=== PATIENT | female | born 1940 | race Caucasian/White ===

== ENCOUNTER 2021-03-07 15:27 | Outpatient (REF) | payer MEDICARE, SELFPAY ==
--- NOTE | ~2021-03-07 | XR_ITS ---
EXAMINATION: XR CHEST CLINICAL INFORMATION: Emphysema COMPARISON: Previous chest x-rays most recent July 2017 TECHNIQUE: 2 views of the chest were obtained. FINDINGS: The cardiac silhouette does not appear enlarged. The pulmonary chun are prominent questionable for pulmonary artery hypertension. The thoracic aorta is slightly tortuous and calcified. The lungs are well inflated. There is tenting of the right hemidiaphragm. The lungs are otherwise clear. There is no pleural effusion or pneumothorax. There is mild scoliosis and degenerative change of the spine. XR/XR chest 2V IMPRESSION: Well-inflated length lungs. Prominent pulmonary arteries questionable for pulmonary artery hypertension.
== END 2021-03-07 15:28 | disposition home or self-care (01) ==
LOC: HO.XRAY 15:27
PROVIDERS: PCP Internal Medicine; Visit Provider Internal Medicine
DX: J43.1 Panlobular emphysema (principal)
CPT/HCPCS: 71046

== ENCOUNTER → 2021-06-27 15:14 | Outpatient (BNVA) | payer MEDICARE, SELFPAY | PROVIDERS: PCP Internal Medicine; Visit Provider Hospitalist | DX: J43.2 Centrilobular emphysema (principal); J96.11 Chronic respiratory failure with hypoxia; J98.11 Atelectasis; Z88.0 Allergy status to penicillin; Z88.8 Allergy status to other drugs, medicaments and biological substances; Z87.891 Personal history of nicotine dependence | CPT/HCPCS: 99202 ==

== ENCOUNTER 2021-07-11 10:52 | Outpatient (REF) | payer MEDICARE, SELFPAY ==
[2021-07-11 10:56] LABS: MANUAL DIFF FLAG NO
[2021-07-11 11:20] LABS: Basophils Absolute Auto 0.1 X10*3/uL (0.0-0.2); Basophils Percent Auto 0.7 % (0-2); Eosinophils Absolute Auto 0.3 X10*3/uL (0.0-0.4); Eosinophils Percent Auto 4.4 % (0-4); Hematocrit 39.9 % (37-47); Hemoglobin 12.9 g/dl (12.0-16.0); Imm Gran Abs Auto 0.02 X10*3/uL (0.00-0.03); Imm Gran Pct Auto 0.3 % (0.0-0.4); Lymphocytes Absolute Auto 1.8 X10*3/uL (1.2-4.9); Lymphocytes Percent Auto 23.8 % (20-40); Mean Corpuscular HGB Conc 32.3 g/dl (31.0-35.0); Mean Corpuscular Hemoglobin 28.5 pg (27.0-33.0); Mean Corpuscular Volume 88.3 fL (80-98); Mean Platelet Volume 10.1 fL (9.4-12.3); Monocytes Absolute Auto 0.7 X10*3/uL (0.1-1.2); Monocytes Percent Auto 9.8 % (2-11); Neutrophils Absolute Auto 4.6 X10*3/uL (2.0-8.3); Platelet Count 286 X10*3/uL (160-400); Red Blood Count 4.52 X10*6/uL (4.20-5.50); Red Cell Distribution Width 12.8 % (11.0-16.0); White Blood Count 7.6 X10*3/uL (4.8-10.8)
[2021-07-11 11:33] LABS: Glucose Urine UA NEG (NEG); Leukocyte Esterase Urine 1+ (NEG); Nitrite Urine NEG (NEG); Urine Blood NEG (NEG); Urine Ketones NEG (NEG); Urine Protein NEG (NEG-TRACE)
[2021-07-11 11:52] LABS: Appearance Urine CLEAR; Color Urine YELLOW
[2021-07-11 12:07] LABS: Vitamin D 25-OH Total 24.3 ng/mL (>30)
[2021-07-11 12:08] LABS: Alanine Aminotransferase 12 U/L (0-31); Albumin Level 4.2 g/dL (3.5-5.0); Alkaline Phosphatase 53 U/L (39-117); Anion Gap 13 (12-20); Aspartate Amino Transferase 16 U/L (5-31); Bilirubin Total 0.6 mg/dL (0.0-1.0); Blood Urea Nitrogen 17 mg/dL (9-16); Calcium 9.8 mg/dL (8.4-10.2); Carbon Dioxide 30 mmol/L (22-29); Chloride 97 mmol/L (96-108); Cholesterol 193 mg/dL; Estimated Glomerular Filt Rate 44; Glucose Fasting 98 mg/dL (60-99); HDL Cholesterol 60 mg/dL; LDL Cholesterol Calculated 115 mg/dl; Potassium 4.7 mmol/L (3.3-5.1); Sodium 135 mmol/L (135-145); Total Protein 6.9 g/dL (6.5-8.0); Triglycerides 93 mg/dL
[2021-07-11 12:20] LABS: RBC Urine 0 /HPF (0); Squamous Epithelial Cell Urine 1+ /LPF; WBC Urine 30-49 /HPF (0-4)
[2021-07-11 12:21] LABS: Bacteria Urine 2+ /LPF; Mucus Urine 1+ /LPF; Renal Epithelial Cells Urine 1+ /LPF
== END 2021-07-11 10:53 | disposition home or self-care (01) ==
LOC: HO.LNP 10:52
PROVIDERS: Visit Provider Internal Medicine
DX: I10 Essential (primary) hypertension (principal); E78.00 Pure hypercholesterolemia, unspecified; J43.1 Panlobular emphysema; R79.89 Other specified abnormal findings of blood chemistry; E55.9 Vitamin D deficiency, unspecified
CPT/HCPCS: 80053; 80061; 81001; 81003; 82306; 85025

== ENCOUNTER 2021-07-11 15:47 | Outpatient (REF) | payer MEDICARE, SELFPAY ==
--- NOTE | 2021-07-11 | PFT_ITS ---
Forced vital capacity, FEV1, XIK19-69, and MVV are all markedly decreased. Post bronchodilator therapy, there is only minimal improvement in TMY05-59. No other significant change. Total lung capacity normal. Residual volume moderately increased. Diffusion capacity is markedly decreased. CONCLUSION: Very severe obstructive airway disorder. No significant response to bronchodilator therapy. Compared to the results of 04/28/2015, there is continued worsening of the obstructive component as well as diffusion capacity. Cristiano Jimenez MD MSB/MODL / [id number]
== END 2021-07-11 15:48 | disposition home or self-care (01) ==
LOC: HO.RESP 15:47
PROVIDERS: PCP Internal Medicine; Visit Provider Hospitalist
DX: J44.9 Chronic obstructive pulmonary disease, unspecified (principal); M81.0 Age-related osteoporosis without current pathological fracture
CPT/HCPCS: 80053; 80061; 81001; 82306; 85025; 94060; 94727; 94729

== ENCOUNTER 2021-08-03 15:47 | Outpatient (REF) | payer MEDICARE, SELFPAY ==
--- NOTE | ~2021-08-03 | XR_ITS ---
EXAMINATION: XR CHEST CLINICAL INFORMATION: Dyspnea COMPARISON: Previous chest x-ray most recent March 2021 TECHNIQUE: 2 views of the chest were obtained. FINDINGS: The cardiac and mediastinal contours are stable. The thoracic aorta is tortuous but unchanged. The lungs are well inflated. There is some scarring or subsegmental atelectasis at the right lung base. The lungs are otherwise clear. There is no pleural effusion or pneumothorax. There are degenerative changes of the spine and curvature to the right. XR/XR chest 2V IMPRESSION: Well-inflated lungs. Chronic scarring or subsegmental atelectasis at the right lung base..
== END 2021-08-03 15:48 | disposition home or self-care (01) ==
LOC: HO.XRAY 15:47
PROVIDERS: PCP Internal Medicine; Visit Provider Hospitalist
DX: J43.2 Centrilobular emphysema (principal); J96.11 Chronic respiratory failure with hypoxia
CPT/HCPCS: 71046; 99212

== ENCOUNTER → 2022-03-02 14:32 | Outpatient (BNVA) | payer MEDICARE, SELFPAY | PROVIDERS: PCP Internal Medicine; Visit Provider Hospitalist | DX: J43.2 Centrilobular emphysema (principal); J96.11 Chronic respiratory failure with hypoxia; J98.11 Atelectasis | CPT/HCPCS: 99212 ==

== ENCOUNTER → 2022-04-03 15:27 | Outpatient (BNVA) | payer MEDICARE, SELFPAY | PROVIDERS: PCP Internal Medicine; Referring Provider Internal Medicine; Visit Provider Internal Medicine Cardiovascular Disease | DX: J96.11 Chronic respiratory failure with hypoxia (principal); I25.10 Atherosclerotic heart disease of native coronary artery without angina pectoris | CPT/HCPCS: 93005; 99212 ==

== ENCOUNTER → 2022-06-29 15:44 | Outpatient (BNVA) | payer MEDICARE, SELFPAY | PROVIDERS: PCP Internal Medicine; Visit Provider Hospitalist | DX: J43.2 Centrilobular emphysema (principal); J96.11 Chronic respiratory failure with hypoxia; J98.11 Atelectasis; R06.00 Dyspnea, unspecified; Z79.899 Other long term (current) drug therapy; Z99.81 Dependence on supplemental oxygen | CPT/HCPCS: 99212 ==

== ENCOUNTER 2023-02-22 15:42 | Outpatient (REF) | payer MEDICARE, SELFPAY ==
--- NOTE | ~2023-02-22 | XR_ITS ---
EXAMINATION: XR CHEST CLINICAL INFORMATION: R05.9 - Cough, unspecified COMPARISON: Chest radiographs 08/03/2021, 03/07/2021 TECHNIQUE: 2 views of the chest were obtained. FINDINGS: Lungs are clear and there is no airspace consolidation or groundglass opacity or effusion. Heart size normal. Vascularity normal. The hilar and mediastinal contours and bony structures are similar to prior studies. XR/XR chest 2V IMPRESSION: Lungs clear. No acute intrathoracic disease.
== END 2023-02-22 15:43 | disposition home or self-care (01) ==
LOC: HO.XRAY 15:42
PROVIDERS: PCP Internal Medicine; Visit Provider Hospitalist
DX: R05.9 Cough, unspecified (principal); J43.2 Centrilobular emphysema; J96.11 Chronic respiratory failure with hypoxia; J98.11 Atelectasis
CPT/HCPCS: 71046; 99212

== ENCOUNTER → 2023-05-13 15:29 | Outpatient (BNVA) | payer MEDICARE, SELFPAY | PROVIDERS: PCP Internal Medicine; Referring Provider Internal Medicine; Visit Provider Internal Medicine Cardiovascular Disease | DX: I25.10 Atherosclerotic heart disease of native coronary artery without angina pectoris (principal); R09.89 Other specified symptoms and signs involving the circulatory and respiratory systems | CPT/HCPCS: 93005; 99212 ==

== ENCOUNTER 2023-06-28 11:17 | Outpatient (REF) | payer MEDICARE, SELFPAY ==
[2023-06-28 11:25] LABS: MANUAL DIFF FLAG NO
[2023-06-28 11:30] LABS: Basophils Absolute Auto 0.1 X10*3/uL (0.0-0.2); Basophils Percent Auto 1.1 % (0-2); Eosinophils Absolute Auto 0.3 X10*3/uL (0.0-0.4); Eosinophils Percent Auto 5.1 % (0-4); Hematocrit 40.6 % (37.0-47.0); Hemoglobin 13.4 g/dl (12.0-16.0); Imm Gran Abs Auto 0.03 X10*3/uL (0.00-0.03); Imm Gran Pct Auto 0.5 % (0.0-0.4); Lymphocytes Absolute Auto 1.6 X10*3/uL (1.2-4.9); Lymphocytes Percent Auto 24.1 % (20-40); Mean Corpuscular Hemoglobin 29.5 pg (27.0-33.0); Mean Corpuscular Volume 89.4 fL (80.0-98.0); Mean Platelet Volume 9.8 fL (9.4-12.3); Monocytes Absolute Auto 0.6 X10*3/uL (0.1-1.2); Monocytes Percent Auto 9.9 % (2-11); Neutrophils Absolute Auto 3.9 x10*3/uL (2.0-8.3); Neutrophils Percent Auto 59.3 % (45-73); Platelet Count 271 X10*3/uL (160-400); Red Blood Count 4.54 X10*6/uL (4.20-5.50); White Blood Count 6.5 X10*3/uL (4.8-10.8)
[2023-06-28 11:50] LABS: Alanine Aminotransferase 12 U/L (0-31); Albumin Level 3.8 g/dL (3.5-5.0); Alkaline Phosphatase 60 U/L (39-117); Anion Gap 14 (12-20); Aspartate Amino Transferase 20 U/L (5-31); Bilirubin Total 0.7 mg/dL (0.0-1.0); Blood Urea Nitrogen 14 mg/dL (9-16); Calcium 9.3 mg/dL (8.4-10.2); Carbon Dioxide 27 mmol/L (22-29); Chloride 96 mmol/L (96-108); Cholesterol 174 mg/dL; Estimated Glomerular Filt Rate 51; Glucose Fasting 96 mg/dL (60-99); HDL Cholesterol 68 mg/dL; LDL Cholesterol Calculated 94 mg/dl; Phosphorus 3.7 mg/dL (2.7-4.5); Potassium 4.5 mmol/L (3.3-5.1); Sodium 132 mmol/L (135-145); Total Protein 6.7 g/dL (6.5-8.0); Triglycerides 63 mg/dL
[2023-06-28 12:03] LABS: Vitamin D 25-OH Total 19.7 ng/mL (>30)
== END 2023-06-28 11:18 | disposition home or self-care (01) ==
LOC: HO.LNP 11:17
PROVIDERS: Referring Provider Internal Medicine Nephrology; Visit Provider Internal Medicine
DX: I12.9 Hypertensive chronic kidney disease with stage 1 through stage 4 chronic kidney disease, or unspecified chronic kidney disease (principal); N18.31 Chronic kidney disease, stage 3a; E78.00 Pure hypercholesterolemia, unspecified; E55.9 Vitamin D deficiency, unspecified; I70.1 Atherosclerosis of renal artery
CPT/HCPCS: 80053; 80061; 82306; 84100; 85025

== ENCOUNTER 2023-09-23 10:56 | Outpatient (REF) | payer MEDICARE, SELFPAY ==
[2023-09-23 10:59] LABS: MANUAL DIFF FLAG NO
[2023-09-23 11:15] LABS: Basophils Absolute Auto 0.1 X10*3/uL (0.0-0.2); Basophils Percent Auto 1.2 % (0-2); Eosinophils Absolute Auto 0.4 X10*3/uL (0.0-0.4); Eosinophils Percent Auto 5.1 % (0-4); Hematocrit 41.7 % (37.0-47.0); Hemoglobin 13.9 g/dl (12.0-16.0); Imm Gran Abs Auto 0.01 X10*3/uL (0.00-0.03); Imm Gran Pct Auto 0.1 % (0.0-0.4); Lymphocytes Absolute Auto 1.9 X10*3/uL (1.2-4.9); Lymphocytes Percent Auto 25.6 % (20-40); Mean Corpuscular HGB Conc 33.3 g/dl (31.0-35.0); Mean Corpuscular Hemoglobin 30.3 pg (27.0-33.0); Mean Corpuscular Volume 90.8 fL (80.0-98.0); Monocytes Absolute Auto 0.8 X10*3/uL (0.1-1.2); Monocytes Percent Auto 10.3 % (2-11); Neutrophils Absolute Auto 4.2 x10*3/uL (2.0-8.3); Neutrophils Percent Auto 57.7 % (45-73); Platelet Count 273 X10*3/uL (160-400); Red Blood Count 4.59 X10*6/uL (4.20-5.50); Red Cell Distribution Width 13.2 % (11.0-16.0); White Blood Count 7.3 X10*3/uL (4.8-10.8)
[2023-09-23 11:31] LABS: Cholesterol 185 mg/dL (<200); HDL Cholesterol 77 mg/dL (>40); LDL Cholesterol Calculated 95 mg/dL (<100); Triglycerides 67 mg/dL (<150)
[2023-09-23 11:42] LABS: Alanine Aminotransferase 13 U/L (0-31); Albumin Level 4.1 g/dL (3.5-5.0); Alkaline Phosphatase 64 U/L (39-117); Anion Gap 12 (12-20); Aspartate Amino Transferase 20 U/L (5-31); Bilirubin Total 0.8 mg/dL (0.0-1.0); Blood Urea Nitrogen 14 mg/dL (9-16); Calcium 9.5 mg/dL (8.4-10.2); Carbon Dioxide 28 mmol/L (22-29); Chloride 98 mmol/L (96-108); Estimated Glomerular Filt Rate 54; Glucose Fasting 98 mg/dL (60-99); Potassium 4.3 mmol/L (3.3-5.1); Sodium 134 mmol/L (135-145); Total Protein 7.2 g/dL (6.5-8.0)
[2023-09-23 11:49] LABS: Vitamin D 25-OH Total 12.3 ng/mL (>30)
[2023-09-23 12:13] LABS: Reflex LDLD? No
== END 2023-09-23 10:57 | disposition home or self-care (01) ==
LOC: HO.LNP 10:56
PROVIDERS: Visit Provider Internal Medicine
DX: I10 Essential (primary) hypertension (principal); E78.00 Pure hypercholesterolemia, unspecified; J43.1 Panlobular emphysema; E55.9 Vitamin D deficiency, unspecified
CPT/HCPCS: 80053; 80061; 82306; 85025

== ENCOUNTER 2023-10-02 15:36 | Outpatient (AMB) | payer MEDICARE, SELFPAY ==
--- NOTE | 2023-10-02 15:38 | A.OFFVIS_ITS ---
Intake Vital Signs 10/02/23 15:45 Height 5 ft 6 in Weight 170 lb BMI 27.4 BP 144/90 H Blood Pressure Location Lt brachial Position Sitting Pulse 60 Pulse Source Pulse Oximeter Intake Visit Reasons: Hypertension Environmental Advisor Required: No Accompanied by: Child Allergies atorvastatin [Lipitor] Allergy (Severe, Verified 10/02/23 15:38) only oral hydralazine [HYDRALAZINE] Allergy (Severe, Unverified 02/22/23 15:50) VOMITING, SYNCOPE labetalol [LABETALOL] Allergy (Unknown, Unverified 02/22/23 15:50) SYNCOPE lisinopril [LISINOPRIL] Allergy (Unknown, Unverified 02/22/23 15:50) HAIR FALLS OUT metoprolol [METOPROLOL] Allergy (Unknown, Unverified 02/22/23 15:50) HAIR FALLS OUT penicillin V Allergy (Unknown, Verified 02/22/23 15:50) yeast infections HPI HPI Comments History of Present Illness Details I had the delight of seeing Bhavna in follow up of her chronic kidney disease and hypertension. She had been accompanied by her daughter. She has been having significant progressive weight loss, but claimed to be fairly stable now. 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 Her BP is currently at goal at home. She is compliant with her medications. She has H/O CVA as well as carotid stenosis. She has no H/O chest pain, dizziness, PND, edema or orthopnea. She also follows up with Dr Isaac Freitas Speech/Language Therapist. Her renal function remains at baseline. She feels her COPD has been progressively getting worse. [facility] Medical History (Updated 10/02/23 @ 16:09 by Andrey Nuñez MD) Cough History of sepsis (~01/2017) Hyperlipidemia Hypertension Former smoker, stopped smoking in distant past CAD (coronary artery disease) Osteoporosis (~2018) Stenosis of middle cerebral artery History of TIAs History of CVA (cerebrovascular accident) (~07/2017) Dyspnea Atelectasis Chronic hypoxemic respiratory failure COPD (chronic obstructive pulmonary disease) Surgical History History of heart artery stent (~2011) History of hand surgery (~2004) History of left knee replacement (~2014) History of arthroscopy of right knee (~2003) History of carpal tunnel surgery of left wrist (~1998) Family History Brother CAD (coronary artery disease) Father CAD (coronary artery disease) Myocardial infarction Mother Leukemia Social History Patient Tobacco Use Status: Former Tobacco user Quit Date: 2001 Tobacco use type: Cigarette Years Smoked: (1ppd x 40yrs, quit 2001) Review of Systems Const All systems reviewed & are unremarkable except as noted in HPI and below Physical Exam Vital Signs: Last Vital Signs Pulse 60 10/02/23 15:45 BP 144/90 H 10/02/23 15:45 BMI result Body Mass Index 27.4 Const General: no acute distress Orientation/consciousness: patient oriented x3 HEENT Head: Yes normocephalic Mouth: Normal oral and palatal mucosa present Eyes EOM: EOMs intact bilaterally Neck Neck: Yes supple Resp Auscultation: diminished lung sounds Cardio Jugular venous distension: no JVD Rate: regular rate GI Palpation (GI): Soft to palpation Auscultation: normal bowel sounds Skin General skin exam: no rashes or lesions noted Neuro General: patient oriented x3 and moves all extremities Extrem Other: No edema Assessment & Plan Assessment & Plan (1) CKD (chronic kidney disease) stage 3, GFR 30-59 ml/min: Code(s): N18.30 - Chronic kidney disease, stage 3 unspecified (2) Hypertension: Code(s): I10 - Essential (primary) hypertension Plan CKD 3 due to jeannette vascular disease and ischemic nephropathy Hemodynamics stable. BP at goal; Volume status optimal Tolerating ARB. Renal function remains at baseline Low sodium diet; Good hydration; No NSAID's Reordered losartan. Follow up blood work ordered More than 50 % time spent discussing her CKD/HTN All her and her daughters questions answered; F/U given Orders: Orders Electrolytes Today I10 - Essential (primary) hypertension, N18.30 - Chronic kidney disease, stage 3 unspecified Blood Urea Nitrogen Today I10 - Essential (primary) hypertension, N18.30 - Chronic kidney disease, stage 3 unspecified Creatinine Today I10 - Essential (primary) hypertension, N18.30 - Chronic kidney disease, stage 3 unspecified Calcium Today I10 - Essential (primary) hypertension, N18.30 - Chronic kidney disease, stage 3 unspecified Medications: New losartan (1.5 x 50 mg) 75 mg orally; Take 25mg at noon 50mg at night 145 tabs 8RF Coding Level of Care Code Est Pt Level 5 (09891) Diagnoses CKD (chronic kidney disease) stage 3, GFR 30-59 ml/min N18.30 Hypertension I10
[2023-10-02 15:45] VITALS: BP 144/90; PULSE 60; BMI 27.4
== END 2023-10-02 17:38 | disposition home or self-care (01) ==
PROVIDERS: PCP Internal Medicine; Visit Provider Internal Medicine Nephrology
DX: N28.0 Ischemia and infarction of kidney (principal); I12.9 Hypertensive chronic kidney disease with stage 1 through stage 4 chronic kidney disease, or unspecified chronic kidney disease; N18.30 Chronic kidney disease, stage 3 unspecified
CPT/HCPCS: 99214

== ENCOUNTER → 2023-10-02 15:36 | Outpatient (BNVA) | payer MEDICARE, SELFPAY | PROVIDERS: PCP Internal Medicine; Visit Provider Internal Medicine Nephrology | DX: I12.9 Hypertensive chronic kidney disease with stage 1 through stage 4 chronic kidney disease, or unspecified chronic kidney disease (principal); N18.30 Chronic kidney disease, stage 3 unspecified | CPT/HCPCS: 99212 ==

== ENCOUNTER 2024-05-18 15:01 | Outpatient (AMB) | payer MEDICARE, SELFPAY ==
[2024-05-18 15:17] VITALS: BP 122/80; PULSE 57; BMI 26.3
--- NOTE | 2024-05-18 15:17 | A.OFFVIS_ITS ---
Vital Signs 05/18/24 15:17 Height 5 ft 6 in Weight 163 lb 2.273 oz BMI 26.3 BP 122/80 Blood Pressure Location Lt brachial Position Sitting Pulse 57 Intake Visit Reasons: 1 year follow up Intake Note: 1 year follow-up with ekg feeling good Vibrating Screen Operator Required: No Allergies atorvastatin [Lipitor] Allergy (Severe, Verified 10/02/23 15:38) only oral hydralazine [HYDRALAZINE] Allergy (Severe, Unverified 02/22/23 15:50) VOMITING, SYNCOPE labetalol [LABETALOL] Allergy (Unknown, Unverified 02/22/23 15:50) SYNCOPE lisinopril [LISINOPRIL] Allergy (Unknown, Unverified 02/22/23 15:50) HAIR FALLS OUT metoprolol [METOPROLOL] Allergy (Unknown, Unverified 02/22/23 15:50) HAIR FALLS OUT penicillin V Allergy (Unknown, Verified 02/22/23 15:50) yeast infections Medication List - Last Reconciled 05/18/24 by Isaac Alonzo MD albuterol sulfate 90 mcg/actuation 1 puff PO Q4H PRN alirocumab (Praluent Pen) 150 mg subcut Q2W aspirin 81 mg PO DAILY budesonide 0.25 mg (2 mL) inhalation BID 30 days carvedilol 25 mg PO BID celecoxib 200 mg PO DAILY PRN doxazosin 4 mg PO DAILY fluoxetine 20 mg PO DAILY ipratropium-albuterol 0.5 mg-3 mg(2.5 mg base)/3 mL 3 mL inhalation QID 30 days losartan 75 mg orally; Take 25mg at noon 50mg at night nebulizers As directed omeprazole 20 mg PO DAILY Oxygen Home Use As directed spironolactone 25 mg PO DAILY HPI Comments Details: Bhavna comes for follow-up. She is accompanied by her daughter. She has been doing well from her perspective. She continues to have significant exertional shortness of breath and fatigue related to COPD. Has been advised to use oxygen all the time. No anginal sounding chest discomfort which was interscapular and right shoulder discomfort for her. She is taking all her medications. Her LDL is well optimized for her at 94 mg/dL. A blood pressure is also not well optimized. She has no lightheadedness, syncope. No clear orthopnea, PND, palpitations. She does have swelling in the left lower extremity since the warm weather. [facility] Medical History (Updated 10/02/23 @ 16:09 by Andrey Nuñez MD) Cough History of sepsis (~01/2017) Hyperlipidemia Hypertension Former smoker, stopped smoking in distant past CAD (coronary artery disease) Osteoporosis (~2018) Stenosis of middle cerebral artery History of TIAs History of CVA (cerebrovascular accident) (~07/2017) Dyspnea Atelectasis Chronic hypoxemic respiratory failure COPD (chronic obstructive pulmonary disease) Surgical History History of heart artery stent (~2011) History of hand surgery (~2004) History of left knee replacement (~2014) History of arthroscopy of right knee (~2003) History of carpal tunnel surgery of left wrist (~1998) Family History Brother CAD (coronary artery disease) Father CAD (coronary artery disease) Myocardial infarction Mother Leukemia Social History Patient Tobacco Use Status: Former Tobacco user Tobacco use type: Cigarette Years Smoked: (1ppd x 40yrs, quit 2001) Review of Systems Const Denies chills, Denies fatigue, Denies fever(s), Denies frequent falls, Denies weakness, Denies weight gain and Denies weight loss ENT Denies dizziness Card Denies chest pain, Denies leg edema, Denies lightheadedness, Denies palpitations, Denies dyspnea, Denies dyspnea on exertion, Denies orthopnea and Denies other (loss of consciousness) Resp Denies cough, Denies dyspnea and Denies dyspnea on exertion GI Denies hematochezia and Denies change in stool character Musc Denies abnormal gait, Denies muscle weakness, Denies numbness, Denies radiating pain into limb and Denies tingling Neuro Denies abnormal gait, Denies dizziness, Denies frequent falls, Denies numbness, Denies tingling and Denies weakness Endo Denies fatigue and Denies palpitations Physical Exam Vital Signs: Last Vital Signs Pulse 57 05/18/24 15:17 BP 122/80 05/18/24 15:17 BMI result Body Mass Index 26.3 Const General: cooperative, comfortable, no acute distress, alert and awake Nutritional Appearance: obese Orientation/consciousness: patient oriented x3 Limitations: ambulation with walker Neck Neck: Yes trachea midline, Yes supple and Yes no JVD Resp Effort & Inspection: normal respiratory effort Auscultation: diminished lung sounds Cardio Jugular venous distension: no JVD Palpation: normal PMI Rate: regular rate Rhythm: regular rhythm Heart sounds: S1 normal heart sound present, S2 normal heart sound present, no click, no gallops, no murmurs and no rubs GI Inspection: Yes obesity Auscultation: normal bowel sounds Skin General skin exam: no rashes or lesions noted and ecchymosis Neuro General: patient oriented x3 and no focal motor deficits Extrem General: No clubbing, No cyanosis and Yes pedal edema (Left lower extremity) Office Procedures EKG Details: EKG shows sinus bradycardia at 57 beats per minute bifascicular, 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 Given her current limited functional status will continue medical therapy. No further workup is indicated. Continue lifelong aspirin therapy. Has had significant response to PCSK9 inhibitor therapy on a long-term basis will continue Praluent to improve her vascular outcomes. Continue aggressive blood pressure control, see below. Encouraged to use oxygen all the time for her hypoxemic respiratory failure. (2) Labile blood pressure: Code(s): R09.89 - Other specified symptoms and signs involving the circulatory and respiratory systems Category: Medical Plan: Markedly labile blood pressure which is not well controlled on current regimen. She has had difficulty managing a blood pressure but at current time she is doing well with her meds. Importance of good blood pressure control was discussed. Low-salt diet was discussed. Advised to maintain adequate hydration. Orthostatic precautions were discussed. Will follow up in the clinic in 1 year's time, sooner p.r.n.. Thank you for allowing me to partake in her care Medications: Refilled alirocumab (Praluent Pen) 150 mg subcut Q2W 6 mL 3RF Coding Level of Care Code Est Pt Level 4 (64210) Diagnoses CAD (coronary artery disease) I25.10 Labile blood pressure R09.89 CPT Codes EKG - CPT: 86155-[id number], Complete ([id number])
== END 2024-05-18 15:49 | disposition home or self-care (01) ==
PROVIDERS: PCP Internal Medicine; Visit Provider Internal Medicine Cardiovascular Disease
DX: I25.10 Atherosclerotic heart disease of native coronary artery without angina pectoris (principal); R09.89 Other specified symptoms and signs involving the circulatory and respiratory systems
CPT/HCPCS: 93010; 99214

== ENCOUNTER → 2024-05-18 15:01 | Outpatient (BNVA) | payer MEDICARE, SELFPAY | PROVIDERS: PCP Internal Medicine; Visit Provider Internal Medicine Cardiovascular Disease | DX: I25.10 Atherosclerotic heart disease of native coronary artery without angina pectoris (principal); R09.89 Other specified symptoms and signs involving the circulatory and respiratory systems | CPT/HCPCS: 93005; 99212 ==

== ENCOUNTER 2024-06-29 13:54 | Outpatient (AMB) | payer MEDICARE, SELFPAY ==
--- NOTE | 2024-06-29 14:02 | A.OFFVIS_ITS ---
Vital Signs 06/29/24 14:05 Height 5 ft 6 in Weight 163 lb 2.273 oz BMI 26.3 Pulse 63 Pulse Source Pulse Oximeter Pulse Oximetry (%) 92 Oxygen Delivery Method Room Air Comment 2 Liters Oxygen([facility]) Intake Visit Reasons: COPD Registered Route Associate Required: No Allergies atorvastatin [Lipitor] Allergy (Severe, Verified 06/29/24 14:08) only oral hydralazine [HYDRALAZINE] Allergy (Severe, Unverified 06/29/24 14:08) VOMITING, SYNCOPE labetalol [LABETALOL] Allergy (Unknown, Unverified 06/29/24 14:08) SYNCOPE lisinopril [LISINOPRIL] Allergy (Unknown, Unverified 06/29/24 14:08) HAIR FALLS OUT metoprolol [METOPROLOL] Allergy (Unknown, Unverified 06/29/24 14:08) HAIR FALLS OUT penicillin V Allergy (Unknown, Verified 06/29/24 14:08) yeast infections HPI Comments Details: The patient is a 84-year-old with a standing history of COPD. The patient taking her inhalers prescribed. This includes Symbicort and Spiriva. However she has been complaining worsening dyspnea exertion, moderate to severe. Therefore she has not been very active. Severe years ago The patient was admitted to the hospital with symptoms consistent with CVA. She did have a chest x-ray demonstrating atelectasis. During that hospitalization she was also transferred to [facility] for an acute CVA. She did not require any tPA. Currently she is taking a baby aspirin. During the visit today the patient did desaturate during 6 minutes walk test. The patient did qualify for oxygen. Therefore she was placed on 2 L of oxygen and overall she felt lot better. Therefore, I did recommend she start oxygen. She does not like the idea of using a nasal cannula. She is wondering about using a mask. Explained to her that she will need to use a nasal cannula especially for trying to get her a conserving device that she would likely need due to her handicap stay she will need better portability and that will be with a pulse valve. 08/03/2021 the patient is here for a pulmonary follow-up visit. Overall the patient has been doing better on the oxygen. She feels like she is less winded. Although, the oxygen tank does way a lot for her. She does use a walker and she is hopefully getting basket which she can put the small continues tank. OB hard for her to use the pulse valve because she is a mouth breather. In the meantime she should be using the concentrator in the house with the extension cord that will help as well. The patient did undergo pulmonary function studies demonstrating severe COPD with very severe diffusion impairment which goes franck g with her degree of symptoms. She has been on Symbicort and had added Spiriva during the last time. The therapy has been effective. She is wondering if she can try an alternative to see if she can get even better response. I do have a sample trial for Trelegy which I will give her to try for a month to see if this is more effective than the combination that she is on right now. The patient a lso did not go for chest x-ray and she will do that today. If her x-ray is any worse will go ahead and has a further adjusted changes. However if the chest x- ray has not significantly changed will just follow her chest x-rays. The patient is not interested in having extensive evaluations. 03/02/2022 for the patient is here for pulmonary follow-up visit. She continues to have dyspnea on exertion and chest tightness. Moderate severity. She has not gotten any significant relief from the Trelegy. Is also very expensive for her. She does get more relief from her nebulizer. Therefore I did talk to about switching over to just nebulized therapy to try to administer the medication more effectively. The patient is open to this idea. However, she does have a couple new boxes of Trelegy at home. The patient will start DuoNeb 4 times a day and budesonide twice a day. In the meantime I did review her chest x-ray with her demonstrated no acute changes from back in the fall 2020. If the patient continues to be symptomatic will repeat the ox x-ray and potentially additional imaging if that is not helpful. The patient continues use her oxygen both with activity and sleep this has been affecting beneficial for her. She did get a small conserving device which has made a lot easier for portability. 02/22/2023 the patient is here for a pulmonary follow-up visit. Does have dyspnea with activity, mild to moderate. The budesonide has been helpful. In addition to that she has been using her DuoNeb 4 times a day. Using the Combivent instead of the DuoNeb and also at times. She continues use the oxygen with good effect. She has not had to increase the amount. Patient did have a chest x-ray previously that with did evaluate together in the office. It appears that she has some minimal atelectasis at the base. However repeat the x-ray to make sure that has not worsened. Otherwise she is going to continue with current respiratory therapy. 06/29/2024 the patient is here for a pulmonary follow-up visit. The patient overall has been doing okay. Although she has been having significant weight loss. She also has a hard time walking. She is currently on a wheelchair. She does use the oxygen although she does not use it all the time. She knows to use it specially if she is moving around. She does get very short of breath when she is doing minimal activities that is because she sometimes does not use her oxygen. She does check her numbers and sometimes she is in the 80s as far as her oxygen presented patient understands that she needs to keep her oxygen on to maintain a pulse ox above 90%. She has not issues she will call. In the meantime she does continue to use the budesonide with albuterol with ipratropium. She does use the nebulizer about 4 times a day which is her most effective therapy. Will continue the current respiratory regimen. The patient also should get a chest x-ray specially with weight loss. Otherwise patient return in 1 year or sooner if she develops any worsening symptoms. For x-rays abnormal we may need additional imaging studies. [facility] Medical History (Updated 10/02/23 @ 16:09 by Andrey Nuñez MD) Cough History of sepsis (~01/2017) Hyperlipidemia Hypertension Former smoker, stopped smoking in distant past CAD (coronary artery disease) Osteoporosis (~2018) Stenosis of middle cerebral artery History of TIAs History of CVA (cerebrovascular accident) (~07/2017) Dyspnea Atelectasis Chronic hypoxemic respiratory failure COPD (chronic obstructive pulmonary disease) Surgical History History of heart artery stent (~2011) History of hand surgery (~2004) History of left knee replacement (~2014) History of arthroscopy of right knee (~2003) History of carpal tunnel surgery of left wrist (~1998) Family History Brother CAD (coronary artery disease) Father CAD (coronary artery disease) Myocardial infarction Mother Leukemia Social History Patient Tobacco Use Status: Former Tobacco user Tobacco use type: Cigarette Years Smoked: (1ppd x 40yrs, quit 2001) Review of Systems Const Denies night sweats and Reports weight loss ENT Denies change in voice, Denies lip swelling, Denies mouth pain, Reports nasal congestion, Reports nasal discharge and Denies tongue swelling Card Denies chest pain and Reports dyspnea on exertion Resp Reports cough and Reports dyspnea on exertion GI Denies abdominal pain Musc Denies no additional complaints and Reports abnormal gait Neuro Reports abnormal gait Psych Denies no additional complaints Nic/Lymph Denies easy bleeding and Denies lymphadenopathy Aller/Immun Denies lip swelling and Denies tongue swelling Physical Exam Vital Signs: Last Vital Signs Pulse 63 06/29/24 14:05 Pulse Ox 92 06/29/24 14:05 Oxygen Delivery Method Room Air 06/29/24 14:05 BMI result Body Mass Index 26.3 Const General: alert Neck Neck: Yes normal visual inspection, Yes full ROM and Yes no lymphadenopathy Chest Chest palpation & inspection: normal inspection of the chest Resp Auscultation: diminished lung sounds Cardio Rate: regular rate Rhythm: regular rhythm Heart sounds: S1 normal heart sound present and S2 normal heart sound present GI Palpation (GI): Soft to palpation and nontender Auscultation: normal bowel sounds Skin General skin exam: rashes and/or lesions noted Assessment & Plan Assessment & Plan (1) COPD (chronic obstructive pulmonary disease): Code(s): J44.9 - Chronic obstructive pulmonary disease, unspecified Category: Medical Qualifiers: COPD type: emphysema Emphysema type: centrilobular Qualified Code(s): J43.2 - Centrilobular emphysema (2) Chronic hypoxemic respiratory failure: Code(s): J96.11 - Chronic respiratory failure with hypoxia Category: Medical (3) Atelectasis: Code(s): J98.11 - Atelectasis Category: Medical (4) Dyspnea: Code(s): R06.00 - Dyspnea, unspecified Category: Medical Qualifiers: Dyspnea type: dyspnea on exertion Qualified Code(s): R06.00 - Dyspnea, unspecified Plan continue Duoneb QID continue BUdesonide nebs BID THELMA CXR Continue Oxygen 2L with activity and sleep F/U 10-12 months Orders: Orders XR chest 2V Today J43.2 - Centrilobular emphysema Medications: New albuterol sulfate 90 mcg/actuation 2 inhalations inhalation Q6H PRN 18 grams 12RF shortness of breath or wheezing 30 days J44.9 - Chronic obstructive pulmonary disease, unspecified Refilled ipratropium-albuterol 0.5 mg-3 mg(2.5 mg base)/3 mL 3 mL inhalation QID 360 mL 11RF 30 days J44.9 - Chronic obstructive pulmonary disease, unspecified budesonide 0.25 mg (2 mL) inhalation BID 120 mL 11RF 30 days J43.2 - Centrilobular emphysema Coding Level of Care Code Est Pt Level 4 (17748) Complex EM visit Add On G2211 Diagnoses Centrilobular emphysema J43.2 COPD type: emphysema Emphysema type: centrilobular Chronic hypoxemic respiratory failure J96.11 Atelectasis J98.11 Dyspnea on exertion R06.00 Dyspnea type: dyspnea on exertion Time Spent (min) 17
[2024-06-29 14:05] VITALS: PULSE 63; O2SAT 92; BMI 26.3
== END 2024-06-29 15:25 | disposition home or self-care (01) ==
PROVIDERS: PCP Internal Medicine; Visit Provider Hospitalist
DX: J43.2 Centrilobular emphysema (principal); J96.11 Chronic respiratory failure with hypoxia; J98.11 Atelectasis; R06.00 Dyspnea, unspecified
CPT/HCPCS: 99214; G2211

== ENCOUNTER 2024-06-29 13:54 | Outpatient (REF) | payer MEDICARE, SELFPAY ==
--- NOTE | ~2024-06-29 | XR_ITS ---
EXAMINATION: XR CHEST CLINICAL INFORMATION: Centrilobular emphysema. COMPARISON: Chest radiographs dated 02/22/2023; CTA chest dated 11/04/2014. TECHNIQUE: Frontal and lateral views of the chest were obtained. FINDINGS: The heart, great vessels, pulmonary vasculature and mediastinum are stable. There is atherosclerotic calcification and tortuosity of the thoracic aorta. There is hyperinflation. There is mild vertical linear scar/subsegmental atelectasis at the right base, stable from prior examinations including 08/03/2021. No pleural effusion or pneumothorax is seen. There is no acute osseous abnormality. XR/XR chest 2V IMPRESSION: There is mild chronic scar/subsegmental atelectasis at the right base. No focal infiltrate or congestive heart failure is seen.
== END 2024-06-29 13:55 | disposition home or self-care (01) ==
LOC: HO.XRAY 13:54
PROVIDERS: PCP Internal Medicine; Visit Provider Hospitalist
DX: J43.2 Centrilobular emphysema (principal); J96.11 Chronic respiratory failure with hypoxia; J98.11 Atelectasis
CPT/HCPCS: 71046; 99212

== ENCOUNTER 2024-09-11 22:45 | Emergency (ER) | payer MEDICARE, SELFPAY ==
--- NOTE | ~2024-09-11 | CT_ITS ---
EXAMINATION: CT PELVIS WITHOUT CONTRAST CLINICAL INFORMATION: Occult right hip fracture COMPARISON: Right hip radiograph 09/12/2024. TECHNIQUE: Helical scanning was performed with submillimeter collimation through the pelvis. Sagittal and coronal multiplanar 2-D reconstructions were obtained. This CT examination was performed using dose optimization techniques as appropriate, variously including the following: *Automated exposure control *Adjustment of mA and/or kV according to patient size (this includes techniques or standardized protocols for targeted exams where dose is matched to indication/reason for exam; i.e. extremities or head) *Use of iterative reconstruction technique DLP: 396 mGy-cm FINDINGS: The visualized sacrum appears intact. No compression deformities noted in the visualized lower lumbar vertebral bodies. No fractures of the pelvis noted. No diastases of the sacroiliac joints or symphysis pubis. Intact posterior noriega of the acetabulum. The visualized femurs are normal in appearance. Within the abdomen and pelvis no free intraperitoneal fluid collections. Dense aortoiliac calcific atherosclerosis. No soft tissue inflammatory changes noted in the region of the hips. CT/CT pelvis wo IV con IMPRESSION: No acute abnormalities identified. Intact right femur and right hip. Dense aortoiliac calcific atherosclerosis. Electronically signed by: Jamison Landaverde MD 09/12/2024 03:17 AM EDT
--- NOTE | ~2024-09-11 | XR_ITS ---
EXAMINATION: XR CHEST 1 VIEW, XR HIP 1 VIEW RIGHT WITH PELVIS CLINICAL INFORMATION: fall COMPARISON: None. TECHNIQUE: AP pelvis and 2 view series of the right hip; AP chest FINDINGS: Pelvis and right hip: Visualized sacrum appears intact. Partial visualization is made of lower lumbar facet and endplate hypertrophic changes. Arthropathic changes of the hips noted. The visualized right femur appears intact. The posterior wall the right acetabulum appears intact. Moderate scattered atherosclerotic vascular calcifications are noted. CHEST: Normal appearance of the cardiomediastinal structures. Moderate aortic calcific atherosclerosis. No effusions or pneumothoraces. Normal pattern of pulmonary vasculature. No focal pulmonary consolidation. Calcific plaques in the region of the left carotid bulb. Punctate dystrophic calcification along the distal aspect of the left supraspinatus tendon. XR/XR chest 1V IMPRESSION: AP pelvis and right hip: No acute abnormalities. Intact right hip. CHEST: No acute cardiopulmonary abnormalities. Partial visualization of left carotid bulb calcific atherosclerotic plaques. 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 Electronically signed by: Jamison Landaverde MD 09/12/2024 01:52 AM EDT
--- NOTE | ~2024-09-11 | XR_ITS ---
EXAMINATION: XR CHEST 1 VIEW, XR HIP 1 VIEW RIGHT WITH PELVIS CLINICAL INFORMATION: fall COMPARISON: None. TECHNIQUE: AP pelvis and 2 view series of the right hip; AP chest FINDINGS: Pelvis and right hip: Visualized sacrum appears intact. Partial visualization is made of lower lumbar facet and endplate hypertrophic changes. Arthropathic changes of the hips noted. The visualized right femur appears intact. The posterior wall the right acetabulum appears intact. Moderate scattered atherosclerotic vascular calcifications are noted. CHEST: Normal appearance of the cardiomediastinal structures. Moderate aortic calcific atherosclerosis. No effusions or pneumothoraces. Normal pattern of pulmonary vasculature. No focal pulmonary consolidation. Calcific plaques in the region of the left carotid bulb. Punctate dystrophic calcification along the distal aspect of the left supraspinatus tendon. XR/XR hip RT w PEL1V IMPRESSION: AP pelvis and right hip: No acute abnormalities. Intact right hip. CHEST: No acute cardiopulmonary abnormalities. Partial visualization of left carotid bulb calcific atherosclerotic plaques. 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 Electronically signed by: Jamison Landaverde MD 09/12/2024 01:52 AM EDT
[2024-09-11 22:48] VITALS: BP 184/122; PULSE 88; O2SAT 93
[2024-09-11 22:59] VITALS: BP 215/91; PULSE 83; RESP 18; TEMP 36.8; O2SAT 94
[2024-09-11 23:04] VITALS: BP 190/98; PULSE 86; RESP 20; TEMP 36.4; O2SAT 95; BMI 28.2
[2024-09-11 23:09] VITALS: BP 190/98; PULSE 85; RESP 17; TEMP 36.6; O2SAT 95
--- NOTE | 2024-09-11 23:11 | ED.FALL ---
HPI - Fall General Chief Complaint: Fall Stated Complaint: FALL + COLLAR Time Seen by Provider: 09/11/24 23:11 Source: patient Mode of arrival: ambulatory Limitations: no limitations History of Present Illness ED Provider: heri PARNELL Narrative: 84 years old with history of hypertension coronary artery disease history of CVA on aspirin comes here as patient went to kitchen to open the reached to get something lost balance and fell on her right hip was unable to stand up because of pain no other injuries Related Data Home Medications ?Medication ?Instructions ?Recorded ?Confirmed albuterol sulfate 90 mcg/actuation 1 puff PO Q4H PRN Shortness Of 08/03/21 09/12/24 aerosol inhaler Breath Or Wheezing aspirin 81 mg tablet,delayed 81 mg PO DAILY 08/03/21 09/12/24 release doxazosin 4 mg tablet 4 mg PO DAILY 08/03/21 09/12/24 omeprazole 20 mg capsule,delayed 20 mg PO DAILY 08/03/21 09/12/24 release spironolactone 25 mg tablet 25 mg PO DAILY 08/03/21 09/12/24 fluoxetine 20 mg capsule 20 mg PO DAILY 03/02/22 09/12/24 Oxygen Home Use 02/22/23 05/18/24 nebulizers 02/22/23 05/18/24 celecoxib 200 mg capsule 200 mg PO DAILY PRN Pain 10/02/23 09/12/24 Previous Rx's ?Medication ?Instructions ?Recorded losartan 50 mg tablet 75 mg (1.5 x 50 mg) PO .COMPLEX 10/02/23 #145 tabs carvedilol 25 mg tablet 25 mg PO BID #180 tabs 11/29/23 alirocumab 150 mg/mL subcutaneous 150 mg subcut Q2W #6 mL 05/18/24 pen injector (Praluent Pen) budesonide 0.25 mg/2 mL suspension 0.25 mg (2 mL) inhalation BID 30 06/29/24 for nebulization days #120 mL ipratropium 0.5 mg-albuterol 3 mg 3 ml inhalation QID 30 days #360 mL 06/29/24 (2.5 mg base)/3 mL nebulization soln Allergies Allergy/AdvReac Type Severity Reaction Status Date / Time atorvastatin [Lipitor] Allergy Severe only oral Verified 09/11/24 23:06 hydralazine [HYDRALAZINE] Allergy Severe VOMITING, Verified 09/11/24 23:06 SYNCOPE labetalol [LABETALOL] Allergy Unknown SYNCOPE Verified 09/11/24 23:06 lisinopril [LISINOPRIL] Allergy Unknown HAIR FALLS Verified 09/11/24 23:06 OUT metoprolol [METOPROLOL] Allergy Unknown HAIR FALLS Verified 09/11/24 23:06 OUT penicillin V Allergy Unknown yeast Verified 09/11/24 23:06 infections Review of Systems Review of Systems: Yes all other systems are reviewed and are negative [facility] Past Medical History Medical History Cough History of sepsis (~01/2017) Hyperlipidemia Hypertension Former smoker, stopped smoking in distant past CAD (coronary artery disease) Osteoporosis (~2018) Stenosis of middle cerebral artery History of TIAs History of CVA (cerebrovascular accident) (~07/2017) Dyspnea Atelectasis Chronic hypoxemic respiratory failure COPD (chronic obstructive pulmonary disease) Surgical History History of heart artery stent (~2011) History of hand surgery (~2004) History of left knee replacement (~2014) History of arthroscopy of right knee (~2003) History of carpal tunnel surgery of left wrist (~1998) Family History Family History Brother CAD (coronary artery disease) Father CAD (coronary artery disease) Myocardial infarction Mother Leukemia Social History Social History Alcohol intake: current Alcohol type: wine and hard liquor Patient Tobacco Use Status: Former Tobacco user Tobacco use type: Cigarette Years Smoked: (1ppd x 40yrs, quit 2001) Smoked in Last 30 Days: No Use of substances other than those prescribed or required for medical reasons: No Advance Directives: No Advance Directives Information Provided: Yes Do you have a plan to hurt others: No Plan Physical Exam Vital Signs: Vital Signs: Last Vital Signs Temp 97.9 F 09/11/24 23:09 Pulse 68 09/12/24 07:16 Resp 14 09/12/24 07:16 BP 180/83 H 09/12/24 04:00 Pulse Ox 93 09/12/24 04:00 O2 Del Method Nasal Cannula 09/12/24 04:00 O2 Flow Rate 4 09/12/24 04:00 BMI result Body Mass Index 28.2 Appearance: Alert. Oriented X3. No acute distress. Eyes: PERRLA, No Nystagmus ENT: Pharynx normal. Oral Mucosa moist Neck: Normal inspection. Neck supple. CVS: Normal heart rate and rhythm. Pulses normal. Respiratory: No respiratory distress. Equal air entry bilateral, no wheezing/rales/rhonchi Abdomen: Soft and nontender. Bowel sounds are present, no mass palpable, no CVA tenderness Skin: Skin warm and dry. Normal skin color. Normal skin turgor. Extremities: No lower extremity edema. No calf tenderness tenderness right greater trochanteric area no deformity neurovascular intact Neuro: Oriented X 3. No motor deficit. No sensory deficit.No cerebellar signs , cranial nerves II-XII intact Medications Administered Discontinued Medications Generic Name Dose Route Start Last Admin Trade Name Freq PRN Reason Stop Dose Admin Albuterol Sulfate 2.5 mg/ 0 mg 09/12/24 03:39 09/12/24 03:52 Albuterol/Ipratropium 3 ml INHALE 09/12/24 03:40 5 dose ONCE ONE Administration Morphine Sulfate 4 mg 09/11/24 23:28 09/11/24 23:41 Morphine Sulfate 4 Mg/Ml Cartridge IVPUSH 09/11/24 23:29 4 mg ONCE ONE Administration Protocol Ondansetron HCl 4 mg 09/11/24 23:28 09/11/24 23:42 Ondansetron Hcl 4 Mg/2 Ml Vial IVPUSH 09/11/24 23:29 4 mg ONCE ONE Administration Oxycodone HCl 5 mg 09/12/24 04:34 09/12/24 04:47 Oxycodone Hcl Immed Release 5 Mg Tablet PO 09/12/24 04:35 5 mg ONCE ONE Administration Medical Decision Making Medical Decision Making [facility] Narrative: Patient is status post mechanical fall with right hip pain x-ray was negative for fracture CT scan was done to confirm occult fracture which is also negative will ambulate patient plan to discharge able to ambulate Patient is unable to ambulate because of pain will get case management consult for rehab placement patient lives alone Differential Diagnosis Differential Diagnoses: The differential diagnosis associated with the presentation includes Hip fracture/pelvic fracture Lab Data [facility] Lab Attestation statement: I reviewed the patient's lab results. 09/12/24 01:16 09/12/24 01:16 Labs: Lab Results 09/12/24 Range/Units 01:16 WBC 9.7 (4.8-10.8) X10*3/uL RBC 4.66 (4.20-5.50) X10*6/uL Hgb 14.2 (12.0-16.0) g/dl Hct 40.6 (37.0-47.0) % MCV 87.1 (80.0-98.0) fL MCH 30.5 (27.0-33.0) pg MCHC 35.0 (31.0-35.0) g/dl RDW 12.8 (11.0-16.0) % Plt Count 220 (160-400) X10*3/uL MPV 9.1 L (9.4-12.3) fL Immature Gran % (Auto) 0.4 (0.0-0.4) % Neut % (Auto) 84.0 H (45-73) % Lymph % (Auto) 8.3 L (20-40) % [place] % (Auto) 6.3 (2-11) % Eos % (Auto) 0.6 (0-4) % Baso % (Auto) 0.4 (0-2) % Lymph # (Auto) 0.8 L (1.2-4.9) X10*3/uL [place] # (Auto) 0.6 (0.1-1.2) X10*3/uL Eos # (Auto) 0.1 (0.0-0.4) X10*3/uL Baso # (Auto) 0.0 (0.0-0.2) X10*3/uL Abs Immat Gran (auto) 0.04 H (0.00-0.03) X10*3/uL Absolute Neuts (auto) 8.2 (2.0-8.3) x10*3/uL Absolute Nucleated RBC 0.000 (0.0-0.012) X10*3/uL Nucleated RBC % (auto) 0.0 (0.0-0.2) /100WBC PT 11.3 (10.9-12.4) SEC INR 1.0 (0.9-1.1) Sodium 131 L (135-145) mmol/L Potassium 4.7 (3.3-5.1) mmol/L Chloride 97 (96-108) mmol/L Carbon Dioxide 24 (22-29) mmol/L Anion Gap 15 (12-20) BUN 19 H (9-16) mg/dL Creatinine 1.05 (0.5-1.4) mg/dL Estim Creat Clear Calc 45.4 Estimated GFR 50 Random Glucose 105 (60-115) mg/dL Calcium 9.8 (8.4-10.2) mg/dL Total Bilirubin 0.6 (0.0-1.0) mg/dL AST 19 (5-31) U/L ALT 15 (0-31) U/L Alkaline Phosphatase 72 (39-117) U/L Total Protein 7.1 (6.5-8.0) g/dL Albumin 4.0 (3.5-5.0) g/dL Independent Interpretation I performed an independent interpretation of an: EKG, Plain X-Ray and CT Scan Interpretation: Normal sinus rhythm heart rate 86 beats per minute frequent PVCs left axis deviation right bundle-branch block no acute ST-T changes no acute ischemia Radiology Impression Discussion of test interpretation with radiology: I have reviewed the radiologist's reading. Radiologist Impression: CT/CT pelvis wo IV con IMPRESSION: No acute abnormalities identified. Status post total left hip arthroplasty. 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 Partial visualization of chronic spondylosis of the lower lumbar spine. Electronically signed by: Jamison Landaverde MD 09/12/2024 03:11 AM EDT RP Discharge Plan Discharge Clinical Impression: Acute pain of right hip, Fall Patient Disposition: Still a Patient Prescriptions: No Action carvedilol 25 mg tablet 25 mg PO BID Qty: 180 3RF omeprazole 20 mg capsule,delayed release(DR/EC) 20 mg PO DAILY spironolactone 25 mg tablet 25 mg PO DAILY albuterol sulfate 90 mcg/actuation HFA aerosol inhaler 1 puff PO Q4H PRN (Reason: Shortness Of Breath Or Wheezing) doxazosin 4 mg tablet 4 mg PO DAILY aspirin 81 mg tablet,delayed release (DR/EC) 81 mg PO DAILY fluoxetine 20 mg capsule 20 mg PO DAILY celecoxib 200 mg capsule 200 mg PO DAILY PRN (Reason: Pain) (DME) nebulizers Misc See Rx Instructions .Route Rx Instructions: As directed (DME) Oxygen Home Use Kit See Rx Instructions .Route Rx Instructions: As directed Praluent Pen 150 mg/mL pen injector 150 mg subcut Q2W Qty: 6 3RF losartan 50 mg tablet 75 mg PO .COMPLEX Qty: 145 8RF Rx Instructions: 75 mg orally; Take 25mg at noon 50mg at night ipratropium-albuterol 0.5 mg-3 mg(2.5 mg base)/3 mL solution for nebulization 3 ml inhalation QID 30 Days Qty: 360 11RF budesonide 0.25 mg/2 mL suspension for nebulization 0.25 mg inhalation BID 30 Days Qty: 120 11RF Print Language: Sinhala
--- NOTE | 2024-09-11 23:13 | ECG_ITS ---
Test Reason : FALL Blood Pressure : / mmHG Vent. Rate : 086 BPM Atrial Rate : 086 BPM P-R Int : 184 ms QRS Dur : 172 ms QT Int : 414 ms P-R-T Axes : 063 -88 021 degrees QTc Int : 495 ms Sinus rhythm Left axis deviation Right bundle branch block Abnormal ECG When compared with ECG of 05-JUL-2017 12:32, Right bundle branch block is now Present Criteria for Septal infarct are no longer Present Referred By: Onofre Serna Electronically Signed By:LARY AZUL MD
[2024-09-11] MEDS: Morphine Sulfate 4 MG/ML CARTRIDGE IVPUSH (23:41)
[2024-09-11] MEDS: ondansetron HCL 4 MG/2 ML VIAL IVPUSH (23:42)
[2024-09-12 01:28] LABS: MANUAL DIFF FLAG NO
[2024-09-12 01:29] LABS: Basophils Percent Auto 0.4 % (0-2); Eosinophils Absolute Auto 0.1 X10*3/uL (0.0-0.4); Eosinophils Percent Auto 0.6 % (0-4); Hematocrit 40.6 % (37.0-47.0); Hemoglobin 14.2 g/dl (12.0-16.0); Imm Gran Abs Auto 0.04 X10*3/uL (0.00-0.03); Imm Gran Pct Auto 0.4 % (0.0-0.4); Lymphocytes Absolute Auto 0.8 X10*3/uL (1.2-4.9); Lymphocytes Percent Auto 8.3 % (20-40); Mean Corpuscular Hemoglobin 30.5 pg (27.0-33.0); Mean Corpuscular Volume 87.1 fL (80.0-98.0); Mean Platelet Volume 9.1 fL (9.4-12.3); Monocytes Absolute Auto 0.6 X10*3/uL (0.1-1.2); Monocytes Percent Auto 6.3 % (2-11); Neutrophils Absolute Auto 8.2 x10*3/uL (2.0-8.3); Platelet Count 220 X10*3/uL (160-400); Red Blood Count 4.66 X10*6/uL (4.20-5.50); Red Cell Distribution Width 12.8 % (11.0-16.0); White Blood Count 9.7 X10*3/uL (4.8-10.8)
[2024-09-12 01:35] LABS: Prothrombin Time 11.3 SEC (10.9-12.4)
[2024-09-12 01:48] LABS: Alanine Aminotransferase 15 U/L (0-31); Alkaline Phosphatase 72 U/L (39-117); Anion Gap 15 (12-20); Aspartate Amino Transferase 19 U/L (5-31); Bilirubin Total 0.6 mg/dL (0.0-1.0); Blood Urea Nitrogen 19 mg/dL (9-16); Calcium 9.8 mg/dL (8.4-10.2); Carbon Dioxide 24 mmol/L (22-29); Chloride 97 mmol/L (96-108); Creatinine Clr Calc Pharmacy 45.4; Estimated Glomerular Filt Rate 50; Glucose Random 105 mg/dL (60-115); Potassium 4.7 mmol/L (3.3-5.1); Sodium 131 mmol/L (135-145); Total Protein 7.1 g/dL (6.5-8.0)
[2024-09-12] MEDS: Albuterol Sulfate 2.5 MG, Albuterol/Iprat 2.5/0.5MG 3 ML 3 ML INHALE (03:52)
[2024-09-12 03:54] VITALS: PULSE 97; RESP 18; O2SAT 94
[2024-09-12 04:00] VITALS: BP 180/83; PULSE 93; RESP 20; O2SAT 93
[2024-09-12] MEDS: oxyCODONE HCl Immed Release 5 MG TABLET PO (04:47)
[2024-09-12 07:16] VITALS: PULSE 68; RESP 14; O2SAT 96
[2024-09-12 07:36] VITALS: BP 169/86; PULSE 89; RESP 14; TEMP 36.3; O2SAT 93
[2024-09-12] MEDS: Albuterol/Iprat 2.5/0.5MG 3 ML AMPUL.NEB INHALE ×2 (07:54→12:28)
[2024-09-12 08:24] VITALS: BP 132/68; PULSE 90; O2SAT 90
[2024-09-12] MEDS: Spironolactone 25 MG TABLET PO (08:45)
[2024-09-12] MEDS: Doxazosin Mesylate 2 MG TABLET 4 MG PO (08:45)
[2024-09-12] MEDS: Omeprazole 20 MG CAPSULE.DR PO (08:45)
[2024-09-12] MEDS: FLUoxetine HCl 20 MG CAPSULE PO (08:45)
[2024-09-12] MEDS: Aspirin Enteric Coated 81 MG TABLET.DR PO (08:45)
[2024-09-12] MEDS: carvediloL 25 MG TABLET PO (08:45)
--- NOTE | 2024-09-12 09:30 | PHA.MEDREC ---
Addendum entered by Gianni Wong RPh 09/12/24 09:48: Reviewed by [facility] Original Note: Pharmacy Consult ? Medication Reconciliation Pharmacy has completed the medication reconciliation. Spoke with patient and daughter at bedside to confirm medications. They report she is on a strict schedule for her blood pressure medications to prevent hypotension. She takes carvedilol @0700, losartan 25 mg + spironolactone @1200, carvedilol @1900, and doxazosin + losartan 50 mg @2300. Patient reports she has not used celebrex in months and has it at home just in case (no claims for it). She last had her Praluent 2 days ago. Patient uses her nebulizer four times a day and alternates between budesonide and duoneb with no specific order (some days budesonide is first, sometimes duoneb is first). She uses it in the morning, at noon, in the afternoon, and at bedtime. She last took her medications yesterday but nothing after 5 PM.
[2024-09-12 10:47] LABS: COVID-19 Test Negative (Negative); IDNOW Serial# 152EDE1D
[2024-09-12 11:18] VITALS: BP 123/67; PULSE 81; RESP 14; TEMP 36.3; O2SAT 94
--- NOTE | 2024-09-12 11:44 | MHC.CM.ED ---
Received case management consult overnight. Patient came to the ER due to a fall. Physical therapy eval completed. Rehab is recommended. Patient has not been inpatient in any facility in the past 30 days. Referral made to all 3 acute rehab facilities. [facility] is only facility that is able to offer a bed. Met with patient, daughter Savannah and son. All accept bed at [facility]. Eri [facility] booked for 3pm. Med [facility] with chart. Patient, daughter, son, Karine LUNA and Karen HORTON aware. Continue to monitor for d/c needs.
[2024-09-12 12:07] LABS: Appearance Urine Clear; Color Urine Yellow; Glucose Urine UA Negative (Negative); Leukocyte Esterase Urine Small (1+) (Negative); Nitrite Urine Negative (Negative); Specific Gravity - Urine 1.015 (1.005-1.025); UMIC TRIGGER UACC YES; Urine Blood Negative (Negative); Urine Ketones Trace mg/dL (Negative); Urine Protein Negative (Neg-Trace)
[2024-09-12 12:10] LABS: Bacteria Urine 3+ (None Seen); Hyaline Casts Urine 0-2 /LPF (0-2); RBC Urine 0-2 /HPF (0-2); UACC Culture Trigger YES
[2024-09-12] MEDS: Losartan Potassium 25 MG TABLET PO (12:18)
[2024-09-12] MEDS: Acetaminophen 325 MG TABLET 650 MG PO (14:37)
--- NOTE | 2024-09-12 15:15 | PC.NURSE ---
tx to snf via joshua
== END 2024-09-12 15:15 | disposition skilled nursing facility (03) ==
PROVIDERS: Physician Assistant; Emergency Provider Internal Medicine; PCP Internal Medicine
DX: M25.551 Pain in right hip (principal); Z91.81 History of falling; Z11.52 Encounter for screening for COVID-19; J44.9 Chronic obstructive pulmonary disease, unspecified; Z99.81 Dependence on supplemental oxygen; Z79.899 Other long term (current) drug therapy; Z86.73 Personal history of transient ischemic attack (TIA), and cerebral infarction without residual deficits
CPT/HCPCS: 36415; 71045; 72192; 73502; 80053; 81001; 85025; 85610; 87086; 87088; 87186; 87635; 93005; 94640; 96374; 96375; 97162; 99285; J2270; J2405

== ENCOUNTER → 2024-09-11 23:13 | Outpatient (BNV) | payer MEDICARE, SELFPAY | PROVIDERS: Emergency Provider Internal Medicine; PCP Internal Medicine; Visit Provider Internal Medicine Cardiovascular Disease | DX: R94.31 Abnormal electrocardiogram [ECG] [EKG] (principal) | CPT/HCPCS: 93010 ==

== ENCOUNTER 2024-09-29 13:41 | Outpatient (REF) | payer MEDICARE, SELFPAY ==
[2024-09-29 14:23] LABS: Blood Urea Nitrogen 25 mg/dL (9-16); Estimated Glomerular Filt Rate 41; Sodium 125 mmol/L (135-145)
== END 2024-09-29 13:42 | disposition home or self-care (01) ==
LOC: HO.HVNA 13:41
PROVIDERS: Visit Provider Internal Medicine
DX: R79.9 Abnormal finding of blood chemistry, unspecified (principal); E87.1 Hypo-osmolality and hyponatremia
CPT/HCPCS: 36415; 82565; 84295; 84520

== ENCOUNTER 2024-10-07 10:56 | Outpatient (REF) | payer MEDICARE, SELFPAY ==
[2024-10-07 11:05] LABS: Appearance Urine Clear; Color Urine Dark Yellow; Glucose Urine UA Negative (Negative); Leukocyte Esterase Urine Small (1+) (Negative); Nitrite Urine Negative (Negative); PH 5.5 (5.0-9.0); UMIC TRIGGER UA YES; Urine Blood Negative (Negative); Urine Ketones Trace mg/dL (Negative); Urine Protein Trace mg/dL (Neg-Trace)
[2024-10-07 11:23] LABS: Bacteria Urine 4+ (None Seen); Hyaline Casts Urine 0-2 /LPF (0-2); RBC Urine 0-2 /HPF (0-2)
[2024-10-07 11:30] LABS: Sodium 132 mmol/L (135-145)
== END 2024-10-07 10:57 | disposition home or self-care (01) ==
LOC: HO.LNP 10:56
PROVIDERS: Visit Provider Internal Medicine
DX: I10 Essential (primary) hypertension (principal); N17.9 Acute kidney failure, unspecified; R82.79 Other abnormal findings on microbiological examination of urine
CPT/HCPCS: 81001; 81003; 84295; 87086; 87088; 87186

== ENCOUNTER 2024-10-14 15:36 | Outpatient (AMB) | payer MEDICARE, SELFPAY ==
--- NOTE | 2024-10-14 15:56 | HO.NEPHOV ---
Vital Signs 10/14/24 15:59 BP 190/80 H Blood Pressure Location Rt brachial Position Sitting Pulse 70 Pulse Source Pulse Oximeter Pulse Oximetry (%) 94 Oxygen Delivery Method Simple Mask Intake Visit Reasons: Hypertension fu-Conf Tax Intern Required: No Accompanied by: Daughter Allergies atorvastatin [Lipitor] Allergy (Severe, Verified 10/14/24 15:58) only oral hydralazine [HYDRALAZINE] Allergy (Severe, Verified 10/14/24 15:58) VOMITING, SYNCOPE labetalol [LABETALOL] Allergy (Unknown, Verified 10/14/24 15:58) SYNCOPE lisinopril [LISINOPRIL] Allergy (Unknown, Verified 10/14/24 15:58) HAIR FALLS OUT metoprolol [METOPROLOL] Allergy (Unknown, Verified 10/14/24 15:58) HAIR FALLS OUT penicillin V Allergy (Unknown, Verified 10/14/24 15:58) yeast infections HPI Comments Details: Bhavna was seen in follow up of her chronic kidney disease and hypertension. She had been accompanied by her daughter. She has been having significant progressive weight loss. 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 Her BP is currently not at goal at home. She has been having edema. She is compliant with her medications. She has H/O CVA as well as carotid stenosis. She has no H/O chest pain, dizziness, PND, edema or orthopnea. She also follows up with Dr Isaac Freitas Gerontological Nurse Practitioner. Her renal function remains at baseline. She feels her COPD has been progressively getting worse [facility] Medical History Cough History of sepsis (~01/2017) Hyperlipidemia Hypertension Former smoker, stopped smoking in distant past CAD (coronary artery disease) Osteoporosis (~2018) Stenosis of middle cerebral artery History of TIAs History of CVA (cerebrovascular accident) (~07/2017) Dyspnea Atelectasis Chronic hypoxemic respiratory failure COPD (chronic obstructive pulmonary disease) Surgical History History of heart artery stent (~2011) History of hand surgery (~2004) History of left knee replacement (~2014) History of arthroscopy of right knee (~2003) History of carpal tunnel surgery of left wrist (~1998) Family History Brother CAD (coronary artery disease) Father CAD (coronary artery disease) Myocardial infarction Mother Leukemia Social History Alcohol intake: current Alcohol type: wine and hard liquor Patient Tobacco Use Status: Former Tobacco user Tobacco use type: Cigarette Years Smoked: (1ppd x 40yrs, quit 2001) Review of Systems Const All systems reviewed & are unremarkable except as noted in HPI and below Physical Exam Vital Signs: Last Vital Signs Pulse 70 10/14/24 15:59 BP 190/80 H 10/14/24 15:59 Pulse Ox 94 10/14/24 15:59 Oxygen Delivery Method Simple Mask 10/14/24 15:59 Const General: comfortable and no acute distress Orientation/consciousness: patient oriented x3 HEENT Head: Yes normocephalic Mouth: Normal oral and palatal mucosa present Eyes EOM: EOMs intact bilaterally Neck Neck: Yes supple Resp Auscultation: clear to auscultation bilaterally Cardio Jugular venous distension: no JVD Rate: regular rate GI Palpation (GI): Soft to palpation Auscultation: normal bowel sounds General: Yes no CVA tenderness Back/Spine/Pelvis Back: no CVA tenderness Skin General skin exam: no rashes or lesions noted Neuro General: patient oriented x3 and moves all extremities Extrem General: Yes no pedal edema Results Reviewed Nephrology Results: Hgb 14.2 g/dl (12.0-16.0) 09/12/24 WBC 9.7 X10*3/uL (4.8-10.8) 09/12/24 Plt Count 220 X10*3/uL (160-400) 09/12/24 Sodium 132 mmol/L (135-145) L 10/16/24 Potassium 4.6 mmol/L (3.3-5.1) 10/16/24 Chloride 93 mmol/L (96-108) L 10/16/24 Carbon Dioxide 29 mmol/L (22-29) 10/16/24 BUN 18 mg/dL (9-16) H 10/16/24 Creatinine 0.91 mg/dL (0.5-1.4) 10/16/24 Calcium 9.8 mg/dL (8.4-10.2) 09/12/24 Urine Protein Trace mg/dL (Neg-Trace) 10/07/24 Assessment & Plan Assessment & Plan (1) CKD (chronic kidney disease) stage 3, GFR 30-59 ml/min: Code(s): N18.30 - Chronic kidney disease, stage 3 unspecified Category: Medical Qualifiers: Chronic kidney disease stage 3 subtype: stage 3a (GFR 45-59) Qualified Code(s): N18.31 - Chronic kidney disease, stage 3a (2) Hypertension: Code(s): I10 - Essential (primary) hypertension Category: Medical Qualifiers: Hypertension type: renovascular hypertension Qualified Code(s): I15.0 - Renovascular hypertension Plan CKD 3 due to jeannette vascular disease and ischemic nephropathy ( Has CAD, carotid stenosis, intra cerebral MCA stenosis, MAVIS) BP not at goal; Volume status sub optimal; Ordered lasix 40 mg daily Tolerating ARB. Renal function remains at baseline Low sodium diet; Good hydration; No NSAID's Increased Doxazosin to 8 mg daily Shall adjust her BP medications with evolving data All her and her daughters questions answered; F/U given Medications: New furosemide (Lasix) 40 mg PO DAILY 10 tabs 0RF Coding Level of Care Code Est Pt Level 4 (86381) Diagnoses Stage 3a chronic kidney disease N18.31 Chronic kidney disease stage 3 subtype: stage 3a (GFR 45-59) Renovascular hypertension I15.0 Hypertension type: renovascular hypertension
[2024-10-14 15:59] VITALS: BP 190/80; PULSE 70; O2SAT 94
== END 2024-10-14 16:28 | disposition home or self-care (01) ==
PROVIDERS: PCP Internal Medicine; Visit Provider Internal Medicine Nephrology
DX: I12.9 Hypertensive chronic kidney disease with stage 1 through stage 4 chronic kidney disease, or unspecified chronic kidney disease (principal); N18.31 Chronic kidney disease, stage 3a
CPT/HCPCS: 99214

== ENCOUNTER → 2024-10-14 15:36 | Outpatient (BNVA) | payer MEDICARE, SELFPAY | PROVIDERS: PCP Internal Medicine; Visit Provider Internal Medicine Nephrology | DX: I15.0 Renovascular hypertension (principal); N18.31 Chronic kidney disease, stage 3a | CPT/HCPCS: 99212 ==

== ENCOUNTER 2024-10-16 15:30 | Outpatient (REF) | payer MEDICARE, SELFPAY ==
[2024-10-16 15:47] LABS: Anion Gap 15 (12-20); Blood Urea Nitrogen 18 mg/dL (9-16); Carbon Dioxide 29 mmol/L (22-29); Chloride 93 mmol/L (96-108); Estimated Glomerular Filt Rate 59; Potassium 4.6 mmol/L (3.3-5.1); Sodium 132 mmol/L (135-145)
== END 2024-10-16 15:31 | disposition home or self-care (01) ==
LOC: HO.LNP 15:30
PROVIDERS: Visit Provider Internal Medicine
DX: E87.1 Hypo-osmolality and hyponatremia (principal)
CPT/HCPCS: 80051; 82565; 84520

== ENCOUNTER 2024-10-27 14:48 | Outpatient (REF) | payer MEDICARE, SELFPAY ==
[2024-10-27 15:33] LABS: Sodium 126 mmol/L (135-145)
== END 2024-10-27 14:49 | disposition home or self-care (01) ==
LOC: HO.HVNA 14:48
PROVIDERS: Visit Provider Internal Medicine
DX: N39.0 Urinary tract infection, site not specified (principal); E87.1 Hypo-osmolality and hyponatremia
CPT/HCPCS: 36415; 84295

== ENCOUNTER 2024-10-28 11:30 | Outpatient (REF) | payer MEDICARE, SELFPAY ==
[2024-10-28 11:37] LABS: Appearance Urine Clear; Color Urine Yellow; Glucose Urine UA Negative (Negative); Leukocyte Esterase Urine Negative (Negative); Nitrite Urine Negative (Negative); PH 5.5 (5.0-9.0); Urine Blood Negative (Negative); Urine Ketones Negative (Negative); Urine Protein Negative (Neg-Trace)
[2024-10-28 11:39] LABS: Bacteria Urine None Seen (None Seen); Hyaline Casts Urine 0-2 /LPF (0-2); RBC Urine 0-2 /HPF (0-2); WBC Urine 0-5 /HPF (0-5)
== END 2024-10-28 11:31 | disposition home or self-care (01) ==
LOC: HO.HVNA 11:30
PROVIDERS: Visit Provider Internal Medicine
DX: N39.0 Urinary tract infection, site not specified (principal); E87.1 Hypo-osmolality and hyponatremia
CPT/HCPCS: 81001; 87086

== ENCOUNTER 2024-11-05 13:24 | Outpatient (REF) | payer MEDICARE, SELFPAY ==
[2024-11-05 13:53] LABS: Sodium 133 mmol/L (135-145)
--- OUTSIDE RECORDS SUMMARY | 2024-11-11 02:24 | XMS_ITS ---
Author Organization Jason Orantes MD Address [address] [place] [phone] Care Team Providers Care Law Office Receptionist Name Role Cortney LambertoFerminn Primary Care Provider REASON FOR VISIT 3 week sodium Encounters Encounter Location Date Provider Diagnosis Jason Orantes MD [address] [place] [phone] 10/26/2024 Jason Orantes Hyponatremia E87.1 ASSESSMENTS Encounter Date Diagnosis Assessment Notes Treatment Notes Treatment Clinical Notes 10/26/2024 Hyponatremia (ICD-10 - E87.1) PLAN OF TREATMENT Pending Test Test Name Order Date Sodium 10/26/2024 Next Appt Details Provider Name:Jason leung, 11/17/2024 07:15:00 AM, [address], [address], [place], [place], [id number],
--- OUTSIDE RECORDS SUMMARY | 2024-11-11 02:24 | XMS_ITS ---
Author Organization Jason Orantes MD Address [address] [place] [phone] Care Team Providers Care Commercial Loan Underwriter Name Role Cortney LambertoFerminn Primary Care Provider [phone] RESULTS Component Value Reference Range Notes Sodium Reviewed date:11/05/2024 03:11:48 PM Interpretation: Performing Lab:[facility], [address] [place] [id number] Notes/Report: Sodium 133 135-145 mmol/L REASON FOR VISIT NA order Encounters Encounter Location Date Provider Diagnosis Jason Orantes MD [address] [place] [phone] 11/02/2024 Jason Orantes Hyponatremia E87.1 ASSESSMENTS Encounter Date Diagnosis Assessment Notes Treatment Notes Treatment Clinical Notes 11/02/2024 Hyponatremia (ICD-10 - E87.1) PLAN OF TREATMENT Next Appt Details Provider Name:Jason leung, 11/17/2024 07:15:00 AM, [address], [address], [place], [place], [phone],
--- OUTSIDE RECORDS SUMMARY | 2024-11-11 02:24 | XMS_ITS ---
Author Organization Jason Orantes MD Address [address] [place], [place] [id number] Care Team Providers Care Strategic Marketing Associate Name Role Phone LambertoFerminn Primary Care Provider RESULTS Component Value Reference Range Notes Sodium Reviewed date:10/29/2024 12:01:43 PM Interpretation: Performing Lab:[facility], [address] [place] [id number] Notes/Report: Sodium 126 135-145 mmol/L Urine Culture Reviewed date:10/29/2024 12:00:50 PM Interpretation: Performing Lab:[address] [id number] Notes/Report: Urine Culture Report Result Urine Culture 50,000 to 100,000 cfu/ml Urine Culture Mixed bacterial patti a characteristic of Urine Culture urogenital contamination. REASON FOR VISIT [facility] Lab Order Encounters Encounter Location Date Provider Diagnosis Jason Orantes MD [address] [place], [place] [id number] 10/26/2024 Jason Orantes Urinary tract infection without hematuria, site unspecified N39.0 and Hyponatremia E87.1 ASSESSMENTS Encounter Date Diagnosis Assessment Notes Treatment Notes Treatment Clinical Notes 10/26/2024 Urinary tract infection without hematuria, site unspecified (ICD-10 - N39.0) 10/26/2024 Hyponatremia (ICD-10 - E87.1) PLAN OF TREATMENT Pending Test Test Name Order Date Urine Microscopic 10/26/2024 Next Appt Details Provider Name:Jason Blakely ier, 11/17/2024 07:15:00 AM, [address] [place] [address], [address], [place], [place], [phone],
--- OUTSIDE RECORDS SUMMARY | 2024-11-11 02:25 | XMS_ITS | Patient Health Record ---
Author Organization Jason Orantes MD Address [address] [place], [place] [id number] Care Team Providers Care Cigar Head Stringer Name Role Phone LambertoFerminn Primary Care Provider [phone] ALLERGIES Allergen (clinical drug ingredient) Drug/Non Drug Allergy documented on EMR Reaction Allergy Type Onset Date Status Penicillin G Benzathine Vaginal yeast infection Drug Allergy Active RESULTS Component Value Reference Range Notes XR chest 2V Reviewed date:07/19/2024 06:29:57 PM Interpretation: Performing Lab: Notes/Report: [facility] [address] [place] [address] XRay Report Signed Patient: Bhavna Bob MR#: [id number] : 1940 Acct:[id number] Age/Sex: 84 / F ADM Date: 06/29/24 Loc: HO.XRAY Attending Dr: Rajeev Herrmann MD Ordering Physician: Rajeev Herrmann MD Date of Service: 06/29/24 Procedure(s): XR chest 2V Accession Number(s): [id number] cc: Jason Orantes MD; Rajeev Herrmann MD EXAMINATION: XR CHEST CLINICAL INFORMATION: Centrilobular emphysema. COMPARISON: Chest radiographs dated 02/22/2023; CTA chest dated 11/04/2014. TECHNIQUE: Frontal and lateral views of the chest were obtained. FINDINGS: The heart, great vessels, pulmonary vasculature and mediastinum are stable. There is atherosclerotic calcification and tortuosity of the thoracic aorta. There is hyperinflation. There is mild vertical linear scar/subsegmental atelectasis at the right base, stable from prior examinations including 08/03/2021. No pleural effusion or pneumothorax is seen. There is no acute osseous abnormality. XR/XR chest 2V IMPRESSION: There is mild chronic scar/subsegmental atelectasis at the right base. No focal infiltrate or congestive heart failure is seen. Dictated By: Uvaldo Pang MD Signed By: <Electronically signed by Uvaldo Pang MD in OV> 07/17/24 1934 DD/ 1450 TD/TT: Studio Operator: MARY CARMEN Urine Culture Reviewed date:09/14/2024 11:00:24 AM Interpretation: Performing Lab:[address] [address] Notes/Report: O:ESCCOL Escherichia coli Urine Culture Quant Urine Culture > 100,000 cfu/mL O:CORSPE Corynebacterium species Urine Culture Quant Urine Culture 10,000 to 50,000 cfu/mL Urine Culture [facility] N/A Urine Culture Susceptibility not routinely performed on this isolate. Ampicillin <=2 Cefazolin <=4 Ceftriaxone <=0.25 Ciprofloxacin <=0.25 Gentamicin <=1 Nitrofurantoin <=16 Trimethoprim/Sulfamethoxa zole <=20 COVID-19 ID NOW (Garcia) Reviewed date:09/13/2024 09:20:12 AM Interpretation: Performing Lab:[address] [address] Notes/Report: IDNOW Serial# [id number] COVID-19 Test Negative Negative COVID-19 Note See Note Results are for the identification of SARS-CoV2 RNA. The SARS-CoV2 RNA is generally detectable in respiratory samples during the acute phase of infection. Positive results are indicative of the presence of SARS-CoV-2 RNA; clinical correlation with patient history and other diagnostic information is necessary to determine patient infection status. Positive results do not rule out bacterial infection or co-infection with other viruses. Testing facilities within the [facility] and its territories are required to report all positive results to the appropriate public health authorities. Negative results should be treated as presumptive and, if inconsistent with clinical signs and symptoms or necessary for patient management, should be tested with different authorized or cleared molecular tests. Negative results do not preclude SARS-CoV2 RNA infection and should not be used as the sole basis for patient management decisions. Negative results should be considered in the context of a patient's recent exposures, history and the presence of clinical signs and symptoms consistent with COVID-19. This test has been authorized by the FDA under an Emergency Use Authorization (EUA) for use by authorized laboratories. Testing performed on the [place] ID NOW utilizing NAAT. UA ClnCatch+Micro w/rflx Cul t Reviewed date:09/13/2024 09:19:36 AM Interpretation: Performing Lab:[facility], [address] [place] [address] Notes/Report: [id number] Urine, Clean Catch Color Urine Yellow Appearance Urine Clear PH 5.0 5.0-9.0 Glucose Urine UA Negative Negative mg/dL Urine Blood Negative Negative Specific [place] - Urine 1.015 1.005-1.025 Urine Protein Negative Neg-Trace mg/dL Urine Ketones Trace Negative mg/dL Nitrite Urine Negative Negative Leukocyte Esterase Urine Small (1+) Negative RBC Urine 0-2 0-2 /HPF WBC Urine 11-20 0-5 /HPF Squamous Epithelial Cell Urine 11-20 0-2 /HPF Bacteria Urine 3+ None Seen Hyaline Casts Urine 0-2 0-2 /LPF CT pelvis wo con Reviewed date:09/14/2024 10:59:56 AM Interpretation: Performing Lab: Notes/Report: [address] [address] [address] Scan Report Signed Patient: Bhavna Bob MR#: [id number] : 1940 Acct:[id number] Age/Sex: 84 / F ADM Date: 09/11/24 Loc: HO.ED Attending Dr: Ordering Physician: Onofre Serna MD Date of Service: 09/12/24 Procedure(s): CT pelvis wo IV con Accession Number(s): [id number] cc: Jason Orantes MD; Onofre Serna MD EXAMINATION: CT PELVIS WITHOUT CONTRAST CLINICAL INFORMATION: Occult right hip fracture COMPARISON: Right hip radiograph 09/12/2024. TECHNIQUE: Helical scanning was performed with submillimeter collimation through the pelvis. Sagittal and coronal multiplanar 2-D reconstructions were obtained. This CT examination was performed using dose optimization techniques as appropriate, variously including the following: *Automated exposure control *Adjustment of mA and/or kV according to patient size (this includes techniques or standardized protocols for targeted exams where dose is matched to indication/reason for exam; i.e. extremities or head) *Use of iterative reconstruction technique DLP: 396 mGy-cm FINDINGS: The visualized sacrum appears intact. No compression deformities noted in the visualized lower lumbar vertebral bodies. No fractures of the pelvis noted. No diastases of the sacroiliac joints or symphysis pubis. Intact posterior noriega of the acetabulum. The visualized femurs are normal in appearance. Within the abdomen and pelvis no free intraperitoneal fluid collections. Dense aortoiliac calcific atherosclerosis. No soft tissue inflammatory changes noted in the region of the hips. CT/CT pelvis wo IV con IMPRESSION: No acute abnormalities identified. Intact right femur and right hip. Dense aortoiliac calcific atherosclerosis. Electronically signed by: Jamison Landaverde MD 09/12/2024 03:17 AM EDT Dictated By: Jamison Landaverde MD Signed By: <Electronically signed by Jamison Landaverde MD in OV> 09/12/24316 DD/ 020 TD/TT: 09/12/24 021 Studio Operator: LELAND XR hip RT w PEL1V Reviewed date:09/14/2024 10:55:28 AM Interpretation: Performing Lab: Notes/Report: [address] [address] XRay Report Signed Patient: Bhavna Bob MR#: [id number] : 1940 Acct:[id number] Age/Sex: 84 / F ADM Date: 09/11/24 Loc: HO.ED Attending Dr: Ordering Physician: Onofre Serna MD Date of Service: 09/12/24 Procedure(s): XR hip RT w PEL1V Accession Number(s): [id number] cc: Jason Orantes MD; Onofre Serna MD EXAMINATION: XR CHEST 1 VIEW, XR HIP 1 VIEW RIGHT WITH PELVIS CLINICAL INFORMATION: fall COMPARISON: None. TECHNIQUE: AP pelvis and 2 view series of the right hip; AP chest FINDINGS: Pelvis and right hip: Visualized sacrum appears intact. Partial visualization is made of lower lumbar facet and endplate hypertrophic changes. Arthropathic changes of the hips noted. The visualized right femur appears intact. The posterior wall the right acetabulum appears intact. Moderate scattered atherosclerotic vascular calcifications are noted. CHEST: Normal appearance of the cardiomediastinal structures. Moderate aortic calcific atherosclerosis. No effusions or pneumothoraces. Normal pattern of pulmonary vasculature. No focal pulmonary consolidation. Calcific plaques in the region of the left carotid bulb. Punctate dystrophic calcification along the distal aspect of the left supraspinatus tendon. XR/XR hip RT w PEL1V IMPRESSION: AP pelvis and right hip: No acute abnormalities. Intact right hip. CHEST: No acute cardiopulmonary abnormalities. Partial visualization of left carotid bulb calcific atherosclerotic plaques. 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 Electronically signed by: Jamison Landaverde MD 09/12/2024 01:52 AM EDT Dictated By: Jamison Landaverde MD Signed By: <Electronically signed by Jamison Landaverde MD in OV> 09/12/24 0152 DD/ 0035 TD/TT: 09/12/24 0040 Studio Operator: LELAND XR chest 1V Reviewed date:09/14/2024 11:00:53 AM Interpretation: Performing Lab: Notes/Report: [address] [address] XRay Report Signed Patient: Bhavna Bob MR#: [id number] : 1940 Acct:[id number] Age/Sex: 84 / F ADM Date: 09/11/24 Loc: HO.ED Attending Dr: Ordering Physician: Onofre Serna MD Date of Service: 09/12/24 Procedure(s): XR chest 1V Accession Number(s): [id number] cc: Jason Orantes MD; Onofre Serna MD EXAMINATION: XR CHEST 1 VIEW, XR HIP 1 VIEW RIGHT WITH PELVIS CLINICAL INFORMATION: fall COMPARISON: None. TECHNIQUE: AP pelvis and 2 view series of the right hip; AP chest FINDINGS: Pelvis and right hip: Visualized sacrum appears intact. Partial visualization is made of lower lumbar facet and endplate hypertrophic changes. Arthropathic changes of the hips noted. The visualized right femur appears intact. The posterior wall the right acetabulum appears intact. Moderate scattered atherosclerotic vascular calcifications are noted. CHEST: Normal appearance of the cardiomediastinal structures. Moderate aortic calcific atherosclerosis. No effusions or pneumothoraces. Normal pattern of pulmonary vasculature. No focal pulmonary consolidation. Calcific plaques in the region of the left carotid bulb. Punctate dystrophic calcification along the distal aspect of the left supraspinatus tendon. XR/XR chest 1V IMPRESSION: AP pelvis and right hip: No acute abnormalities. Intact right hip. CHEST: No acute cardiopulmonary abnormalities. Partial visualization of left carotid bulb calcific atherosclerotic plaques. 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 Electronically signed by: Jamison Landaverde MD 09/12/2024 01:52 AM EDT Dictated By: Jamison Landaverde MD Signed By: <Electronically signed by Jamison Landaverde MD in OV> 09/12/24 0152 DD/ 0035 TD/TT: 09/12/24 0040 Studio Operator: LELAND Sodium Reviewed date:10/01/2024 11:44:31 AM Interpretation: Performing Lab:[address] [address] Notes/Report: Sodium 125 135-145 mmol/L Blood Urea Nitrogen Reviewed date:09/29/2024 04:23:48 PM Interpretation: Performing Lab:[place] [address] [address] Notes/Report: Blood Urea Nitrogen 25 9-16 mg/dL Creatinine Reviewed date:09/29/2024 04:22:39 PM Interpretation: Performing Lab:[facility], [address] [place] [phone] Notes/Report: Creatinine 1.26 0.5-1.4 mg/dL Estimated Glomerular Filt Rate 41 NOTE: For -Irish individuals, multiply the result by 1.210. Chronic Kidney Disease: Estimated GFR < 60 mL/min/1.73m2 Severe Kidney Disease: Estimated GFR < 15 mL/min/1.73m2 Hold Green Gel Reviewed date:09/29/2024 04:24:05 PM Interpretation: Performing Lab:[address] [address] Notes/Report: Hold Green Gel See Note Specimen held untested for 24 hours; Call to request Chemistry testing. Sodium Reviewed date:10/07/2024 12:14:33 PM Interpretation: Performing Lab:[facility], [address] [place] [phone] Notes/Report: Sodium 132 135-145 mmol/L Urinalysis and Microscopic Reviewed date:10/07/2024 12:14:23 PM Interpretation: Performing Lab:[address] [address] Notes/Report: Color Urine Dark Yellow Appearance Urine Clear PH 5.5 5.0-9.0 Glucose Urine UA Negative Negative mg/dL Urine Blood Negative Negative Specific [place] - Urine 1.020 1.005-1.025 Urine Protein Trace Neg-Trace mg/dL Urine Ketones Trace Negative mg/dL Nitrite Urine Negative Negative Leukocyte Esterase Urine Small (1+) Negative RBC Urine 0-2 0-2 /HPF WBC Urine 6-10 0-5 /HPF Squamous Epithelial Cell Urine 6-10 0-2 /HPF Bacteria Urine 4+ None Seen Hyaline Casts Urine 0-2 0-2 /LPF Urine Culture Reviewed date:10/10/2024 05:29:18 PM Interpretation: Performing Lab:[address] [address] Notes/Report: O:ESCCOL Escherichia coli Urine Culture Quant Urine Culture > 100,000 cfu/mL O:CORSPE Corynebacterium species Urine Culture Quant Urine Culture 50,000 to 100,000 cfu/mL Urine Culture Susc N/A Urine Culture Susceptibility not routinely performed on this isolate. Ampicillin 8 Cefazolin <=1 Cefepime <=0.12 Ceftriaxone <=0.25 Ciprofloxacin <=0.06 Gentamicin <=1 Nitrofurantoin <=16 Trimethoprim/Sulfamethoxa zole <=20 Electrolytes Reviewed date:10/17/2024 07:31:52 PM Interpretation: Performing Lab:[facility], [address] [place] [phone] Notes/Report: Sodium 132 135-145 mmol/L Potassium 4.6 3.3-5.1 mmol/L Chloride 93 96-108 mmol/L Carbon Dioxide 29 22-29 mmol/L Anion Gap 15 12-20 Blood Urea Nitrogen Reviewed date:10/17/2024 07:32:02 PM Interpretation: Performing Lab:[facility], [address] [place] [address] Notes/Report: Blood Urea Nitrogen 18 9-16 mg/dL Creatinine Reviewed date:10/17/2024 07:31:42 PM Interpretation: Performing Lab:[facility], [address] [place] [phone] Notes/Report: Creatinine 0.91 0.5-1.4 mg/dL Estimated Glomerular Filt Rate 59 Chronic Kidney Disease: Estimated GFR < 60 mL/min/1.73m2 Severe Kidney Disease: Estimated GFR < 15 mL/min/1.73m2 Sodium Reviewed date:10/29/2024 12:01:43 PM Interpretation: Performing Lab:[address] [address] Notes/Report: Sodium 126 135-145 mmol/L Urine Culture Reviewed date:10/29/2024 12:00:50 PM Interpretation: Performing Lab:[address] [address] Notes/Report: Urine Culture Report Result Urine Culture 50,000 to 100,000 cfu/ml Urine Culture Mixed bacterial patti a characteristic of Urine Culture urogenital contamination. Urinalysis and Microscopic Reviewed date:10/29/2024 12:00:34 PM Interpretation: Performing Lab:[facility], [address] [place] [phone] Notes/Report: Color Urine Yellow Appearance Urine Clear PH 5.5 5.0-9.0 Glucose Urine UA Negative Negative mg/dL Urine Blood Negative Negative Specific [place] - Urine 1.010 1.005-1.025 Urine Protein Negative Neg-Trace mg/dL Urine Ketones Negative Negative mg/dL Nitrite Urine Negative Negative Leukocyte Esterase Urine Negative Negative RBC Urine 0-2 0-2 /HPF WBC Urine 0-5 0-5 /HPF Squamous Epithelial Cell Urine 3-5 0-2 /HPF Bacteria Urine None Seen None Seen Hyaline Casts Urine 0-2 0-2 /LPF Sodium Reviewed date:11/05/2024 03:11:48 PM Interpretation: Performing Lab:[facility], [address] [place] [phone] Notes/Report: Sodium 133 135-145 mmol/L REASON FOR REFERRAL No Information MEDICATIONS Medication SIG (Take, Route, Frequency, Duration) Notes Start Date End Date Status Lasix 20 MG 1 tablet Orally Once a day for 30 day(s) Active Fluticasone Propionate 50 MCG/ACT 1 spray in each nostril Nasally Once a day Not-Taking Ventolin HFA 108 (90 Base) MCG/ACT 1 puff as needed Inhalation every 4 hrs 03/07/2021 Active Budesonide 0.25 MG/2ML 2 mL Inhalation T wice a day Active Lasix 20 MG 1 tablet Orally Once a day for 30 day(s) Active Spironolactone 25 MG TAKE 1 TABLET BY MO UT DAILY for 90 Active Carvedilol 25 MG 1 tablet with food Orally Twice a day Active Doxazosin Mesylate 4 MG TAKE 1 TABLET BY MOUTH ONCE DAILY AT BEDTIME Active Praluent 150 MG/ML as directed Subcutaneous once every 2 weeks for 90 days Active Cephalexin 500 MG 1 capsule Orally twi ce a day for 5 days Active Losartan Potassium 50 MG TAKE 1 TABLET B Y MOUTH TWICE DAILY Active Celecoxib 200 MG TAKE 1 CAPSULE BY MO UTH WITH FOOD ONCE DAILY for 90 Not-Taking Budesonide 0.25 MG/2ML 2 mL Inhalation T wice a day Active Omeprazole 20 MG TAKE 1 CAPSULE BY MO UT DAILY for 90 Active Ipratropium-Albuterol 0.5-2.5 (3) MG/3ML INHALE 1 VIAL VIA NEBULIZER EVERY 6 HOURS NEEDED FOR 30 DAYS for 30 Active Loratadine 10 MG 1 tablet Orally Once a day Active Cephalexin 500 MG 1 capsule Orally twi ce a day for 5 days 10/10/2024 Active Aspirin 81 81 MG 1 tablet Orally Once a day Active FLUoxetine HCl 20 MG TAKE 1 CAPSULE BY M OUT ONCE DAILY for 90 Active IMMUNIZATIONS Vaccine Route Administration Date Status Comme nts Fluarix Quadrivalent IM Intramuscular 09/22/2018 Administe red PPSV23 (Pnemovax) Unknown 12/23/2014 Administered Influenza High Dose IM Intramuscular 09/25/2019 Administer ed Prevnar 13 IM Intramuscular 11/05/2019 Administered Influenza High Dose IM Intramuscular 08/11/2020 Administer ed Covid Vaccine Unknown 01/02/2021 Administered Covid Vaccine Unknown 01/23/2021 Administered Pfizer Influenza High Dose IM Intramuscular 08/25/2021 Administer ed SARS-COV-2 Moderna Unknown 11/20/2021 Administered Influenza High Dose IM Intramuscular 09/25/2022 Administer ed Influenza High Dose IM Intramuscular 09/23/2023 Administer ed Influenza High Dose IM Intramuscular 10/16/2024 Administer ed SOCIAL HISTORY Tobacco Use: Social History Observation Description Date Details (start date - stop date) Former Smoker NA - NA Sex Assigned At : Social History Observation Description Sex Assigned At Unknown Tobacco Use/Smoking Question Answer Notes Patient is a former smoker How long has it been since y ou last smoked? > 10 years Additional Findings: Tobacco Non-User Fo rmer smoker, currently using no form of tobacco Alcohol Screen Question Answer Notes Did you have a drink contain ing alcohol in the past year? Yes How often did you have a dri nk containing alcohol in the past year? 4 or more times a week (4 points) How many drinks did you have on a typical day when you were drinking in the past year? 1 or 2 drinks (0 point) How often did you have 6 or more drinks on one occasion in the past year? Never (0 point) Points 4 Interpretation Positive PROBLEMS Problem Type ICD Code Onset Dates Problem Status W/U Status Risk SNOMED Code Notes Problem Age-related osteoporosis without current pathological fracture (M81.0) Active confirmed 38489979 Problem TIA (transient ischemic attack) (G45.9) Active confirmed Transient ische ady attack (348211947) Problem Vitamin D deficiency (E55.9) Active confirmed 42380989 Problem Panlobular emphysema (J43.1) Active confirmed 7667272 Problem Sciatica, right side (M54.31) Active confirmed 38156643361786959 Problem Essential hypertensi on (I10) Active confirmed 11683525 Problem History of TIA (transient ischemic attack) (Z86.73) Active confirmed 230026076 Problem History of coronary artery stent placement (Z95.5) Active confirmed 578300668 Problem Hot flashes (R23.2) Active confirmed 23 9761558 Problem Hypercholesterolemia (E78.00) Active confirmed 59767660 Problem Age-related incipien t cataract of both eyes (H25.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) Active confirmed 082974970 Problem Stage 3 chronic kidn ey disease, unspecified whether stage 3a or 3b CKD (N18.30) Active confirmed 654972779 VITAL SIGNS Blood pressure diastolic 60 mm Hg 10/16/2024 Height 66 in 10/16/2024 Blood pressure systolic 132 mm Hg 10/16/2024 Weight 133 lbs 09/28/2024 eight at home i s 133 BP BMI 21.46 kg/m2 09/28/2024 eight at home i s 133 BP Encounters Encounter Location Date Provider Diagnosis Jason Orantes MD [address] [place] [id number] 10/16/2024 Jason Orantes Hyponatremia E87.1 ; Stage 3 chronic kidney disease, unspecified whether stage 3a or 3b CKD N18.30 ; Essential hypertension I10 ; Lower extremity edema R60.0 and Encounter for immunization Z23 Jason Orantes MD [address] [place] [address] [id number] 10/09/2024 Jason Orantes Essential hypertensi on I10 ; Hypercholesterolemia E78.00 and Vitamin D deficiency E55.9 Jason Orantes MD [address] [place] [address] [id number] 10/15/2024 Jason Orantes Hyponatremia E87.1 Jason Orantes MD [address] [place] [address] [id number] 10/06/2024 Jason Orantes UTI (urinary tract infection) N39.0 and Hyponatremia E87.1 Jason Orantes MD [address] [place] [address] [id number] 10/26/2024 Jason Orantes Hyponatremia E87.1 Jason Orantes MD [address] [place] [address] [id number] 04/09/2024 Jason Orantes MD [address] [place] [address] [id number] 06/09/2024 Jason Orantes MD [address] [place] [address] [id number] 09/03/2024 Jason Orantes MD [address] [place] [address] [id number] 09/15/2024 Jason Orantes MD [address] [place] [address] [id number] 09/25/2024 Jason Orantes MD [address] [place] [address] [id number] 10/05/2024 Jason Orantes MD [address] [place] [address] [id number] 10/05/2024 Jason Orantes MD [address] [place] [address] [id number] 10/09/2024 Jason Orantes MD [address] [place] [address] [id number] 10/10/2024 Jason Orantes MD [address] [place] [address] [id number] 10/10/2024 Jason Orantes MD [address] [place] [address] [id number] 10/11/2024 Jason Orantes MD [address] [place] [address] [id number] 10/22/2024 Jason Orantes MD [address] [place] [address] [id number] 10/26/2024 Jason Orantes Urinary tract infect ion without hematuria, site unspecified N39.0 and Hyponatremia E87.1 Jason Orantes MD [address] [place] [address] [id number] 11/02/2024 Jason Orantes Hyponatremia E87.1 Jason Orantes MD [address] [place], [place] [id number] 09/28/2024 Jason Orantes Elevated BUN R79.9 ; Right hip pain M25.551 ; Hyponatremia E87.1 ; Orthostatic hypotension I95.1 and Fall, subsequent encounter W19.XXXD ASSESSMENTS Encounter Date Diagnosis Assessment Notes Treatment Notes Treatment Clinical Notes 10/16/2024 Hyponatremia (ICD-10 - E87.1) pending labs 10/16/2024 Stage 3 chronic kidn ey disease, unspecified whether stage 3a or 3b CKD (ICD-10 - N18.30) followed by nephrology 10/09/2024 Essential hypertensi on (ICD-10 - I10) 10/15/2024 Hyponatremia (ICD-10 - E87.1) 10/26/2024 Hyponatremia (ICD-10 - E87.1) 10/26/2024 Urinary tract infect ion without hematuria, site unspecified (ICD-10 - N39.0) 11/02/2024 Hyponatremia (ICD-10 - E87.1) 09/28/2024 Elevated BUN (ICD-10 - R79.9) Order faxed to [facility] [facility] [phone]. will recheck bun 09/28/2024 Right hip pain (ICD- 10 - M25.551) Total time spent on the date of the encounter is 35 minutes including both face to face time spent and time spent reviewing documentation from [facility] and counseling the patient. 10/16/2024 Essential hypertensi on (ICD-10 - I10) doiing well, will continue current regiment 10/09/2024 Hypercholesterolemia (ICD-10 - E78.00) 10/06/2024 UTI (urinary tract infection) (ICD-10 - N39.0) order faxed to [facility] 10/26/2024 Hyponatremia (ICD-10 - E87.1) 09/28/2024 Hyponatremia (ICD-10 - E87.1) will check na 10/16/2024 Lower extremity maggie a (ICD-10 - R60.0) has just started lasix again, will continue to monitor 10/09/2024 Vitamin D deficiency (ICD-10 - E55.9) 10/06/2024 Hyponatremia (ICD-10 - E87.1) 09/28/2024 Orthostatic hypotens ion (ICD-10 - I95.1) will stop the doxzosin 10/16/2024 Encounter for immunization (ICD-10 - Z23) fluvaccine administered 09/28/2024 Fall, subsequent encounter (ICD-10 - W19.XXXD) 10/16/2024 Other Molst reviewed and completed with patient; [facility]work for [facility] completed , Total time spent on the date of the encounter is 35 minutes including both face to face time spent and time spent reviewing documentation, pertinent lab data, and counseling the patient. PLAN OF TREATMENT Pending Test Test Name Order Date Electrocardiogram (EKG) 05/07/2019 XR CHEST 2 VIEW PA & LAT 03/07/2021 Complete Blood Count Auto Diff 4 Urine Microscopic 10/26/2024 Comprehensive [place]. Panel Fast 4 Sodium 10/26/2024 Sodium 10/15/2024 Lipid Panel 10/09/2024 Vitamin D 25-OH Total 10/09/2024 UA ClnCatch+Micro w/rflx Cult 10/09/2024 UA ClnCatch+Micro w/rflx Cult 10/06/2024 Electrolytes 11/17/2024 Magnesium 11/17/2024 Next Appt Details Provider Name:Jason tuckerr, 11/17/2024 07:15:00 AM, [address] [place] [address], [address], [place], [place], [phone], Insurance Providers Payer Name Payer Address Payer Phone Subscriber Number Group Number Insured Name Patient Relationship to Insured Coverage Start Date Coverage End Date MEDICARE NHIC [address] [place] [address] [id number] Bhavna Gusman Self - patient is the insured [place] [address] [place] [address] [id number] Bhavna Gusman Self - patient is the insured MEDICAL (GENERAL) HISTORY Medical History History ICD Code probable stroke on asa so is on plavix t oo cathie's mother if bp gets normal, then she would pass o ut due to a stenosis in carotid
== END 2024-11-05 13:25 | disposition home or self-care (01) ==
LOC: HO.HVNA 13:24
PROVIDERS: Visit Provider Internal Medicine
DX: Z13.89 Encounter for screening for other disorder (principal)
CPT/HCPCS: 36415; 84295

== ENCOUNTER 2024-11-11 13:39 | Outpatient (AMB) | payer MEDICARE, SELFPAY ==
--- NOTE | 2024-11-11 13:45 | HO.NEPHOV_ITS ---
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: No Accompanied by: Daughter Allergies atorvastatin [Lipitor] Allergy (Severe, Verified 11/11/24 13:52) only oral hydralazine [HYDRALAZINE] Allergy (Severe, Verified 11/11/24 13:52) VOMITING, SYNCOPE labetalol [LABETALOL] Allergy (Unknown, Verified 11/11/24 13:52) SYNCOPE lisinopril [LISINOPRIL] Allergy (Unknown, Verified 11/11/24 13:52) HAIR FALLS OUT metoprolol [METOPROLOL] Allergy (Unknown, Verified 11/11/24 13:52) HAIR FALLS OUT penicillin V Allergy (Unknown, Verified 11/11/24 13:52) yeast infections HPI Comments Details: Bhavna was seen in follow up of her chronic kidney disease and hypertension. She had been accompanied by her daughter. She has been having significant progressive weight loss. 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 She had been having some edema. She is compliant with her medications. She has H/O CVA as well as carotid stenosis. She has no H/O chest pain, dizziness, PND, edema or orthopnea. 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 Her renal function remains at baseline. She feels her COPD has been progressively getting worse [facility] Medical History Cough History of sepsis (~01/2017) Hyperlipidemia Hypertension Former smoker, stopped smoking in distant past CAD (coronary artery disease) Osteoporosis (~2018) Stenosis of middle cerebral artery History of TIAs History of CVA (cerebrovascular accident) (~07/2017) Dyspnea Atelectasis Chronic hypoxemic respiratory failure COPD (chronic obstructive pulmonary disease) Surgical History History of heart artery stent (~2011) History of hand surgery (~2004) History of left knee replacement (~2014) History of arthroscopy of right knee (~2003) History of carpal tunnel surgery of left wrist (~1998) Family History Brother CAD (coronary artery disease) Father CAD (coronary artery disease) Myocardial infarction Mother Leukemia Social History Alcohol intake: current Alcohol type: wine and hard liquor Patient Tobacco Use Status: Former Tobacco user Tobacco use type: Cigarette Years Smoked: (1ppd x 40yrs, quit 2001) Review of Systems Const All systems reviewed & are unremarkable except as noted in HPI and below Physical Exam Const General: comfortable and no acute distress Orientation/consciousness: patient oriented x3 HEENT Head: Yes normocephalic Mouth: Normal oral and palatal mucosa present Eyes EOM: EOMs intact bilaterally Neck Neck: Yes supple Resp Auscultation: clear to auscultation bilaterally Cardio Jugular venous distension: no JVD Rate: regular rate GI Palpation (GI): Soft to palpation Auscultation: normal bowel sounds General: Yes no CVA tenderness Back/Spine/Pelvis Back: no CVA tenderness Skin General skin exam: no rashes or lesions noted Neuro General: patient oriented x3 and moves all extremities Extrem General: Yes no pedal edema Results Reviewed Nephrology Results: Hgb 14.2 g/dl (12.0-16.0) 09/12/24 WBC 9.7 X10*3/uL (4.8-10.8) 09/12/24 Plt Count 220 X10*3/uL (160-400) 09/12/24 Sodium 133 mmol/L (135-145) L 11/05/24 Potassium 4.6 mmol/L (3.3-5.1) 10/16/24 Chloride 93 mmol/L (96-108) L 10/16/24 Carbon Dioxide 29 mmol/L (22-29) 10/16/24 BUN 18 mg/dL (9-16) H 10/16/24 Creatinine 0.91 mg/dL (0.5-1.4) 10/16/24 Calcium 9.8 mg/dL (8.4-10.2) 09/12/24 Urine Protein Negative mg/dL (Neg-Trace) 10/28/24 Assessment & Plan Assessment & Plan (1) CKD (chronic kidney disease) stage 3, GFR 30-59 ml/min: Code(s): N18.30 - Chronic kidney disease, stage 3 unspecified Category: Medical Qualifiers: Chronic kidney disease stage 3 subtype: stage 3a (GFR 45-59) Qualified Code(s): N18.31 - Chronic kidney disease, stage 3a (2) Hypertension: Code(s): I10 - Essential (primary) hypertension Category: Medical Qualifiers: Hypertension type: renovascular hypertension Qualified Code(s): I15.0 - Renovascular hypertension (3) Hyponatremia: Code(s): E87.1 - Hypo-osmolality and hyponatremia Category: Medical Plan CKD 3 due to jeannette vascular disease and ischemic nephropathy ( Has CAD, carotid stenosis, intra cerebral MCA stenosis, MAVIS) BP not at goal; Volume status sub optimal; Started lasix 40 mg three times a week Tolerating ARB. Renal function remains at baseline Low sodium diet; Good hydration; No NSAID's (Morning- 25 mg carvedilol, Noon Spironolactone 25 mg, losartan 25 mg 7 PM- carvedilol 25 mg Bed time Doxazosin 2 mg & losartan 25 mg ) Shall adjust her BP medications with evolving data All her and her daughters questions answered; F/U given Orders: Orders Creatinine 4 Weeks E87.1 - Hypo-osmolality and hyponatremia, I15.0 - Renovasc ular hypertension, N18.31 - Chronic kidney disease, stage 3a Electrolytes 4 Weeks E87.1 - Hypo-osmolality and hyponatremia, I15.0 - Renovascular hypertension, N18.31 - Chronic kidney disease, stage 3a Blood Urea Nitrogen 4 Weeks E87.1 - Hypo-osmolality and hyponatremia, I15.0 - Renovascular hypertension, N18.31 - Chronic kidney disease, stage 3a Medications: Changed From furosemide (Lasix) 40 mg PO DAILY 10 tabs 0RF To furosemide (Lasix) 40 mg PO .3 times a week 14 tabs 5RF Coding Level of Care Code Est Pt Level 4 (40753) Diagnoses Stage 3a chronic kidney disease N18.31 Chronic kidney disease stage 3 subtype: stage 3a (GFR 45-59) Renovascular hypertension I15.0 Hypertension type: renovascular hypertension Hyponatremia E87.1
[2024-11-11 13:52] VITALS: BP 110/54; PULSE 85
--- OUTSIDE RECORDS SUMMARY | 2024-11-12 02:33 | XMS_ITS ---
Author Organization Jason Orantes MD Address [address] [place] [phone] Care Team Providers Care Tanning Wheel Filler Name Role Cortney LambertoFerminn Primary Care Provider REASON FOR VISIT 3 week sodium Encounters Encounter Location Date Provider Diagnosis Jason Orantes MD [address] [place] [phone] 10/26/2024 Jason Orantes Hyponatremia E87.1 ASSESSMENTS Encounter Date Diagnosis Assessment Notes Treatment Notes Treatment Clinical Notes 10/26/2024 Hyponatremia (ICD-10 - E87.1) PLAN OF TREATMENT Pending Test Test Name Order Date Sodium 10/26/2024 Next Appt Details Provider Name:Jason leung, 11/17/2024 07:15:00 AM, [address], [address], [place], [place], [phone],
--- OUTSIDE RECORDS SUMMARY | 2024-11-12 02:33 | XMS_ITS ---
Author Organization Jason Orantes MD Address [address] [place] [phone] Care Team Providers Care Supervisor [employer] Name Role Cortney LambertoJason Primary Care Provider RESULTS Component Value Reference Range Notes Sodium Reviewed date:11/05/2024 03:11:48 PM Interpretation: Performing Lab:[facility], [address] [place] [phone] Notes/Report: Sodium 133 135-145 mmol/L REASON FOR VISIT NA order Encounters Encounter Location Date Provider Diagnosis Jason Orantes MD [address] [facility] [place] [id number] 11/02/2024 Jason Orantes Hyponatremia E87.1 ASSESSMENTS Encounter Date Diagnosis Assessment Notes Treatment Notes Treatment Clinical Notes 11/02/2024 Hyponatremia (ICD-10 - E87.1) PLAN OF TREATMENT Next Appt Details Provider Name:Jason leung, 11/17/2024 07:15:00 AM, [address], [address], [place], [place], [phone],
--- OUTSIDE RECORDS SUMMARY | 2024-11-12 02:33 | XMS_ITS ---
Author Organization Jason Orantes MD Address [address] [place], [place] [phone] Care Team Providers Care Supervisor [employer] Name Role Phone LambertoFerminn Primary Care Provider RESULTS Component Value Reference Range Notes Sodium Reviewed date:10/29/2024 12:01:43 PM Interpretation: Performing Lab:[facility], [address] [place] [phone] Notes/Report: Sodium 126 135-145 mmol/L Urine Culture Reviewed date:10/29/2024 12:00:50 PM Interpretation: Performing Lab:[address] [phone] Notes/Report: Urine Culture Report Result Urine Culture 50,000 to 100,000 cfu/ml Urine Culture Mixed bacterial patti a characteristic of Urine Culture urogenital contamination. REASON FOR VISIT [facility] Lab Order Encounters Encounter Location Date Provider Diagnosis Jason Orantes MD [address] [place], [place] [phone] 10/26/2024 Jason Orantes Urinary tract infection without hematuria, site unspecified N39.0 and Hyponatremia E87.1 ASSESSMENTS Encounter Date Diagnosis Assessment Notes Treatment Notes Treatment Clinical Notes 10/26/2024 Urinary tract infection without hematuria, site unspecified (ICD-10 - N39.0) 10/26/2024 Hyponatremia (ICD-10 - E87.1) PLAN OF TREATMENT Pending Test Test Name Order Date Urine Microscopic 10/26/2024 Next Appt Details Provider Name:Jason Blakely ier, 11/17/2024 07:15:00 AM, [address] [place] [address], [address], [place], [place], [phone],
--- OUTSIDE RECORDS SUMMARY | 2024-11-12 02:33 | XMS_ITS | Patient Health Record ---
Author Organization Jason Orantes MD Address [address] [place], [place] [phone] Care Team Providers Care Blunger Machine Operator Name Role Phone LambertoFerminn Primary Care Provider ALLERGIES Allergen (clinical drug ingredient) Drug/Non Drug Allergy documented on EMR Reaction Allergy Type Onset Date Status Penicillin G Benzathine Vaginal yeast infection Drug Allergy Active RESULTS Component Value Reference Range Notes XR chest 2V Reviewed date:07/19/2024 06:29:57 PM Interpretation: Performing Lab: Notes/Report: [facility] [address] [place] [address] XRay Report Signed Patient: Bhavna Bob MR#: [id number] : 1940 Acct:[id number] Age/Sex: 84 / F ADM Date: 06/29/24 Loc: HO.XRAY Attending Dr: Rajeev Herrmann MD Ordering Physician: Rajeev Herrmann MD Date of Service: 06/29/24 Procedure(s): XR chest 2V Accession Number(s): [id number] cc: Jason Orantes MD; Rajeev Herrmann MD [...] in OV> 07/17/24 1934 DD/ 1450 TD/TT: Equipment Lead: MARY CARMEN Urine Culture Reviewed date:09/14/2024 11:00:24 AM Interpretation: Performing Lab:[address] [phone] Notes/Report: O:ESCCOL Escherichia coli Urine Culture Quant Urine Culture > 100,000 cfu/mL O:CORSPE Corynebacterium species Urine Culture Quant Urine Culture 10,000 to 50,000 cfu/mL Urine Culture [place] N/A Urine Culture Susceptibility not routinely performed on this isolate. Ampicillin <=2 Cefazolin <=4 Ceftriaxone <=0.25 Ciprofloxacin <=0.25 Gentamicin <=1 Nitrofurantoin <=16 Trimethoprim/Sulfamethoxa zole <=20 COVID-19 ID NOW (Garcia) Reviewed date:09/13/2024 09:20:12 AM Interpretation: Performing Lab:[address] [phone] Notes/Report: IDNOW Serial# [id number] COVID-19 Test Negative Negative COVID-19 Note See [...] with other viruses. Testing facilities within the [facility] and its territories are required to report [...] by authorized laboratories. Testing performed on the [employer] ID NOW utilizing NAAT. UA ClnCatch+Micro w/rflx Cul t Reviewed date:09/13/2024 09:19:36 AM Interpretation: Performing Lab:[facility], [address] [place] [phone] Notes/Report: [id number] Urine, Clean Catch Color Urine Yellow Appearance Urine Clear PH 5.0 5.0-9.0 Glucose Urine UA Negative Negative mg/dL Urine Blood Negative Negative Specific [place] - Urine 1.015 1.005-1.025 Urine Protein Negative [...] date:09/14/2024 10:59:56 AM Interpretation: Performing Lab: Notes/Report: [address] [address] [address] Scan Report Signed Patient: Bhavna Bob MR#: [id number] : 1940 Acct:[id number] Age/Sex: 84 / F ADM Date: 09/11/24 Loc: HO.ED Attending Dr: Ordering Physician: Onofre Serna MD Date of Service: 09/12/24 Procedure(s): CT pelvis wo IV con Accession Number(s): [id number] cc: Jason Orantes MD; Onofre Serna MD [...] aortoiliac calcific atherosclerosis. Electronically signed by: Jamison Landavedre MD 09/12/2024 03:17 AM EDT Dictated By: Jamison Landaverde MD Signed By: <Electronically signed by Jamison Landaverde MD in OV> 09/12/24316 DD/ 020 TD/TT: 09/12/24 021 Equipment Lead: LELAND XR hip RT w PEL1V Reviewed date:09/14/2024 10:55:28 AM Interpretation: Performing Lab: Notes/Report: [address] [address] XRay Report Signed Patient: Bhavna Bob MR#: [id number] : 1940 Acct:[id number] Age/Sex: 84 / F ADM Date: 09/11/24 Loc: HO.ED Attending Dr: Ordering Physician: Onofre Serna MD Date of Service: 09/12/24 Procedure(s): XR hip RT w PEL1V Accession Number(s): [id number] cc: Jason Orantes MD; Onofre Serna MD [...] 09/12/24 0152 DD/ 0035 TD/TT: 09/12/24 0040 Equipment Lead: LELAND XR chest 1V Reviewed date:09/14/2024 11:00:53 AM Interpretation: Performing Lab: Notes/Report: [address] [address] XRay Report Signed Patient: Bhavna Bob MR#: [id number] : 1940 Acct:[id number] Age/Sex: 84 / F ADM Date: 09/11/24 Loc: HO.ED Attending Dr: Ordering Physician: Onofre Serna MD Date of Service: 09/12/24 Procedure(s): XR chest 1V Accession Number(s): [id number] cc: Jason Orantes MD; Onofre Serna MD [...] 09/12/24 0152 DD/ 0035 TD/TT: 09/12/24 0040 Equipment Lead: LELAND Sodium Reviewed date:10/01/2024 11:44:31 AM Interpretation: Performing Lab:[address] [phone] Notes/Report: Sodium 125 135-145 mmol/L Blood Urea Nitrogen Reviewed date:09/29/2024 04:23:48 PM Interpretation: Performing Lab:[facility] [address] [address] Notes/Report: Blood Urea Nitrogen 25 9-16 mg/dL Creatinine Reviewed date:09/29/2024 04:22:39 PM Interpretation: Performing Lab:[facility], [address] [place] [phone] Notes/Report: Creatinine 1.26 0.5-1.4 mg/dL Estimated Glomerular Filt Rate 41 NOTE: For -[place] individuals, multiply the result by 1.210. Chronic Kidney Disease: Estimated GFR < 60 mL/min/1.73m2 Severe Kidney Disease: Estimated GFR < 15 mL/min/1.73m2 Hold Green Gel Reviewed date:09/29/2024 04:24:05 PM Interpretation: Performing Lab:[address] [address] Notes/Report: Hold Green Gel See Note Specimen held untested for 24 hours; Call to request Chemistry testing. Sodium Reviewed date:10/07/2024 12:14:33 PM Interpretation: Performing Lab:[facility], [address] [place] [phone] Notes/Report: Sodium 132 135-145 mmol/L Urinalysis and Microscopic Reviewed date:10/07/2024 12:14:23 PM Interpretation: Performing Lab:[address] [address] Notes/Report: Color Urine Dark Yellow Appearance Urine Clear PH 5.5 5.0-9.0 Glucose Urine UA Negative Negative mg/dL Urine Blood Negative Negative Specific [place] - Urine 1.020 1.005-1.025 Urine Protein Trace Neg-Trace mg/dL Urine Ketones Trace Negative mg/dL Nitrite Urine Negative Negative Leukocyte Esterase Urine Small (1+) Negative RBC Urine 0-2 0-2 /HPF WBC Urine 6-10 0-5 /HPF Squamous Epithelial Cell Urine 6-10 0-2 /HPF Bacteria Urine 4+ None Seen Hyaline Casts Urine 0-2 0-2 /LPF Urine Culture Reviewed date:10/10/2024 05:29:18 PM Interpretation: Performing Lab:[address] [address] Notes/Report: O:ESCCOL Escherichia coli Urine Culture Quant Urine Culture > 100,000 cfu/mL O:CORSPE Corynebacterium species Urine Culture Quant Urine Culture 50,000 to 100,000 cfu/mL Urine Culture Susc N/A Urine Culture Susceptibility not routinely performed on this isolate. Ampicillin 8 Cefazolin <=1 Cefepime <=0.12 Ceftriaxone <=0.25 Ciprofloxacin <=0.06 Gentamicin <=1 Nitrofurantoin <=16 Trimethoprim/Sulfamethoxa zole <=20 Electrolytes Reviewed date:10/17/2024 07:31:52 PM Interpretation: Performing Lab:[facility], [address] [place] [phone] Notes/Report: Sodium 132 135-145 mmol/L Potassium 4.6 3.3-5.1 mmol/L Chloride 93 96-108 mmol/L Carbon Dioxide 29 22-29 mmol/L Anion Gap 15 12-20 Blood Urea Nitrogen Reviewed date:10/17/2024 07:32:02 PM Interpretation: Performing Lab:[facility], [address] [place] [phone] Notes/Report: Blood Urea Nitrogen 18 9-16 mg/dL Creatinine Reviewed date:10/17/2024 07:31:42 PM Interpretation: Performing Lab:[facility], [address] [place] [phone] Notes/Report: Creatinine 0.91 0.5-1.4 mg/dL Estimated Glomerular Filt Rate 59 Chronic Kidney Disease: Estimated GFR < 60 mL/min/1.73m2 Severe Kidney Disease: Estimated GFR < 15 mL/min/1.73m2 Sodium Reviewed date:10/29/2024 12:01:43 PM Interpretation: Performing Lab:[address] [address] Notes/Report: Sodium 126 135-145 mmol/L Urine Culture Reviewed date:10/29/2024 12:00:50 PM Interpretation: Performing Lab:[address] [address] Notes/Report: Urine Culture Report Result Urine Culture 50,000 to 100,000 cfu/ml Urine Culture Mixed bacterial patti a characteristic of Urine Culture urogenital contamination. Urinalysis and Microscopic Reviewed date:10/29/2024 12:00:34 PM Interpretation: Performing Lab:[facility], [address] [place] [phone] Notes/Report: Color Urine Yellow Appearance Urine Clear PH 5.5 5.0-9.0 Glucose Urine UA Negative Negative mg/dL Urine Blood Negative Negative Specific [place] - Urine 1.010 1.005-1.025 Urine Protein Negative Neg-Trace mg/dL Urine Ketones Negative Negative mg/dL Nitrite Urine Negative Negative Leukocyte Esterase Urine Negative Negative RBC Urine 0-2 0-2 /HPF WBC Urine 0-5 0-5 /HPF Squamous Epithelial Cell Urine 3-5 0-2 /HPF Bacteria Urine None Seen None Seen Hyaline Casts Urine 0-2 0-2 /LPF Sodium Reviewed date:11/05/2024 03:11:48 PM Interpretation: Performing Lab:[facility], [address] [place] [phone] Notes/Report: Sodium 133 135-145 mmol/L REASON FOR [...] without current pathological fracture (M81.0) Active confirmed 54351633 Problem TIA (transient ischemic attack) (G45.9) Active confirmed Transient ische ady attack (358385947) Problem Vitamin D deficiency (E55.9) Active confirmed 96230487 Problem Panlobular emphysema (J43.1) Active confirmed 4073224 Problem Sciatica, right side (M54.31) Active confirmed 50354098894995932 Problem Essential hypertensi on (I10) Active confirmed 43968787 Problem History of TIA (transient ischemic attack) (Z86.73) Active confirmed 176416919 Problem History of coronary artery stent placement (Z95.5) Active confirmed 120723751 Problem Hot flashes (R23.2) Active confirmed 23 2163669 Problem Hypercholesterolemia (E78.00) Active confirmed 73407155 Problem Age-related incipien t cataract of both eyes (H25.093) Active confirmed 542645465 Problem Stage 3 chronic kidn ey disease, unspecified whether stage 3a or 3b CKD (N18.30) Active confirmed 007190528 VITAL SIGNS Blood pressure diastolic 60 mm Hg 10/16/2024 Height 66 in 10/16/2024 Blood pressure systolic 132 mm Hg 10/16/2024 Weight 133 lbs 09/28/2024 eight at home i s 133 BP BMI 21.46 kg/m2 09/28/2024 eight at home i s 133 BP Encounters Encounter Location Date Provider Diagnosis Jason Orantes MD [address] [place] [id number] 10/16/2024 Jason Orantes Hyponatremia E87.1 ; Stage 3 chronic kidney disease, unspecified whether stage 3a or 3b CKD N18.30 ; Essential hypertension I10 ; Lower extremity edema R60.0 and Encounter for immunization Z23 Jason Orantes MD [address] [place] [id number] 10/09/2024 Jason Orantes Essential hypertensi on I10 ; Hypercholesterolemia E78.00 and Vitamin D deficiency E55.9 Jason Orantes MD [address] [place] [id number] 10/15/2024 Jason Orantes Hyponatremia E87.1 Jason Orantes MD [address] [place] [id number] 10/06/2024 Jason Orantes UTI (urinary tract infection) N39.0 and Hyponatremia E87.1 Jason Orantes MD [address] [place] [id number] 10/26/2024 Jason Orantes Hyponatremia E87.1 Jason Orantes MD [address] [place] [id number] 04/09/2024 Jason Orantes MD [address] [place] [id number] 06/09/2024 Jason Orantes MD [address] [place] [id number] 09/03/2024 Jason Orantes MD [address] [place] [id number] 09/15/2024 Jason Orantes MD [address] [place] [id number] 09/25/2024 Jason Orantes MD [address] [place] [address] [id number] 10/05/2024 Jason Orantes MD [address] [place] [id number] 10/05/2024 Jason Orantes MD [address] [place] [id number] 10/09/2024 Jason Orantes MD [address] [place] [id number] 10/10/2024 Jason Orantes MD [address] [place] [id number] 10/10/2024 Jason Orantes MD [address] [place] [id number] 10/11/2024 Jasno Orantes MD [address] [place] [id number] 10/22/2024 Jason Orantes MD [address] [place] [address] [id number] 10/26/2024 Jason Orantes Urinary tract infect ion without hematuria, site unspecified N39.0 and Hyponatremia E87.1 Jason Orantes MD [address] [place] [id number] 11/02/2024 Jason Orantes Hyponatremia E87.1 Jason Orantes MD [address] [place], [place] [id number] 09/28/2024 Jason Orantes Elevated BUN R79.9 ; [...] (ICD-10 - R79.9) Order faxed to [facility] [phone]. will recheck bun 09/28/2024 Right hip pain [...] with patient; Paperwork for [facility] completed , Total time spent on the date of the encounter is 35 minutes including both face to face time spent and time spent reviewing documentation, pertinent lab data, and counseling the patient. PLAN OF TREATMENT Pending Test Test Name Order Date Electrocardiogram (EKG) 05/07/2019 XR CHEST 2 VIEW PA & LAT 03/07/2021 Complete Blood Count Auto Diff 4 Urine Microscopic 10/26/2024 Comprehensive [place]. Panel Fast 4 Sodium 10/15/2024 Sodium 10/26/2024 Lipid Panel 10/09/2024 Vitamin D 25-OH Total 10/09/2024 UA ClnCatch+Micro w/rflx Cult 10/09/2024 UA ClnCatch+Micro w/rflx Cult 10/06/2024 Electrolytes 11/17/2024 Magnesium 11/17/2024 Next Appt Details Provider Name:Jason tuckerr, 11/17/2024 07:15:00 AM, [address] [place] [address], [address], [place], [place], [phone], Insurance Providers Payer Name Payer Address Payer Phone Subscriber Number Group Number Insured Name Patient Relationship to Insured Coverage Start Date Coverage End Date MEDICARE NHIC [address] [place] [address] [id number] Bhavna Gusman Self - patient is the insured [place] [address] [place] [phone] [id number] Bhavna Gusman Self - patient is the insured MEDICAL (GENERAL) HISTORY Medical History History ICD Code probable stroke on asa so is on plavix t oo cathie's mother if bp gets normal, then she would pass o ut due to a stenosis in carotid
== END 2024-11-11 14:16 | disposition home or self-care (01) ==
PROVIDERS: PCP Internal Medicine; Visit Provider Internal Medicine Nephrology
DX: I12.9 Hypertensive chronic kidney disease with stage 1 through stage 4 chronic kidney disease, or unspecified chronic kidney disease (principal); N18.31 Chronic kidney disease, stage 3a; E87.1 Hypo-osmolality and hyponatremia
CPT/HCPCS: 99214

== ENCOUNTER → 2024-11-11 13:39 | Outpatient (BNVA) | payer MEDICARE, SELFPAY | PROVIDERS: PCP Internal Medicine; Visit Provider Internal Medicine Nephrology | DX: I15.0 Renovascular hypertension (principal); N18.31 Chronic kidney disease, stage 3a; E87.1 Hypo-osmolality and hyponatremia | CPT/HCPCS: 99212 ==

== ENCOUNTER 2024-11-16 10:48 | Outpatient (AMB) | payer MEDICARE, SELFPAY ==
--- NOTE | 2024-11-16 10:50 | A.OFFVIS_ITS ---
Vital Signs 11/16/24 10:51 Weight 153 lb 3.54 oz BP 98/48 L Blood Pressure Location Lt brachial Position Sitting Pulse 87 Pulse Source Pulse Oximeter Pulse Oximetry (%) 91 L Oxygen Delivery Method Room Air Intake Visit Reasons: COPD Allergies atorvastatin [Lipitor] Allergy (Severe, Verified 11/16/24 10:59) only oral hydralazine [HYDRALAZINE] Allergy (Severe, Verified 11/16/24 10:59) VOMITING, SYNCOPE labetalol [LABETALOL] Allergy (Unknown, Verified 11/16/24 10:59) SYNCOPE lisinopril [LISINOPRIL] Allergy (Unknown, Verified 11/16/24 10:59) HAIR FALLS OUT metoprolol [METOPROLOL] Allergy (Unknown, Verified 11/16/24 10:59) HAIR FALLS OUT penicillin V Allergy (Unknown, Verified 11/16/24 10:59) yeast infections Medication List - Last Reconciled 11/16/24 by Brenda Rios LPN albuterol sulfate 90 mcg/actuation 2 puffs PO Q6H PRN alirocumab (Praluent Pen) 150 mg subcut Q2W aspirin 81 mg PO DAILY budesonide 0.25 mg (2 mL) inhalation BID 30 days carvedilol 25 mg PO BID celecoxib 200 mg PO DAILY PRN doxazosin 2 mg PO BEDTIME@2300 fluoxetine 20 mg PO DAILY furosemide (Lasix) 40 mg PO .3 times a week ipratropium-albuterol 0.5 mg-3 mg(2.5 mg base)/3 mL 3 mL inhalation BID loratadine (Allerclear) 10 mg PO DAILY losartan 25 mg PO DAILY losartan 25 mg PO BEDTIME@2300 nebulizers As directed omeprazole 20 mg PO DAILY Oxygen Home Use As directed spironolactone 25 mg PO DAILY@1200 HPI Comments Details: The patient is a 84-year-old with a standing history of COPD. The patient taking her inhalers prescribed. This includes Symbicort and Spiriva. However she has been complaining worsening dyspnea exertion, moderate to severe. Therefore she has not been very active. Severe years ago The patient was admitted to the hospital with symptoms consistent with CVA. She did have a chest x-ray demonstrating atelectasis. During that hospitalization she was also transferred to [facility] for an acute CVA. She did not require any tPA. Currently she is taking a baby aspirin. During the visit today the patient did desaturate during 6 minutes walk test. The patient did qualify for oxygen. Therefore she was placed on 2 L of oxygen and overall she felt lot better. Therefore, I did recommend she start oxygen. She does not like the idea of using a nasal cannula. She is wondering about using a mask. Explained to her that she will need to use a nasal cannula especially for trying to get her a conserving device that she would likely need due to her handicap stay she will need better portability and that will be with a pulse valve. 08/03/2021 the patient is here for a pulmonary follow-up visit. Overall the patient has been doing better on the oxygen. She feels like she is less winded. Although, the oxygen tank does way a lot for her. She does use a walker and she is hopefully getting basket which she can put the small continues tank. OB hard for her to use the pulse valve because she is a mouth breather. In the meantime she should be using the concentrator in the house with the extension cord that will help as well. The patient did undergo pulmonary function studies demonstrating severe COPD with very severe diffusion impairment which goes along with her degree of symptoms. She has been on Symbicort and had added Spiriva during the last time. The therapy has been effective. She is wondering if she can try an alternative to see if she can get even better response. I do have a sample trial for Trelegy which I will give her to try for a month to see if this is more effective than the combination that she is on right now. The patient also did not go for chest x-ray and she will do that today. If her x- ray is any worse will go ahead and has a further adjusted changes. However if the chest x-ray has not significantly changed will just follow her chest x-rays. The patient is not interested in having extensive evaluations. 03/02/2022 for the patient is here for pulmonary follow-up visit. She continues to have dyspnea on exertion and chest tightness. Moderate severity. She has not gotten any significant relief from the Trelegy. Is also very expensive for her. She does get more relief from her nebulizer. Therefore I did talk to about switching over to just nebulized therapy to try to administer the medication more effectively. The patient is open to this idea. However, she does have a couple new boxes of Trelegy at home. The patient will start DuoNeb 4 times a day and budesonide twice a day. In the meantime I did review her chest x-ray with her demonstrated no acute changes from back in the fall 2020. If the patient continues to be symptomatic will repeat the ox x-ray and potentially additional imaging if that is not helpful. The patient continues use her oxygen both with activity and sleep this has been affecting beneficial for her. She did get a small conserving device which has made a lot easier for portability. 02/22/2023 the patient is here for a pulmonary follow-up visit. Does have dyspnea with activity, mild to moderate. The budesonide has been helpful. In addition to that she has been using her DuoNeb 4 times a day. Using the Combivent instead of the DuoNeb and also at times. She continues use the oxygen with good effect. She has not had to increase the amount. Patient did have a chest x-ray previously that with did evaluate together in the office. It appears that she has some minimal atelectasis at the base. However repeat the x-ray to make sure that has not worsened. Otherwise she is going to continue with current respiratory therapy. 06/29/2024 the patient is here for a pulmonary follow-up visit. The patient overall has been doing okay. Although she has been having significant weight loss. She also has a hard time walking. She is currently on a wheelchair. She does use the oxygen although she does not use it all the time. She knows to use it specially if she is moving around. She does get very short of breath when she is doing minimal activities that is because she sometimes does not use her oxygen. She does check her numbers and sometimes she is in the 80s as far as her oxygen presented patient understands that she needs to keep her oxygen on to maintain a pulse ox above 90%. She has not issues she will call. In the meantime she does continue to use the budesonide with albuterol with ipratropium. She does use the nebulizer about 4 times a day which is her most effective therapy. Will continue the current respiratory regimen. The patient also should get a chest x-ray specially with weight loss. Otherwise patient return in 1 year or sooner if she develops any worsening symptoms. For x-rays abnormal we may need additional imaging studies. 11/16/2024 The patient is here for a pulmonary follow up visit. She has been complainng of worsening dyspnea. She did have a fall. She was admitted to hospital and then went to rehab. While in rehab she was on Trelegy. Now she is back home using her nebulizer therapy which works better for her. She did have a CXR 09/24 which I personally reviewed without acute disease. She does need additional oxygen supplementation. On exam she does have minimal breath sounds and a prolonged expiratory phase. She will be placed on prednisone and will request bloodwork including a bloodgas. [facility] Medical History (Updated 11/16/24 @ 21:47 by Rajeev Herrmann MD) Cor pulmonale Cough History of sepsis (~01/2017) Hyperlipidemia Hypertension Former smoker, stopped smoking in distant past CAD (coronary artery disease) Osteoporosis (~2018) Stenosis of middle cerebral artery History of TIAs History of CVA (cerebrovascular accident) (~07/2017) Dyspnea Atelectasis Chronic hypoxemic respiratory failure COPD (chronic obstructive pulmonary disease) Surgical History History of heart artery stent (~2011) History of hand surgery (~2004) History of left knee replacement (~2014) History of arthroscopy of right knee (~2003) History of carpal tunnel surgery of left wrist (~1998) Family History Brother CAD (coronary artery disease) Father CAD (coronary artery disease) Myocardial infarction Mother Leukemia Social History Alcohol intake: current Alcohol type: wine and hard liquor Patient Tobacco Use Status: Former Tobacco user Tobacco use type: Cigarette Years Smoked: (1ppd x 40yrs, quit 2001) Review of Systems Const Denies night sweats and Reports weight loss ENT Denies change in voice, Denies lip swelling, Denies mouth pain, Reports nasal congestion, Reports nasal discharge and Denies tongue swelling Card Denies chest pain and Reports dyspnea on exertion Resp Reports cough and Reports dyspnea on exertion GI Denies abdominal pain Musc Denies no additional complaints, Reports abnormal gait, Reports myalgias, Reports limited range of motion and Reports muscle weakness Neuro Reports abnormal gait Psych Denies no additional complaints Nic/Lymph Denies easy bleeding and Denies lymphadenopathy Aller/Immun Denies lip swelling and Denies tongue swelling Physical Exam Vital Signs: Last Vital Signs Pulse 87 11/16/24 10:51 BP 98/48 L 11/16/24 10:51 Pulse Ox 91 L 11/16/24 10:51 Oxygen Delivery Method Room Air 11/16/24 10:51 Const General: alert Neck Neck: Yes normal visual inspection, Yes full ROM and Yes no lymphadenopathy Chest Chest palpation & inspection: normal inspection of the chest Resp Auscultation: diminished lung sounds Cardio Rate: regular rate Rhythm: regular rhythm Heart sounds: S1 normal heart sound present and S2 normal heart sound present GI Palpation (GI): Soft to palpation and nontender Auscultation: normal bowel sounds Skin General skin exam: rashes and/or lesions noted Office Procedures 6 Minute Walk Time:: 21:45 SPO2 % at rest: 87 Pulse at rest: 67 Distance in yards walked: 50 Jany Score: 6 Supplemental Oxygen: desaturated to 87% on RA, placed on 2L/pulse maintaining pox 90%, then ambulated with walker and required 4l/pulse to maintain pox 93% [address] - 6 Minute Walk Results Reviewed Results Reviewed: [address] [address] XRay Report Signed Patient: Bhavna Brannon MR#: [id number] : 1940 Acct:[id number] Age/Sex: 81 / F ADM Date: 08/03/21 Loc: [facility] Attending Dr: Rajeev Herrmann MD Ordering Physician: Rajeev Herrmann MD Date of Service: 08/03/21 Procedure(s): XR chest 2V Accession Number(s): [id number] cc: Rajeev Herrmann MD~ EXAMINATION: XR CHEST CLINICAL INFORMATION: Dyspnea COMPARISON: Previous chest x-ray most recent March 2021 TECHNIQUE: 2 views of the chest were obtained. FINDINGS: The cardiac and mediastinal contours are stable. The thoracic aorta is tortuous but unchanged. The lungs are well inflated. There is some scarring or subsegmental atelectasis at the right lung base. The lungs are otherwise clear. There is no pleural effusion or pneumothorax. There are degenerative changes of the spine and curvature to the right. XR/XR chest 2V IMPRESSION: Well-inflated lungs. Chronic scarring or subsegmental atelectasis at the right lung base.. Dictated By: Brea Morin MD Signed By: <Electronically signed by Brea Morin MD in OV> 08/04/21 1411 DD/ 1633 TD/TT:? It Administrative Assistant: MITZI Assessment & Plan Assessment & Plan (1) COPD (chronic obstructive pulmonary disease): Code(s): J44.9 - Chronic obstructive pulmonary disease, unspecified Category: Medical Qualifiers: COPD type: emphysema Emphysema type: centrilobular Qualified Code(s): J43.2 - Centrilobular emphysema (2) Chronic hypoxemic respiratory failure: Code(s): J96.11 - Chronic respiratory failure with hypoxia Category: Medical (3) Atelectasis: Code(s): J98.11 - Atelectasis Category: Medical (4) Dyspnea: Code(s): R06.00 - Dyspnea, unspecified Category: Medical Qualifiers: Dyspnea type: dyspnea on exertion Qualified Code(s): R06.00 - Dyspnea, unspecified (5) Cor pulmonale: Code(s): I27.81 - Cor pulmonale (chronic) Category: Medical Plan continue Duoneb QID continue BUdesonide nebs BID start prednisone taper continue diuresis as tolerated THELMA CXR bloodwork, blood gas Continue Oxygen 2L with activity and sleep, would benefir from POC for better portability outside of the home at 4l/pulse F/U 2-3 months Orders: Orders Complete Blood Count Auto Diff Today J96.11 - Chronic respiratory failure with hypoxia Venous Blood Gas Today J96.11 - Chronic respiratory failure with hypoxia Basic Metabolic Panel Today J96.11 - Chronic respiratory failure with hypoxia Erythrocyte Sedimentation Rate Today J96.11 - Chronic respiratory failure with hypoxia CA echo transthoracic complete Today I27.20 - Pulmonary hypertension, unspecified Medications: New prednisone PO daily; Take 2 tabs daily x 5 days, then 1 tablet daily x 5 days 15 tabs 0RF 10 days albuterol sulfate 2.5 mg (3 mL) inhalation BID 180 mL 11RF 30 days J43.2 - Centrilobular emphysema Coding Level of Care Code Est Pt Level 4 (23910) Complex EM visit Add On G2211 Diagnoses Centrilobular emphysema J43.2 COPD type: emphysema Emphysema type: centrilobular Chronic hypoxemic respiratory failure J96.11 Atelectasis J98.11 Dyspnea on exertion R06.00 Dyspnea type: dyspnea on exertion Cor pulmonale I27.81 CPT Codes Coding ([id number]) Time Spent (min) 18
[2024-11-16 10:51] VITALS: BP 98/48; PULSE 87; O2SAT 91
[2024-11-16 21:45] VITALS: PULSE 67; O2SAT 87
== END 2024-11-16 11:29 | disposition home or self-care (01) ==
PROVIDERS: PCP Internal Medicine; Visit Provider Hospitalist
DX: J43.2 Centrilobular emphysema (principal); J96.11 Chronic respiratory failure with hypoxia; J98.11 Atelectasis; I27.81 Cor pulmonale (chronic)
CPT/HCPCS: 94618; 99214

== ENCOUNTER 2024-11-16 10:48 | Outpatient (REF) | payer MEDICARE, SELFPAY ==
--- OUTSIDE RECORDS SUMMARY | 2024-11-16 11:38 | XMS_ITS ---
Author Organization Jason Orantes MD Address [address] [place] [phone] Care Team Providers Care Services Mgr Name Role Cortney RitikaJason mendosa Primary Care Provider [phone] RESULTS Component Value Reference Range Notes Sodium Reviewed date:11/05/2024 03:11:48 PM Interpretation: Performing Lab:[facility], [address] [place] [id number] Notes/Report: Sodium 133 135-145 mmol/L REASON FOR VISIT NA order Encounters Encounter Location Date Provider Diagnosis Jason Orantes MD [address] [place] [phone] 11/02/2024 Jason Orantes Hyponatremia E87.1 ASSESSMENTS Encounter Date Diagnosis Assessment Notes Treatment Notes Treatment Clinical Notes 11/02/2024 Hyponatremia (ICD-10 - E87.1) PLAN OF TREATMENT No Information
--- OUTSIDE RECORDS SUMMARY | 2024-11-16 11:39 | XMS_ITS ---
Author Organization Jason Orantes MD Address [address] [place], [place] [phone] Care Team Providers Care Clerk Operator Name Role Phone LambertoFerminn Primary Care Provider RESULTS Component Value Reference Range Notes Sodium Reviewed date:10/29/2024 12:01:43 PM Interpretation: Performing Lab:[facility], [address] [place] [phone] Notes/Report: Sodium 126 135-145 mmol/L Urine Culture Reviewed date:10/29/2024 12:00:50 PM Interpretation: Performing Lab:[address] [phone] Notes/Report: Urine Culture Report Result Urine Culture 50,000 to 100,000 cfu/ml Urine Culture Mixed bacterial patti a characteristic of Urine Culture urogenital contamination. REASON FOR VISIT [facility] Lab Order Encounters Encounter Location Date Provider Diagnosis Jason Orantes MD [address] [place], [place] [phone] 10/26/2024 Jason Orantes Urinary tract infection without hematuria, site unspecified N39.0 and Hyponatremia E87.1 ASSESSMENTS Encounter Date Diagnosis Assessment Notes Treatment Notes Treatment Clinical Notes 10/26/2024 Urinary tract infection without hematuria, site unspecified (ICD-10 - N39.0) 10/26/2024 Hyponatremia (ICD-10 - E87.1) PLAN OF TREATMENT Pending Test Test Name Order Date Urine Microscopic 10/26/2024
--- OUTSIDE RECORDS SUMMARY | 2024-11-16 11:39 | XMS_ITS ---
Author Organization Jason Orantes MD Address [address] [place] [phone] Care Team Providers Care Utility Tractor Operator Name Role Cortney LambertoFerminn Primary Care Provider [phone] REASON FOR VISIT 3 week sodium Encounters Encounter Location Date Provider Diagnosis Jason Orantes MD [address] [place] [phone] 10/26/2024 Jason Orantes Hyponatremia E87.1 ASSESSMENTS Encounter Date Diagnosis Assessment Notes Treatment Notes Treatment Clinical Notes 10/26/2024 Hyponatremia (ICD-10 - E87.1) PLAN OF TREATMENT Pending Test Test Name Order Date Sodium 10/26/2024
--- OUTSIDE RECORDS SUMMARY | 2024-11-16 11:39 | XMS_ITS | Patient Health Record ---
Author Organization Jason Orantes MD Address [address] [place], [place] [id number] Care Team Providers Care Steel Fitter Name Role Phone LambertoFerminn Primary Care Provider ALLERGIES Allergen (clinical drug ingredient) Drug/Non Drug Allergy documented on EMR Reaction Allergy Type Onset Date Status Penicillin G Benzathine Vaginal yeast infection Drug Allergy Active RESULTS Component Value Reference Range Notes XR chest 2V Reviewed date:07/19/2024 06:29:57 PM Interpretation: Performing Lab: Notes/Report: [facility] [address] [place] [address] XRay Report Signed Patient: Bahvna Bob MR#: [id number] : 1940 Acct:[id number] Age/Sex: 84 / F ADM Date: 06/29/24 Loc: HO.XRAY Attending Dr: Rajeev Herrmann MD Ordering Physician: Rajeev Herrmann MD Date of Service: 06/29/24 Procedure(s): XR chest 2V Accession Number(s): [id number] cc: Jason Orantes MD; Rajeev Herrmann MD [...] in OV> 07/17/24 1934 DD/ 1450 TD/TT: Director Of Managed Services: MARY CARMEN Urine Culture Reviewed date:09/14/2024 11:00:24 AM Interpretation: Performing Lab:[address] [address] Notes/Report: O:ESCCOL Escherichia coli Urine Culture Quant Urine Culture > 100,000 cfu/mL O:CORSPE Corynebacterium species Urine Culture Quant Urine Culture 10,000 to 50,000 cfu/mL Urine Culture [facility] [place] Urine Culture Susceptibility not routinely performed on this isolate. Ampicillin <=2 Cefazolin <=4 Ceftriaxone <=0.25 Ciprofloxacin <=0.25 Gentamicin <=1 Nitrofurantoin <=16 Trimethoprim/Sulfamethoxa zole <=20 COVID-19 ID NOW (Garcia) Reviewed date:09/13/2024 09:20:12 AM Interpretation: Performing Lab:[address] [address] Notes/Report: IDNOW Serial# [id number] COVID-19 Test Negative Negative COVID-19 Note See [...] with other viruses. Testing facilities within the [facility] and its territories are required to [...] by authorized laboratories. Testing performed on the [place] ID NOW utilizing NAAT. UA ClnCatch+Micro w/rflx Cul t Reviewed date:09/13/2024 09:19:36 AM Interpretation: Performing Lab:[facility], [address] [place] [phone] Notes/Report: [id number] Urine, Clean Catch Color Urine Yellow Appearance Urine Clear PH 5.0 5.0-9.0 Glucose Urine UA Negative Negative mg/dL Urine Blood Negative Negative Specific [place] - Urine 1.015 1.005-1.025 Urine Protein Negative [...] date:09/14/2024 10:59:56 AM Interpretation: Performing Lab: Notes/Report: [address] [address] [address] Scan Report Signed Patient: Bhavna Bob MR#: [id number] : 1940 Acct:[id number] Age/Sex: 84 / F ADM Date: 09/11/24 Loc: HO.ED Attending Dr: Ordering Physician: Onofre Serna MD Date of Service: 09/12/24 Procedure(s): CT pelvis wo IV con Accession Number(s): [id number] cc: Jason Orantes MD; Onofre Serna MD [...] OV> 09/12/24316 DD/ 020 TD/TT: 09/12/24 021 Director Of Managed Services: LELAND XR hip RT w PEL1V Reviewed date:09/14/2024 10:55:28 AM Interpretation: Performing Lab: Notes/Report: [address] [address] XRay Report Signed Patient: Bhavna Bob MR#: [id number] : 1940 Acct:[id number] Age/Sex: 84 / F ADM Date: 09/11/24 Loc: HO.ED Attending Dr: Ordering Physician: Onofre Serna MD Date of Service: 09/12/24 Procedure(s): XR hip RT w PEL1V Accession Number(s): [id number] cc: Jason Orantes MD; Onofre Serna MD [...] 09/12/24 0152 DD/ 0035 TD/TT: 09/12/24 0040 Director Of Managed Services: LELAND XR chest 1V Reviewed date:09/14/2024 11:00:53 AM Interpretation: Performing Lab: Notes/Report: [address] [address] XRay Report Signed Patient: Bhavna Bob MR#: [id number] : 1940 Acct:[id number] Age/Sex: 84 / F ADM Date: 09/11/24 Loc: HO.ED Attending Dr: Ordering Physician: Onofre Serna MD Date of Service: 09/12/24 Procedure(s): XR chest 1V Accession Number(s): [id number] cc: Jason Orantes MD; Onofre Serna MD [...] 09/12/24 0152 DD/ 0035 TD/TT: 09/12/24 0040 Director Of Managed Services: LELAND Sodium Reviewed date:10/01/2024 11:44:31 AM Interpretation: Performing Lab:[address] [address] Notes/Report: Sodium 125 135-145 mmol/L Blood Urea Nitrogen Reviewed date:09/29/2024 04:23:48 PM Interpretation: Performing Lab:[place] [address] [address] Notes/Report: Blood Urea Nitrogen 25 9-16 mg/dL Creatinine Reviewed date:09/29/2024 04:22:39 PM Interpretation: Performing Lab:[facility], [address] [place] [phone] Notes/Report: Creatinine 1.26 0.5-1.4 mg/dL Estimated Glomerular Filt Rate 41 NOTE: For -Northern Irish individuals, multiply the result by 1.210. Chronic Kidney Disease: Estimated GFR < 60 mL/min/1.73m2 Severe Kidney Disease: Estimated GFR < 15 mL/min/1.73m2 Hold Green Gel Reviewed date:09/29/2024 04:24:05 PM Interpretation: Performing Lab:[address] [address] Notes/Report: Hold Green Gel See Note Specimen held untested for 24 hours; Call to request Chemistry testing. Sodium Reviewed date:10/07/2024 12:14:33 PM Interpretation: Performing Lab:[facility], [address] [place] [phone] Notes/Report: Sodium 132 135-145 mmol/L Urinalysis and Microscopic Reviewed date:10/07/2024 12:14:23 PM Interpretation: Performing Lab:[address] [address] Notes/Report: Color Urine Dark Yellow Appearance Urine Clear PH 5.5 5.0-9.0 Glucose Urine UA Negative Negative mg/dL Urine Blood Negative Negative Specific [place] - Urine 1.020 1.005-1.025 Urine Protein Trace Neg-Trace mg/dL Urine Ketones Trace Negative mg/dL Nitrite Urine Negative Negative Leukocyte Esterase Urine Small (1+) Negative RBC Urine 0-2 0-2 /HPF WBC Urine 6-10 0-5 /HPF Squamous Epithelial Cell Urine 6-10 0-2 /HPF Bacteria Urine 4+ None Seen Hyaline Casts Urine 0-2 0-2 /LPF Urine Culture Reviewed date:10/10/2024 05:29:18 PM Interpretation: Performing Lab:[address] [address] Notes/Report: O:ESCCOL Escherichia coli Urine Culture Quant Urine Culture > 100,000 cfu/mL O:CORSPE Corynebacterium species Urine Culture Quant Urine Culture 50,000 to 100,000 cfu/mL Urine Culture Susc N/A Urine Culture Susceptibility not routinely performed on this isolate. Ampicillin 8 Cefazolin <=1 Cefepime <=0.12 Ceftriaxone <=0.25 Ciprofloxacin <=0.06 Gentamicin <=1 Nitrofurantoin <=16 Trimethoprim/Sulfamethoxa zole <=20 Electrolytes Reviewed date:10/17/2024 07:31:52 PM Interpretation: Performing Lab:[facility], [address] [place] [phone] Notes/Report: Sodium 132 135-145 mmol/L Potassium 4.6 3.3-5.1 mmol/L Chloride 93 96-108 mmol/L Carbon Dioxide 29 22-29 mmol/L Anion Gap 15 12-20 Blood Urea Nitrogen Reviewed date:10/17/2024 07:32:02 PM Interpretation: Performing Lab:[facility], [address] [place] [phone] Notes/Report: Blood Urea Nitrogen 18 9-16 mg/dL Creatinine Reviewed date:10/17/2024 07:31:42 PM Interpretation: Performing Lab:[facility], [address] [place] [phone] Notes/Report: Creatinine 0.91 0.5-1.4 mg/dL Estimated Glomerular Filt Rate 59 Chronic Kidney Disease: Estimated GFR < 60 mL/min/1.73m2 Severe Kidney Disease: Estimated GFR < 15 mL/min/1.73m2 Sodium Reviewed date:10/29/2024 12:01:43 PM Interpretation: Performing Lab:[address] [address] Notes/Report: Sodium 126 135-145 mmol/L Urine Culture Reviewed date:10/29/2024 12:00:50 PM Interpretation: Performing Lab:[address] [address] Notes/Report: Urine Culture Report Result Urine Culture 50,000 to 100,000 cfu/ml Urine Culture Mixed bacterial patti a characteristic of Urine Culture urogenital contamination. Urinalysis and Microscopic Reviewed date:10/29/2024 12:00:34 PM Interpretation: Performing Lab:[facility], [address] [place] [phone] Notes/Report: Color Urine Yellow Appearance Urine Clear PH 5.5 5.0-9.0 Glucose Urine UA Negative Negative mg/dL Urine Blood Negative Negative Specific [place] - Urine 1.010 1.005-1.025 Urine Protein Negative Neg-Trace mg/dL Urine Ketones Negative Negative mg/dL Nitrite Urine Negative Negative Leukocyte Esterase Urine Negative Negative RBC Urine 0-2 0-2 /HPF WBC Urine 0-5 0-5 /HPF Squamous Epithelial Cell Urine 3-5 0-2 /HPF Bacteria Urine None Seen None Seen Hyaline Casts Urine 0-2 0-2 /LPF Sodium Reviewed date:11/05/2024 03:11:48 PM Interpretation: Performing Lab:[facility], [address] [place] [phone] Notes/Report: Sodium 133 135-145 mmol/L REASON FOR [...] without current pathological fracture (M81.0) Active confirmed 02141034 Problem TIA (transient ischemic attack) (G45.9) Active confirmed Transient ische ady attack (637752281) Problem Vitamin D deficiency (E55.9) Active confirmed 97948090 Problem Panlobular emphysema (J43.1) Active confirmed 5043266 Problem Sciatica, right side (M54.31) Active confirmed 41065449694629261 Problem Essential hypertensi on (I10) Active confirmed 49048774 Problem History of TIA (transient ischemic attack) (Z86.73) Active confirmed 789843844 Problem History of coronary artery stent placement (Z95.5) Active confirmed 482528629 Problem Hot flashes (R23.2) Active confirmed 23 7398105 Problem Hypercholesterolemia (E78.00) Active confirmed 34188072 Problem Age-related incipien t cataract of both eyes (H25.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) Active confirmed 780078084 Problem Stage 3 chronic kidn ey disease, unspecified whether stage 3a or 3b CKD (N18.30) Active confirmed 273063692 VITAL SIGNS Blood pressure diastolic 60 mm Hg 10/16/2024 Height 66 in 10/16/2024 Blood pressure systolic 132 mm Hg 10/16/2024 Weight 133 lbs 09/28/2024 eight at home i s 133 BP BMI 21.46 kg/m2 09/28/2024 eight at home i s 133 BP Encounters Encounter Location Date Provider Diagnosis Jason Orantes MD [address] [place] [id number] 10/16/2024 Jason Orantes Hyponatremia E87.1 ; Stage 3 chronic kidney disease, unspecified whether stage 3a or 3b CKD N18.30 ; Essential hypertension I10 ; Lower extremity edema R60.0 and Encounter for immunization Z23 Jason Orantes MD [address] [place] [address] [id number] 10/09/2024 Jason Orantes Essential hypertensi on I10 ; Hypercholesterolemia E78.00 and Vitamin D deficiency E55.9 Jason Orantes MD [address] [place] [address] [id number] 10/15/2024 Jason Orantes Hyponatremia E87.1 Jason Orantes MD [address] [place] [address] [id number] 10/06/2024 Jason Orantes UTI (urinary tract infection) N39.0 and Hyponatremia E87.1 Jason Orantes MD [address] [place] [address] [id number] 10/26/2024 Jason Orantes Hyponatremia E87.1 Jason Orantes MD [address] [place] [address] [id number] 04/09/2024 Jason Orantes MD [address] [place] [address] [id number] 06/09/2024 Jason Orantes MD [address] [place] [address] [id number] 09/03/2024 Jason Orantes MD [address] [place] [address] [id number] 09/15/2024 Jason Orantes MD [address] [place] [address] [id number] 09/25/2024 Jason Orantes MD [address] [place] [address] [id number] 10/05/2024 Jason Orantes MD [address] [place] [address] [id number] 10/05/2024 Jason Orantes MD [address] [place] [address] [id number] 10/09/2024 Jason Orantes MD [address] [place] [address] [id number] 10/10/2024 Jason Orantes MD [address] [place] [address] [id number] 10/10/2024 Jason Orantes MD [address] [place] [address] [id number] 10/11/2024 Jason Orantes MD [address] [place] [address] [id number] 10/22/2024 Jason Orantes MD [address] [place] [address] [id number] 10/26/2024 Jason Orantes Urinary tract infect ion without hematuria, site unspecified N39.0 and Hyponatremia E87.1 Jason Orantes MD [address] [place] [address] [id number] 11/02/2024 Jason Orantes Hyponatremia E87.1 Jason Orantes MD [address] [place], [place] [id number] 09/28/2024 Jason Orantes Elevated BUN R79.9 ; [...] (ICD-10 - R79.9) Order faxed to [facility] [employer] [phone]. will recheck bun 09/28/2024 Right hip pain [...] patient; Paperwork for [facility] for [facility] completed , Total time spent on the date of the encounter is 35 minutes including both face to face time spent and time spent reviewing documentation, pertinent lab data, and counseling the patient. PLAN OF TREATMENT Pending Test Test Name Order Date Electrocardiogram (EKG) 05/07/2019 XR CHEST 2 VIEW PA & LAT 03/07/2021 Complete Blood Count Auto Diff 4 Urine Microscopic 10/26/2024 Comprehensive [place]. Panel Fast 4 Sodium 10/26/2024 Sodium 10/15/2024 Lipid Panel 10/09/2024 Vitamin D 25-OH Total 10/09/2024 UA ClnCatch+Micro w/rflx Cult 10/09/2024 UA ClnCatch+Micro w/rflx Cult 10/06/2024 Electrolytes 11/17/2024 Magnesium 11/17/2024 Insurance Providers Payer Name Payer Address Payer Phone Subscriber Number Group Number Insured Name Patient Relationship to Insured Coverage Start Date Coverage End Date [employer] [address] [place] [address] [id number] Bhavna Gusman Self - patient is the insured [employer] [place] [place] [address] [place] [address] [id number] Bhavna Gusman Self - patient is the insured MEDICAL (GENERAL) HISTORY Medical History History ICD Code probable stroke on asa so is on plavix t oo cathie's mother if bp gets normal, then she would pass o ut due to a stenosis in carotid
[2024-11-16 11:56] LABS: MANUAL DIFF FLAG NO
[2024-11-16 12:01] LABS: Venous Blood Gas Refer to POC result
[2024-11-16 12:02] LABS: VBG Base Excess 11.7 mmol/L; VBG HCO3 38 mmol/L (22-26); VBG O2 % Saturation < 30.0 %; VBG pCO2 60 mmHg; VBG pH 7.41 (7.32-7.43); VBG pO2 24 mmHg
[2024-11-16 12:57] LABS: Basophils Absolute Auto 0.1 X10*3/uL (0.0-0.2); Basophils Percent Auto 1.6 % (0-2); Eosinophils Absolute Auto 0.3 X10*3/uL (0.0-0.4); Eosinophils Percent Auto 4.7 % (0-4); Hematocrit 36.9 % (37.0-47.0); Hemoglobin 12.1 g/dl (12.0-16.0); Imm Gran Abs Auto 0.04 X10*3/uL (0.00-0.03); Imm Gran Pct Auto 0.6 % (0.0-0.4); Lymphocytes Absolute Auto 0.7 X10*3/uL (1.2-4.9); Lymphocytes Percent Auto 10.2 % (20-40); Mean Corpuscular HGB Conc 32.8 g/dl (31.0-35.0); Mean Corpuscular Hemoglobin 28.9 pg (27.0-33.0); Mean Corpuscular Volume 88.1 fL (80.0-98.0); Mean Platelet Volume 9.1 fL (9.4-12.3); Monocytes Absolute Auto 0.9 X10*3/uL (0.1-1.2); Monocytes Percent Auto 12.2 % (2-11); Neutrophils Percent Auto 70.7 % (45-73); Platelet Count 352 X10*3/uL (160-400); Red Blood Count 4.19 X10*6/uL (4.20-5.50); Red Cell Distribution Width 12.7 % (11.0-16.0)
[2024-11-16 13:10] LABS: Anion Gap 13 (12-20); Blood Urea Nitrogen 20 mg/dL (9-16); Calcium 9.1 mg/dL (8.4-10.2); Carbon Dioxide 34 mmol/L (22-29); Chloride 91 mmol/L (96-108); Estimated Glomerular Filt Rate 48; Glucose Random 104 mg/dL (60-115); Potassium 3.9 mmol/L (3.3-5.1); Sodium 134 mmol/L (135-145)
[2024-11-16 13:58] LABS: Erythrocyte Sedimentation Rate 14 MM/HR (0-20)
== END 2024-11-16 10:49 | disposition home or self-care (01) ==
LOC: HO.LAB 10:48
PROVIDERS: PCP Internal Medicine; Visit Provider Hospitalist
DX: J96.11 Chronic respiratory failure with hypoxia (principal); J43.2 Centrilobular emphysema; J98.11 Atelectasis; I27.81 Cor pulmonale (chronic)
CPT/HCPCS: 36415; 80048; 82803; 85025; 85652; 94618; 99212

== ENCOUNTER 2024-11-17 14:19 | Outpatient (REF) | payer MEDICARE, SELFPAY ==
[2024-11-17 15:43] LABS: Anion Gap 13 (12-20); Carbon Dioxide 28 mmol/L (22-29); Chloride 92 mmol/L (96-108); Magnesium 1.4 mg/dL (1.6-2.6); Sodium 129 mmol/L (135-145)
== END 2024-11-17 14:20 | disposition home or self-care (01) ==
LOC: HO.LNP 14:19
PROVIDERS: Visit Provider Internal Medicine
DX: N39.0 Urinary tract infection, site not specified (principal); E87.1 Hypo-osmolality and hyponatremia
CPT/HCPCS: 80051; 83735

== ENCOUNTER 2025-02-09 14:05 | Outpatient (AMB) | payer MEDICARE, SELFPAY ==
[2025-02-09 14:14] VITALS: BP 92/46; PULSE 72; O2SAT 92; BMI 23.0
--- NOTE | 2025-02-09 14:14 | MHC.OFFVIS ---
Vital Signs 02/09/25 14:14 Height 5 ft 7 in Weight 146 lb 9.718 oz BMI 23.0 BP 92/46 L Blood Pressure Location Rt brachial Position Sitting Pulse 72 Pulse Source Pulse Oximeter Pulse Oximetry (%) 92 Oxygen Delivery Method Nasal Cannula Oxygen Flow Rate 2 Intake Visit Reasons: COPD Allergies atorvastatin [Lipitor] Allergy (Severe, Verified 02/09/25 14:19) only oral hydralazine [HYDRALAZINE] Allergy (Severe, Verified 02/09/25 14:19) VOMITING, SYNCOPE labetalol [LABETALOL] Allergy (Unknown, Verified 02/09/25 14:19) SYNCOPE lisinopril [LISINOPRIL] Allergy (Unknown, Verified 02/09/25 14:19) HAIR FALLS OUT metoprolol [METOPROLOL] Allergy (Unknown, Verified 02/09/25 14:19) HAIR FALLS OUT penicillin V Allergy (Unknown, Verified 02/09/25 14:19) yeast infections HPI Comments Details: The patient is a 84-year-old with a standing history of COPD. The patient taking her inhalers prescribed. This includes Symbicort and Spiriva. However she has been complaining worsening dyspnea exertion, moderate to severe. Therefore she has not been very active. Severe years ago The patient was admitted to the hospital with symptoms consistent with CVA. She did have a chest x-ray demonstrating atelectasis. During that hospitalization she was also transferred to [facility] for an acute CVA. She did not require any tPA. Currently she is taking a baby aspirin. During the visit today the patient did desaturate during 6 minutes walk test. The patient did qualify for oxygen. Therefore she was placed on 2 L of oxygen and overall she felt lot better. Therefore, I did recommend she start oxygen. She does not like the idea of using a nasal cannula. She is wondering about using a mask. Explained to her that she will need to use a nasal cannula especially for trying to get her a conserving device that she would likely need due to her handicap stay she will need better portability and that will be with a pulse valve. 08/03/2021 the patient is here for a pulmonary follow-up visit. Overall the patient has been doing better on the oxygen. She feels like she is less winded. Although, the oxygen tank does way a lot for her. She does use a walker and she is hopefully getting basket which she can put the small continues tank. OB hard for her to use the pulse valve because she is a mouth breather. In the meantime she should be using the concentrator in the house with the extension cord that will help as well. The patient did undergo pulmonary function studies demonstrating severe COPD with very severe diffusion impairment which goes along with her degree of symptoms. She has been on Symbicort and had added Spiriva during the last time. The therapy has been effective. She is wondering if she can try an alternative to see if she can get even better response. I do have a sample trial for Trelegy which I will give her to try for a month to see if this is more effective than the combination that she is on right now. The patient also did not go for chest x-ray and she will do that today. If her x-ray is any worse will go ahead and has a further adjusted changes. However if the chest x-ray has not significantly changed will just follow her chest x-rays. The patient is not interested in having extensive evaluations. 03/02/2022 for the patient is here for pulmonary follow-up visit. She continues to have dyspnea on exertion and chest tightness. Moderate severity. She has not gotten any significant relief from the Trelegy. Is also very expensive for her. She does get more relief from her nebulizer. Therefore I did talk to about switching over to just nebulized therapy to try to administer the medication more effectively. The patient is open to this idea. However, she does have a couple new boxes of Trelegy at home. The patient will start DuoNeb 4 times a day and budesonide twice a day. In the meantime I did review her chest x-ray with her demonstrated no acute changes from back in the fall 2020. If the patient continues to be symptomatic will repeat the ox x-ray and potentially additional imaging if that is not helpful. The patient continues use her oxygen both with activity and sleep this has been affecting beneficial for her. She did get a small conserving device which has made a lot easier for portability. 02/22/2023 the patient is here for a pulmonary follow-up visit. Does have dyspnea with activity, mild to moderate. The budesonide has been helpful. In addition to that she has been using her DuoNeb 4 times a day. Using the Combivent instead of the DuoNeb and also at times. She continues use the oxygen with good effect. She has not had to increase the amount. Patient did have a chest x-ray previously that with did evaluate together in the office. It appears that she has some minimal atelectasis at the base. However repeat the x-ray to make sure that has not worsened. Otherwise she is going to continue with current respiratory therapy. 06/29/2024 the patient is here for a pulmonary follow-up visit. The patient overall has been doing okay. Although she has been having significant weight loss. She also has a hard time walking. She is currently on a wheelchair. She does use the oxygen although she does not use it all the time. She knows to use it specially if she is moving around. She does get very short of breath when she is doing minimal activities that is because she sometimes does not use her oxygen. She does check her numbers and sometimes she is in the 80s as far as her oxygen presented patient understands that she needs to keep her oxygen on to maintain a pulse ox above 90%. She has not issues she will call. In the meantime she does continue to use the budesonide with albuterol with ipratropium. She does use the nebulizer about 4 times a day which is her most effective therapy. Will continue the current respiratory regimen. The patient also should get a chest x-ray specially with weight loss. Otherwise patient return in 1 year or sooner if she develops any worsening symptoms. For x-rays abnormal we may need additional imaging studies. 11/16/2024 The patient is here for a pulmonary follow up visit. She has been complainng of worsening dyspnea. She did have a fall. She was admitted to hospital and then went to rehab. While in rehab she was on Trelegy. Now she is back home using her nebulizer therapy which works better for her. She did have a CXR 09/24 which I personally reviewed without acute disease. She does need additional oxygen supplementation. On exam she does have minimal breath sounds and a prolonged expiratory phase. She will be placed on prednisone and will request bloodwork including a bloodgas. 02/09/2025 the patient is here for a pulmonary follow-up visit. Overall the patient has been doing okay. She has been using her Trelegy with good effect and also his nebulized therapy as needed. She has some lower extremity edema but she has not been taking her Aldactone. She is going to restart taking it in the morning. She is also monitoring closely her blood pressure because it has been low. The patient did have a blood gas done back in November demonstrating a elevated pCO2 of 60 consistent with chronic hypercarbic respiratory failure. She rather not use a noninvasive ventilator at this time. The family and the patient will monitor closely for any symptoms of CO2 narcosis and then consider noninvasive therapy done. She continues years oxygen with good effect. Her concentrator though is mainly like burning and she is concerned that is an old concentrator and needs to be assess and may be changed specially since he uses it 24 hours a day. Will go ahead and request G[facility] to check out the concentrator and see if it needs to be replaced. In the meantime she is going to continue with the current respiratory therapy. She also continues on 5 mg of prednisone daily. She is going to cut that down to every other day. [facility] Medical History (Updated 11/16/24 @ 21:47 by Rajeev Herrmann MD) Cor pulmonale Cough History of sepsis (~01/2017) Hyperlipidemia Hypertension Former smoker, stopped smoking in distant past CAD (coronary artery disease) Osteoporosis (~2018) Stenosis of middle cerebral artery History of TIAs History of CVA (cerebrovascular accident) (~07/2017) Dyspnea Atelectasis Chronic hypoxemic respiratory failure COPD (chronic obstructive pulmonary disease) Surgical History History of heart artery stent (~2011) History of hand surgery (~2004) History of left knee replacement (~2014) History of arthroscopy of right knee (~2003) History of carpal tunnel surgery of left wrist (~1998) Family History Brother CAD (coronary artery disease) Father CAD (coronary artery disease) Myocardial infarction Mother Leukemia Social History Alcohol intake: current Alcohol type: wine and hard liquor Patient Tobacco Use Status: Former Tobacco user Tobacco use type: Cigarette Years Smoked: (1ppd x 40yrs, quit 2001) Review of Systems Const Denies night sweats and Reports weight loss ENT Denies change in voice, Denies lip swelling, Denies mouth pain, Reports nasal congestion, Reports nasal discharge and Denies tongue swelling Card Denies chest pain and Reports dyspnea on exertion Resp Reports cough and Reports dyspnea on exertion GI Denies abdominal pain Musc Denies no additional complaints, Reports abnormal gait, Reports myalgias, Reports limited range of motion and Reports muscle weakness Neuro Reports abnormal gait Psych Denies no additional complaints Nic/Lymph Denies easy bleeding and Denies lymphadenopathy Aller/Immun Denies lip swelling and Denies tongue swelling Physical Exam Vital Signs: Last Vital Signs Pulse 72 02/09/25 14:14 BP 92/46 L 02/09/25 14:14 Pulse Ox 92 02/09/25 14:14 Oxygen Delivery Method Nasal Cannula 02/09/25 14:14 Oxygen Flow Rate 2 02/09/25 14:14 BMI result Body Mass Index 23.0 Const General: alert Neck Neck: Yes normal visual inspection, Yes full ROM and Yes no lymphadenopathy Chest Chest palpation & inspection: normal inspection of the chest Resp Auscultation: diminished lung sounds Cardio Rate: regular rate Rhythm: regular rhythm Heart sounds: S1 normal heart sound present and S2 normal heart sound present GI Palpation (GI): Soft to palpation and nontender Auscultation: normal bowel sounds Skin General skin exam: rashes and/or lesions noted Immunizations pneumoc 20-yeimy conj-dip cr(PF) 0.5 mL IM syringe Performing Provider: Rajeev Herrmann MD Performing Location: [facility] Pulmonology Services Administered by: Brenda Rios LPN on 02/09/25 14:51 Dose Route Admin Location Dispensed Lot Number Expiration Date [facility] Licensed [employer] 0.5 mL IM Left Deltoid 0.5 mL [id number] 05/01/26 7518-7396-45 [employer] (f. [employer]) VIS Given Date VIS Provided VIS Publication Date 02/09/25 Single Vaccine 23 Eligibility Eligibility Date Funding Source Not [facility] Eligible 02/09/25 Private Assessment & Plan Assessment & Plan (1) COPD (chronic obstructive pulmonary disease): Code(s): J44.9 - Chronic obstructive pulmonary disease, unspecified Category: Medical Qualifiers: COPD type: emphysema Emphysema type: centrilobular Qualified Code(s): J43.2 - Centrilobular emphysema (2) Chronic hypoxemic respiratory failure: Code(s): J96.11 - Chronic respiratory failure with hypoxia Category: Medical (3) Atelectasis: Code(s): J98.11 - Atelectasis Category: Medical (4) Dyspnea: Code(s): R06.00 - Dyspnea, unspecified Category: Medical Qualifiers: Dyspnea type: dyspnea on exertion Qualified Code(s): R06.00 - Dyspnea, unspecified (5) Cor pulmonale: Code(s): I27.81 - Cor pulmonale (chronic) Category: Medical Plan continue Duoneb QID continue BUdesonide nebs BID prednisone taper will decrease 5 QOD continue diuresis as tolerated THELMA bloodwork, blood gas, cont to monitor. No NIV at this time Continue Oxygen 2L with activity and sleep, would benefir from POC for better portability outside of the home at 4l/pulse F/U 2-3 months Orders: Orders Pneumococcal 20 Immunization Today Z23 - Encounter for immunization Coding Level of Care Code Est Pt Level 4 (41325) Complex EM visit Add On G2211 Diagnoses Centrilobular emphysema J43.2 COPD type: emphysema Emphysema type: centrilobular Chronic hypoxemic respiratory failure J96.11 Atelectasis J98.11 Dyspnea on exertion R06.00 Dyspnea type: dyspnea on exertion Cor pulmonale I27.81 Time Spent (min) 17
--- OUTSIDE RECORDS SUMMARY | 2025-02-09 17:16 | XMS_ITS | Encounter Summary ---
Author Organization [employer] [facility] Address [address] [place] [address] [address] [place] [address] Care Team Providers Care Coal Getter Name Role Phone Unavailable Primary Care Provider Unavailabl e Encounter Details Date Type Department Care Team (Latest Contact Info) Description 06/10/2019 Abstract [facility] CONVERSIONS Dental, Provider, DDS Social History Tobacco Use Types Packs/Day Years Used Date Smoking Tobacco: Never Assessed Comments Unknown Sex and Gender Information Value Date Recorded Sex Assigned at Female 10/04/2022 7:00 PM EDT Legal Sex Female 5:36 PM EDT Gender Identity Not on file Sexual Orientation Not on file documented as of this encounter Plan of Treatment Not on file documented as of this encounter Visit Diagnoses Not on filedocumented in this encounter
--- OUTSIDE RECORDS SUMMARY | 2025-02-09 17:16 | XMS_ITS ---
Author Organization Jason Orantes MD Address [address] [place] [phone] Care Team Providers Care Block Operator Name Role Phone Lamberto Jason Primary Care Provider [phone] Medications Medication SIG (Take, Route, Frequency, Duration) Notes Start Date End Date Status MagOx 400 400 (240 Mg) MG 1 tablet with food Orally Once a day for 30 days 11/17/2024 Active Encounters Encounter Location Date Provider Diagnosis Jason Orantes MD [address] [place], [place] [phone] 01/11/2025 Jason Orantes Plan Of Treatment Medication Medication Name Sig Start Date Stop Date Notes MagOx 400 400 (240 Mg) MG 1 tablet with food Orally Once a day for 30 days 11/17/2024 Progress Notes * Bhavna BOB LDOB:[birth year] (84 yo F)Acc No.[id number]:01/11/2025 Patient:?Bhavna BOB :1940???Age:84 Y???Sex:Female Address:[facility], [place], [address] * Refills? Refill MagOx 400 Tablet, 400 (240 Mg) MG, Orally, 30 Tablet, 1 tablet with food, Once a day, 30 days * true * Date:? Generated for Kori white/Prisca/Tacosmitting on:?02/09/2025 05:16 PM EDT
--- OUTSIDE RECORDS SUMMARY | 2025-02-09 17:16 | XMS_ITS | Clinical Summary ---
Author Organization [employer] Address [address] [place] [address] [address] [place] [address] Care Team Providers Care Scrummaster Name Role Phone Unavailable Primary Care Provider Unavailabl e Social History Tobacco Use Types Packs/Day Years Used Date Smoking Tobacco: Never Assessed Comments Unknown Sex and Gender Information Value Date Recorded Sex Assigned at Female 10/04/2022 7:00 PM EDT Legal Sex Female 5:36 PM EDT Gender Identity Not on file Sexual Orientation Not on file Plan of Treatment Health Maintenance Due Date Last Done Comments Depression Screening 1940 Alcohol/Substance Use Screening 1954 Tobacco Screening 1954 DTaP/Tdap/Td Vaccines (1 - Tdap) 1961 Zoster Vaccines (1 of 2) 1992 Pneumococcal Vaccine: 50+ Ye ars (2 of 2 - PCV) 07/02/2013 07/02/2012 RSV Patients and Pa tients Aged 60 years or older (1 - 1-dose 75+ series) 2017 COVID-19 Vaccine ( - 2023-2 5 season) 2024 Influenza Vaccine (#1) 2024 HIB Vaccines Aged Out No longer eligi ble based on patient's age to complete this topic HPV Vaccines Aged Out No longer eligi ble based on patient's age to complete this topic Hepatitis A Vaccines Aged Out No long er eligible based on patient's age to complete this topic Hepatitis B Vaccines Aged Out No long er eligible based on patient's age to complete this topic IPV Vaccines Aged Out No longer eligi ble based on patient's age to complete this topic Meningococcal Vaccine Aged Out No delbert garrett eligible based on patient's age to complete this topic RSV under 20 months Aged Out No longe r eligible based on patient's age to complete this topic Rotavirus Vaccines Aged Out No longer eligible based on patient's age to complete this topic
--- OUTSIDE RECORDS SUMMARY | 2025-02-09 17:17 | XMS_ITS | Clinical Summary ---
Author Organization [facility] Address [address] [place] [address] [place] [id number] Phone Care Team Providers Care Particle Board Supervisor Name Role Phone Jason Orantes MD Primary Care Provider Allergies No known active allergies Medications doxazosin (CARDURA) 4 MG tablet Take 1 tablet by mouth 1 (one) time each day 4 Active losartan (COZAAR) 50 MG tablet Take 1 tablet by mouth 2 (two) times a day 4 Active loratadine (CLARITIN) 10 MG tablet Take 1 tablet by mouth 1 (one) time each day Active omeprazole (PriLOSEC) [address] capsule Take 1 capsule by mouth 1 (one) time each day Active spironolactone (ALDACTONE) 25 MG tablet Take 1 tablet by mouth 1 (one) time each day 4 Active FLUoxetine (PROzac) 20 MG capsule Take 20 mg by mouth 1 (one) time each day 2 Active budesonide (PULMICORT) 0.25 MG/2ML nebulizer solution Take 0.25 mg by nebulization 1 (one) time each day Rinse mouth with water after use to reduce aftertaste and incidence of candidiasis. Do not swallow. Active carvedilol (COREG) 25 MG tablet TAKE 1 TABLET BY MOUTH TWICE DAILY 180 tablet 3 3 Active Praluent 150 MG/ML solution auto-injector 3 Active aspirin (ST ANTHONY) 81 MG EC tablet Take 81 mg by mouth 1 (one) time each day Active Active Problems Problem Noted Date Diagnosed Date Hypertension 08/18/2021 Stage 3a chronic kidney disease 08/18/2021 Chronic kidney disease stage 2 08/17/2021 Hypertensive heart and renal disease with (congestive) heart failure 08/17/2021 Hypo-osmolality and or hyponatremia 08/17/2021 Renal artery stenosis 08/17/2021 Immunizations Name Administration Dates Next Due Pneumococcal Polysaccharide 07/02/2012 Family History Medical History Relation Comments Diabetes Father Hypertension Father Cancer Mother Hypertension Mother Hypertension Sibling 1 Heart disease Sibling 2 Relation Status Comments Father Mother Sibling 1 Sibling 2 Social History Tobacco Use Types Packs/Day Years Used Date Smoking Tobacco: Former Cigarettes Q uit: 12/02/2000 Smokeless Tobacco: Former Tobacco Cessation:Counseling Given: Not Answered Alcohol Use Standard Drinks/Week Comments Yes 0 (1 standard drink = 0.6 oz pure alcohol) Alcoholic Drinks/day: 1-2 drinks per day Comments Unknown Sex and Gender Information Value Date Recorded Sex Assigned at Not on file Legal Sex Female 5:10 PM EST Gender Identity Not on file Sexual Orientation Not on file Last Filed Vital Signs Vital Sign Reading Time Taken Comments Blood Pressure 118/60 05/29/2023 4:17 PM EDT Pulse 69 05/29/2023 4:17 PM EDT Temperature - - Respiratory Rate - - Oxygen Saturation 97% 05/23/2022 4:11 PM EDT Inhaled Oxygen Concentration - - Weight 77.5 kg (170 lb 12.8 oz) 05/29/2023 4:17 PM EDT Height 170.2 cm (5' 7 ) 07/06/2020 12:0 0 PM EDT Body Mass Index 26.75 07/06/2020 12:00 PM EDT Plan of Treatment Health Maintenance Due Date Last Done Comments Pneumococcal Vaccine: 65+ Ye ars (2 of 2 - PCV) 07/02/2013 07/02/2012 Influenza Vaccine (#1) 2024 Hepatitis B Vaccine Aged Out No longe r eligible based on patient's age to complete this topic Insurance MEDICARE [facility] [place]ICAID [place] [facility] MEDICAID [place] Care Teams Particle Board Supervisor Relationship Specialty Start Date End Date Jason Orantes MD [address] [place] [address] [address] [place] [address] PCP - General 12/12/20
--- OUTSIDE RECORDS SUMMARY | 2025-02-09 17:17 | XMS_ITS ---
Author Organization Jason Orantes MD Address [address] [place] [phone] Care Team Providers Care Clinical Data Associate Name Role Phone Lamberto Jason Primary Care Provider Medications Medication SIG (Take, Route, Frequency, Duration) Notes Start Date End Date Status MagOx 400 400 (240 Mg) MG 1 tablet with food Orally Once a day for 30 days 11/17/2024 Active Encounters Encounter Location Date Provider Diagnosis Jason Orantes MD [address] [place], [place] [phone] 01/08/2025 Jason Orantes Plan Of Treatment Medication Medication Name Sig Start Date Stop Date Notes MagOx 400 400 (240 Mg) MG 1 tablet with food Orally Once a day for 30 days 11/17/2024 Progress Notes * Bhavna BOB LDOB:[birth year] (84 yo F)Acc No.[id number]:01/08/2025 Patient:?Bhavna BOB :1940???Age:84 Y???Sex:Female Address:[facility] [address] [facility], [place], [address] * Refills? Continue MagOx 400 Tablet, 400 (240 Mg) MG, Orally, 30 Tablet, 1 tablet with food, Once a day, 30 days * true * Date:? Generated for Kori white/Prisca/eTpaulsmitting on:?02/09/2025 05:16 PM EDT
--- OUTSIDE RECORDS SUMMARY | 2025-02-09 17:17 | XMS_ITS ---
Author Organization Jason Orantes MD Address [address] [place] [phone] Care Team Providers Care Commercial Estimator Name Role Phone Lamberto Jason Primary Care Provider Medications Medication SIG (Take, Route, Frequency, Duration) Notes Start Date End Date Status Amoxicillin-Pot Clavulanate 875-125 MG 1 tablet Orally every 12 hrs for 10 days 01/08/2025 Active Encounters Encounter Location Date Provider Diagnosis Jason Orantes MD [address] [place] [phone] 01/08/2025 Jason Orantes Plan Of Treatment Medication Medication Name Sig Start Date Stop Date Notes Amoxicillin-Pot Clavulanate 875-125 MG 1 tablet Orally every 12 hrs for 10 days 01/08/2025 Progress Notes * Bhavna BOB LDOB:[birth year] (84 yo F)Acc No.[id number]:01/08/2025 Patient:?Bhavna BOB :1940???Age:84 Y???Sex:Female Address:[facility] [address], [place] [address], [place], [address] * Refills? Start Amoxicillin-Pot Clavulanate Tablet, 875-125 MG, Orally, 20 Tablet, 1 tablet, every 12 hrs, 10 days * true * Date:? Generated for Kori white/Prisca/eTransmitting on:?02/09/2025 05:17 PM EDT
== END 2025-02-09 14:54 | disposition home or self-care (01) ==
PROVIDERS: PCP Internal Medicine; Visit Provider Hospitalist
DX: Z23 Encounter for immunization (principal); J43.2 Centrilobular emphysema; J96.11 Chronic respiratory failure with hypoxia; J98.11 Atelectasis; I27.81 Cor pulmonale (chronic)
CPT/HCPCS: 99214

== ENCOUNTER → 2025-02-09 14:05 | Outpatient (BNVA) | payer MEDICARE, SELFPAY | PROVIDERS: PCP Internal Medicine; Visit Provider Hospitalist | DX: J43.2 Centrilobular emphysema (principal); J96.11 Chronic respiratory failure with hypoxia; J98.11 Atelectasis; I27.20 Pulmonary hypertension, unspecified; Z99.81 Dependence on supplemental oxygen; Z23 Encounter for immunization | CPT/HCPCS: 90471; 90677; 99212 ==

== ENCOUNTER 2025-03-02 16:49 | Inpatient (IN) | payer MEDICARE, SELFPAY ==
[2025-03-02] VITALS (14 sets, daily range): BP systolic 116–191; BP diastolic 49–78; PULSE 60–79; RESP 18–24; TEMP 36.4; O2SAT 91–97; BMI 23.8
--- NOTE | ~2025-03-02 | XR_ITS ---
CLINICAL HISTORY: low o2 copd 1 view chest x-ray Comparison: DX/SR - XR CHEST 2V - 06/29/24 14:51 EDT Findings: The lungs are clear. Normal size heart. No acute fracture. IMPRESSION: 1. No acute findings. This document has been electronically signed by: Altagracia Meyer MD on 03/02/2025 17:24:11
--- NOTE | ~2025-03-02 | CT_ITS ---
CLINICAL HISTORY: near syncope, hypoxic CT angiography chest with contrast. 3D Postprocessing. Comparison: CR - XR CHEST 1V - 03/02/25 17:14 EDT Findings: The heart size is normal. RV/LV ratio is normal. Moderate atherosclerotic calcification of the thoracic aorta and coronary arteries. No acute pulmonary embolus. The visualized thyroid and mediastinum are unremarkable. No consolidation or effusion. Moderate centrilobular emphysema of both lungs. The upper abdomen is unremarkable. The bones are intact. IMPRESSION: 1. No pulmonary emboli. No acute aortic syndrome. 2. Moderate centrilobular emphysema of both lungs. Lungs are otherwise clear. This document has been electronically signed by: Alexsander Noble MD on 03/02/2025 22:06:11
--- NOTE | 2025-03-02 17:00 | ECG_ITS ---
Test Reason : hypotension Blood Pressure : */* mmHG Vent. Rate : 66 BPM Atrial Rate : 66 BPM P-R Int : 200 ms QRS Dur : 148 ms QT Int : 458 ms P-R-T Axes : 68 268 39 degrees QTcB Int : 480 ms Normal sinus rhythm Right bundle branch block Abnormal ECG When compared with ECG of 11-Sep-2024 23:25, No significant changes seen Referred By: Kaila James Electronically Signed By: MASON SCHWARZ
--- NOTE | 2025-03-02 17:01 | ED_ITS ---
HPI - Syncope General Chief Complaint: Syncope Stated Complaint: weakness Time Seen by Provider: 03/02/25 17:00 Source: patient and EMS Mode of arrival: EMS Limitations: no limitations History of Present Illness ED Provider: Dr. Kaila James HPI narrative: Patient comes to the emergency room via ambulance complaining of an episode of hypotension. According to the staff at the assisted living facility, patient has known multiple episodes of hypotension. Patient states that this happened frequently. Patient states that every time that she brings to the hospital nobody find anything wrong with her and they sent her right back. Patient denies any chest pain or shortness of breath at this time. Patient denies any recent URI or UTI symptoms. Denies fever chills. Patient states that this episode of hypotension lasted a few minutes that she recovered quickly. according to EMS, patient was pale and diaphoretic, and by the time that they put the patient into the ambulance she had fully recovered. Related Data Home Medications ?Medication ?Instructions ?Recorded ?Confirmed albuterol sulfate 90 mcg/actuation 2 puff PO Q6H PRN Shortness Of 08/03/21 11/16/24 aerosol inhaler Breath Or Wheezing aspirin 81 mg tablet,delayed 81 mg PO DAILY 08/03/21 11/16/24 release omeprazole 20 mg capsule,delayed 20 mg PO DAILY@0630 08/03/21 11/16/24 release spironolactone 25 mg tablet 25 mg PO DAILY@1200 08/03/21 11/16/24 fluoxetine 20 mg capsule 20 mg PO DAILY 03/02/22 11/16/24 Oxygen Home Use 02/22/23 11/16/24 nebulizers 02/22/23 11/16/24 ipratropium 0.5 mg-albuterol 3 mg 3 ml inhalation QID 09/12/24 11/16/24 (2.5 mg base)/3 mL nebulization soln loratadine 10 mg tablet 10 mg PO DAILY 09/12/24 11/16/24 (Allerclear) doxazosin 4 mg tablet 2 mg PO BEDTIME@2300 11/11/24 11/16/24 carvedilol 25 mg tablet 12.5 mg PO BID 02/09/25 losartan 25 mg tablet 25 mg PO DAILY 02/09/25 Previous Rx's ?Medication ?Instructions ?Recorded budesonide 0.25 mg/2 mL suspension 0.25 mg (2 mL) inhalation BID 30 06/29/24 for nebulization days #120 mL furosemide 40 mg tablet (Lasix) 40 mg PO .3 times a week #14 tabs 11/11/24 albuterol sulfate 2.5 mg/3 mL 2.5 mg (3 mL) inhalation BID 30 11/16/24 (0.083 %) solution for nebulization days #180 mL prednisone 5 mg tablet 5 mg PO DAILY 30 days #30 tabs 12/04/24 alirocumab 150 mg/mL subcutaneous 1 mg (0.0067 mL) subcut Q2W #2 mL 01/25/25 pen injector (Praluent Pen) Allergies Allergy/AdvReac Type Severity Reaction Status Date / Time atorvastatin [Lipitor] Allergy Severe only oral Verified 03/02/25 16:59 hydralazine [HYDRALAZINE] Allergy Severe VOMITING, Verified 03/02/25 16:59 SYNCOPE labetalol [LABETALOL] Allergy Unknown SYNCOPE Verified 03/02/25 16:59 lisinopril [LISINOPRIL] Allergy Unknown HAIR FALLS Verified 03/02/25 16:59 OUT metoprolol [METOPROLOL] Allergy Unknown HAIR FALLS Verified 03/02/25 16:59 OUT penicillin V Allergy Unknown yeast Verified 03/02/25 16:59 infections Review of Systems 2 Review of Systems: Constitutional : No Weight loss, No Fever, No Chills, No Night Sweats, No Fatigue, No Malaise ENT/Mouth : No Hearing loss, No Ear Pain, No Nasal Congestion, No Sinus Pain, No Hoarseness, No sore throat, No Rhinorrhea, No Swallowing Difficulty Eyes: No Eye Pain, No Swelling, No Redness, No Foreign Body, No Discharge, No Vision Changes Cardiovascular : No Chest Pain, No SOB, No Dyspnea on Exertion, No Orthopnea, No Edema, No Palpitations , complaining of 1 episode of low blood pressure Respiratory : No Cough, No Sputum, No Wheezing, No Smoke Exposure, No Dyspnea Gastrointestinal : No Nausea, No Vomiting, No Diarrhea, No Constipation, No abdominal Pain, No Hematochezia, No Melena Genitourinary : no irregular bleeding, No Dysuria, No Urinary Frequency, No Hematuria, No Urinary Incontinence, No Urgency, No Flank Pain, No Urinary Flow Changes, No Hesitancy Musculoskeletal : No joint pain, No Myalgias, No Joint Swelling Skin : No Skin Lesions, No rash Neuro : No Weakness, No Numbness, No Paresthesias, No Loss of Consciousness, No Dizziness, No Headache Psych : No Anxiety/Panic, No Depression, No SI/HI/AH/VH, No Social Issues, Heme/Lymph: No Bruising, No Bleeding,No Lymphadenopathy Endocrine : No Polyuria, No Polydipsia, No Temperature Intolerance [facility] Past Medical History Medical History Cor pulmonale Cough History of sepsis (~01/2017) Hyperlipidemia Hypertension Former smoker, stopped smoking in distant past CAD (coronary artery disease) Osteoporosis (~2018) Stenosis of middle cerebral artery History of TIAs History of CVA (cerebrovascular accident) (~07/2017) Dyspnea Atelectasis Chronic hypoxemic respiratory failure COPD (chronic obstructive pulmonary disease) Surgical History History of heart artery stent (~2011) History of hand surgery (~2004) History of left knee replacement (~2014) History of arthroscopy of right knee (~2003) History of carpal tunnel surgery of left wrist (~1998) Family History Family History Brother CAD (coronary artery disease) Father CAD (coronary artery disease) Myocardial infarction Mother Leukemia Social History Social History Alcohol intake: current Alcohol type: wine and hard liquor Patient Tobacco Use Status: Former Tobacco user Tobacco use type: Cigarette Years Smoked: (1ppd x 40yrs, quit 2001) Advance Directives: Yes Advance Directives on File: Yes Advance Directives Date on File: 09/12/24 Physical Exam 2 Vital Signs: Vital Signs: Last Vital Signs Temp 97.6 F 03/02/25 16:56 Pulse 77 03/02/25 21:40 Resp 24 H 03/02/25 21:40 BP 141/75 H 03/02/25 19:10 Pulse Ox 92 03/02/25 18:27 O2 Del Method Nasal Cannula 03/02/25 18:27 O2 Flow Rate 2 03/02/25 18:27 Oxygen Flow Rate 2 03/02/25 16:56 BMI result Body Mass Index 23.8 Const: Other: Appearance: Alert. Oriented X3. No acute distress. Eyes: Pupils equal, round and reactive to light. ENT: Pharynx normal. Neck: Normal inspection. Neck supple. No lymph nodes noted. No crepitus CVS: Normal heart rate and rhythm. Pulses normal. Normal S1 and S2 Respiratory: No respiratory distress. Breath sounds normal. No Wheezing. No rales , on 2 L of oxygen Abdomen: Soft and nontender. No rigidity. No distention. Skin: Skin warm and dry. Normal skin color. Normal skin turgor. Extremities: No lower extremity edema. No Lacerations. No Rash Neuro: Oriented X 3. No motor deficit. No sensory deficit. Moving all extremities. No slurred speech. CN 2 through 12 grossly intact Psych: calm, cooperative, normal affect Course Course Course Narrative: Patient states that this drops and low blood pressure are familiar for her. Patient states that she has had multiple comprehensive workups and she usually gets discharge because nothing is found. At this time, patient states that she feels almost back to baseline. All of patient's labs imaging and EKG pending Medications Administered Discontinued Medications Generic Name Dose Route Start Last Admin Trade Name Freq PRN Reason Stop Dose Admin Acetylcysteine 200 mg 03/02/25 21:07 03/02/25 21:40 Acetylcysteine 10 % 400 Mg/4 Ml Vial INHALE 03/02/25 21:08 200 mg ONCE ONE Administration Albuterol Sulfate 2.5 mg 03/02/25 21:07 03/02/25 21:38 Albuterol Sulfate (0.083%) 2.5 Mg/3 Ml Vial.Neb INHALE 03/02/25 21:08 2.5 mg ONCE ONE Administration Budesonide 1 mg 03/02/25 18:52 03/02/25 19:30 Budesonide 0.5 Mg/2 Ml Ampul.Neb INHALE 03/02/25 18:53 1 mg ONCE ONE Administration Iohexol 65 ml 03/02/25 21:35 03/02/25 21:35 Iohexol 350 Mg/Ml 100 Ml Infus..Btl IV 03/02/25 21:36 65 ml ONCE ONE Administration Medical Decision Making Medical Decision Making [facility] Narrative: my interpretation of labs: No significant abnormality in patient's hematology other than slightly decreased white blood cell count, chemistry at baseline, chronic hyponatremia at 01:30, creatinine slightly elevated at 0.45, normal LFTs, normal troponin, normal BNP, no significant abnormality on patient's blood gases, serology test positive for COVID patient's chest x-ray does not show any acute abnormality. Patient known to use O2 at home. However, patient's oxygen saturation dropped to 85% on 4 L nasal cannula. Patient was switched over to OxyMask, oxygen improved to the low 90s patient's CT scan for pulmonary embolism was negative for PE. No infiltrates patient was given IV dexamethasone. patient has not had any fever, no hypotension or tachycardia. Sepsis is not suspected. I discussed with the patient and her daughter that hospitalization is recommended to the drop in oxygen in the new diagnosis of COVID. Both agreeable with the plan I discussed the patient with Dr. Stout, patient being admitted Differential Diagnosis Differential Diagnoses: The differential diagnosis associated with the presentation includes ( COVID, pneumonia, CHF, CAD, orthostatic hypotension) Admission/Observation Consideration of admission/observation: Escalation of care including admission/observation considered Consult Healthcare Provider Management of the patient was discussed with: Hospitalist Lab Data [facility] Lab Attestation statement: I reviewed the patient's lab results. 03/02/25 17:07 03/02/25 17:07 Labs: Lab Results 03/02/25 03/02/25 03/02/25 Range/Units 17:07 17:09 17:14 WBC 3.8 L (4.8-10.8) X10*3/uL RBC 4.49 (4.20-5.50) X10*6/uL Hgb 13.0 (12.0-16.0) g/dl Hct 39.1 (37.0-47.0) % MCV 87.1 (80.0-98.0) fL MCH 29.0 (27.0-33.0) pg MCHC 33.2 (31.0-35.0) g/dl RDW 14.0 (11.0-16.0) % Plt Count 219 D (160-400) X10*3/uL MPV 9.4 (9.4-12.3) fL Immature Gran % (Auto) 0.5 H (0.0-0.4) % Neut % (Auto) 57.3 (45-73) % Lymph % (Auto) 24.9 (20-40) % Whitley % (Auto) 16.5 H (2-11) % Eos % (Auto) 0.3 (0-4) % Baso % (Auto) 0.5 (0-2) % Lymph # (Auto) 1.0 L (1.2-4.9) X10*3/uL Whitley # (Auto) 0.6 (0.1-1.2) X10*3/uL Eos # (Auto) 0.0 (0.0-0.4) X10*3/uL Baso # (Auto) 0.0 (0.0-0.2) X10*3/uL Abs Immat Gran (auto) 0.02 (0.00-0.03) X10*3/uL Absolute Neuts (auto) 2.2 (2.0-8.3) x10*3/uL Absolute Nucleated RBC 0.000 (0.0-0.012) X10*3/uL Nucleated RBC % (auto) 0.0 (0.0-0.2) /100WBC VBG pH 7.34 (7.32-7.43) VBG pCO2 53 mmHg VBG pO2 35 mmHg VBG HCO3 29 H (22-26) mmol/L VBG O2 Saturation 49.0 % VBG Base Excess 2.6 mmol/L Sodium 130 L (135-145) mmol/L Potassium 3.9 (3.3-5.1) mmol/L Chloride 94 L (96-108) mmol/L Carbon Dioxide 27 (22-29) mmol/L Anion Gap 13 (12-20) BUN 26 H (9-16) mg/dL Creatinine 1.45 H (0.5-1.4) mg/dL Estim Creat Clear Calc 28.0 Estimated GFR 35 Random Glucose 105 (60-115) mg/dL Calcium 9.1 (8.4-10.2) mg/dL Total Bilirubin 0.5 (0.0-1.0) mg/dL Direct Bilirubin 0.2 (0.0-0.5) mg/dL AST 29 (5-31) U/L ALT 10 (0-31) U/L Alkaline Phosphatase 61 (39-117) U/L Troponin I High Sens 9.0 (<3.5-17.0) ng/L B-Natriuretic Peptide 18 (<100) pg/mL Total Protein 6.9 (6.5-8.0) g/dL Albumin 4.0 (3.5-5.0) g/dL Influenza Type A (PCR) NEGATIVE (Negative) Influenza Type B (PCR) NEGATIVE (Negative) RSV RNA Qual (PCR) NEGATIVE (Negative) SARS-CoV-2 RNA (RT-PCR) POSITIVE A (Negative) Independent Interpretation I performed an independent interpretation of an: Plain X-Ray and CT Scan Radiology Impression Discussion of test interpretation with radiology: I have reviewed the radiologist's reading. Radiologist Impression: The heart size is normal. RV/LV ratio is normal. Moderate atherosclerotic calcification of the thoracic aorta and coronary arteries. No acute pulmonary embolus. The visualized thyroid and mediastinum are unremarkable. No consolidation or effusion. Moderate centrilobular emphysema of both lungs. The upper abdomen is unremarkable. The bones are intact. IMPRESSION: 1. No pulmonary emboli. No acute aortic syndrome. 2. Moderate centrilobular emphysema of both lungs. Lungs are otherwise clear. Independent Historian Clinical information obtained from an independent historian. History obtained from or confirmed by: Other ( patient's daughter) Discharge Plan Discharge Clinical Impression: COVID-19 Patient Disposition: Admitted As Inpatient Prescriptions: No Action prednisone 5 mg tablet 5 mg PO DAILY 30 Days Qty: 30 3RF Praluent Pen 150 mg/mL pen injector 1 mg subcut Q2W Qty: 2 11RF ipratropium-albuterol 0.5 mg-3 mg(2.5 mg base)/3 mL solution for nebulization 3 ml inhalation QID loratadine [Allerclear] 10 mg Tablet 10 mg PO DAILY omeprazole 20 mg capsule,delayed release(DR/EC) 20 mg PO DAILY@0630 spironolactone 25 mg tablet 25 mg PO DAILY@1200 albuterol sulfate 90 mcg/actuation HFA aerosol inhaler 2 puff PO Q6H PRN (Reason: Shortness Of Breath Or Wheezing) aspirin 81 mg tablet,delayed release (DR/EC) 81 mg PO DAILY doxazosin 4 mg tablet 2 mg PO BEDTIME@2300 fluoxetine 20 mg capsule 20 mg PO DAILY (DME) nebulizers Misc See Rx Instructions .Route Rx Instructions: As directed (DME) Oxygen Home Use Kit See Rx Instructions .Route Rx Instructions: As directed furosemide [Lasix] 40 mg tablet 40 mg PO .3 times a week Qty: 14 5RF albuterol sulfate 2.5 mg /3 mL (0.083 %) solution for nebulization 2.5 mg inhalation BID 30 Days Qty: 180 11RF carvedilol 25 mg tablet 12.5 mg PO BID losartan 25 mg tablet 25 mg PO DAILY budesonide 0.25 mg/2 mL suspension for nebulization 0.25 mg inhalation BID 30 Days Qty: 120 11RF Print Language: Polish
[2025-03-02 17:14] LABS: MANUAL DIFF FLAG NO
[2025-03-02 17:17] LABS: Venous Blood Gas Refer to POC result
[2025-03-02 17:18] LABS: VBG Base Excess 2.6 mmol/L; VBG HCO3 29 mmol/L (22-26); VBG pCO2 53 mmHg; VBG pH 7.34 (7.32-7.43); VBG pO2 35 mmHg
[2025-03-02 17:19] LABS: Basophils Percent Auto 0.5 % (0-2); Eosinophils Percent Auto 0.3 % (0-4); Hematocrit 39.1 % (37.0-47.0); Imm Gran Abs Auto 0.02 X10*3/uL (0.00-0.03); Imm Gran Pct Auto 0.5 % (0.0-0.4); Lymphocytes Percent Auto 24.9 % (20-40); Mean Corpuscular HGB Conc 33.2 g/dl (31.0-35.0); Mean Corpuscular Volume 87.1 fL (80.0-98.0); Mean Platelet Volume 9.4 fL (9.4-12.3); Monocytes Absolute Auto 0.6 X10*3/uL (0.1-1.2); Monocytes Percent Auto 16.5 % (2-11); Neutrophils Absolute Auto 2.2 x10*3/uL (2.0-8.3); Neutrophils Percent Auto 57.3 % (45-73); Platelet Count 219 X10*3/uL (160-400); Red Blood Count 4.49 X10*6/uL (4.20-5.50); White Blood Count 3.8 X10*3/uL (4.8-10.8)
[2025-03-02 17:47] LABS: Alanine Aminotransferase 10 U/L (0-31); Alkaline Phosphatase 61 U/L (39-117); Anion Gap 13 (12-20); Aspartate Amino Transferase 29 U/L (5-31); Bilirubin Direct 0.2 mg/dL (0.0-0.5); Bilirubin Total 0.5 mg/dL (0.0-1.0); Blood Urea Nitrogen 26 mg/dL (9-16); Calcium 9.1 mg/dL (8.4-10.2); Carbon Dioxide 27 mmol/L (22-29); Chloride 94 mmol/L (96-108); Estimated Glomerular Filt Rate 35; Glucose Random 105 mg/dL (60-115); Potassium 3.9 mmol/L (3.3-5.1); Sodium 130 mmol/L (135-145); Total Protein 6.9 g/dL (6.5-8.0)
[2025-03-02 17:57] LABS: B Type Natriuretic Peptide 18 pg/mL (<100)
[2025-03-02 18:11] LABS: Influenza A PCR NEGATIVE (Negative); Influenza B PCR NEGATIVE (Negative); Resp Syncy Virus RNA Qual PCR NEGATIVE (Negative); SARS COV2 PCR INHOUSE POSITIVE (Negative)
--- OUTSIDE RECORDS SUMMARY | 2025-03-02 19:14 | XMS_ITS | Clinical Summary ---
Author Organization [employer] Address [address] [place] [address] [address] [place] [address] Care Team Providers Care Plasma Processing Centrifuge Operator Name Role Phone Unavailable Primary Care Provider [...]
--- OUTSIDE RECORDS SUMMARY | 2025-03-02 19:14 | XMS_ITS | Encounter Summary ---
Author Organization [employer] [facility] Address [address] [place] [address] [address] [place] [address] Care Team Providers Care Biomedical Equipment Technician Name Role Phone Unavailable Primary Care Provider [...]
--- OUTSIDE RECORDS SUMMARY | 2025-03-02 19:14 | XMS_ITS | Clinical Summary ---
Author Organization [facility] Address [address] [place] [address] [place] [id number] Phone Care Team Providers Care Position Description Manager Name Role Phone Jason Orantes MD Primary [...] age to complete this topic Insurance MEDICARE [facility] [place]ID [place] MEDICARE [facility] [place]ICAID [place] Care Teams Position Description Manager Relationship Specialty Start Date End Date Jason Orantes MD [address] [place] [address] [address] [place] [address] PCP - General 12/12/20
--- OUTSIDE RECORDS SUMMARY | 2025-03-02 19:14 | XMS_ITS ---
Author Organization Jason Orantes MD Address [address] [place] [phone] Care Team Providers Care Account Relationship Manager Name Role Phone Lamberto Jason Primary Care Provider Medications Medication SIG (Take, Route, Frequency, Duration) Notes Start Date End Date Status Amoxicillin-Pot Clavulanate 875-125 MG 1 tablet Orally every 12 hrs for 10 days 01/08/2025 Active Encounters Encounter Location Date Provider Diagnosis Jason Orantes MD [address] [place] [phone] 01/08/2025 Jason Orantes Plan Of Treatment Medication Medication Name Sig Start Date Stop Date Notes Amoxicillin-Pot Clavulanate 875-125 MG 1 tablet Orally every 12 hrs for 10 days 01/08/2025 Progress Notes * Bhavna BOB LDOB:[birth year] (84 yo F)Acc No.[id number]:01/08/2025 Patient:?Bhavna BOB :1940???Age:84 Y???Sex:Female Address:[facility] [address] [address], [place], [address] * Refills? Start Amoxicillin-Pot Clavulanate Tablet, 875-125 MG, Orally, 20 Tablet, 1 tablet, every 12 hrs, 10 days * true * Date:? Generated for Kori white/Prisca/eTransmitting on:?03/02/2025 07:14 PM EDT
--- OUTSIDE RECORDS SUMMARY | 2025-03-02 19:14 | XMS_ITS ---
Author Organization Jason Orantes MD Address [address] [place] [phone] Care Team Providers Care Cigarette Package Examiner Name Role Phone LambertoFerminn Primary Care Provider Medications Medication SIG (Take, Route, Frequency, Duration) Notes Start Date End Date Status MagOx 400 400 (240 Mg) MG 1 tablet with food Orally Once a day for 30 days 11/17/2024 Active Encounters Encounter Location Date Provider Diagnosis Jason Orantes MD [address] [place], [place] [phone] 01/08/2025 Jason Orantes Plan Of Treatment Medication Medication Name Sig Start Date Stop Date Notes MagOx 400 400 (240 Mg) MG 1 tablet with food Orally Once a day for 30 days 11/17/2024 Progress Notes * Bhavna BOB LDOB:[birth year] (84 yo F)Acc No.[id number]:01/08/2025 Patient:?Bhavna BOB :1940???Age:84 Y???Sex:Female Address:[facility] [address] [facility] [place], [place], [address] * Refills? Continue MagOx 400 Tablet, 400 (240 Mg) MG, Orally, 30 Tablet, 1 tablet with food, Once a day, 30 days * true * Date:? Generated for Kori white/Prisca/eTransmitting on:?03/02/2025 07:14 PM EDT
--- OUTSIDE RECORDS SUMMARY | 2025-03-02 19:14 | XMS_ITS ---
Author Organization Jason Orantes MD Address [address] [place] [phone] Care Team Providers Care Plastic Card Grader Cardroom Name Role Phone Lamberto Jason Primary Care Provider Medications Medication SIG (Take, Route, Frequency, Duration) Notes Start Date End Date Status MagOx 400 400 (240 Mg) MG 1 tablet with food Orally Once a day for 30 days 11/17/2024 Active Encounters Encounter Location Date Provider Diagnosis Jason Orantes MD [address] [place], [place] [phone] 01/11/2025 Jason Orantes Plan Of Treatment Medication Medication Name Sig Start Date Stop Date Notes MagOx 400 400 (240 Mg) MG 1 tablet with food Orally Once a day for 30 days 11/17/2024 Progress Notes * Bhavna BOB LDOB:[birth year] (84 yo F)Acc No.[id number]:01/11/2025 Patient:?Bhavna BOB :1940???Age:84 Y???Sex:Female Address:[facility] [address] [facility], [place], [address] * Refills? Refill MagOx 400 Tablet, 400 (240 Mg) MG, Orally, 30 Tablet, 1 tablet with food, Once a day, 30 days * true * Date:? Generated for Kori white/Prisca/eTpaulsmitting on:?03/02/2025 07:13 PM EDT
[2025-03-02] MEDS: Budesonide 0.5 MG/2 ML AMPUL.NEB 1 MG INHALE (19:30)
--- NOTE | 2025-03-02 20:43 | PC.NURSE ---
Continue to await urine specimen collection. Patient aware of COVID+ diagnosis, per serology results obtained today. Precautions in place. Family member at bedside was given a mask.
--- NOTE | 2025-03-02 21:05 | PC.NURSE ---
Patient experienced episode of coughing, phlegm noted with cough. Oxygen saturation decreased to 80% on 2LPM via nasal cannula. Respiratory therapist (Doyle) & provider (Dr. James) contacted to come to bedside. Patient was briefly pale. Placed on oxymask with improvement. Plan for admit.
[2025-03-02] MEDS: iohexoL 350 MG/ML 100 ML INFUS..BTL 65 ML IV (21:35)
[2025-03-02] MEDS: Albuterol Sulfate (0.083%) 2.5 MG/3 ML VIAL.NEB INHALE (21:38)
[2025-03-02] MEDS: Acetylcysteine 10 % 400 MG/4 ML VIAL 200 MG INHALE (21:40)
--- NOTE | 2025-03-02 22:10 | PC.NURSE ---
Pharmacy to come to bedside to perform medication reconciliation.
--- NOTE | 2025-03-02 22:39 | PHA.MEDREC ---
Addendum entered by Manda Rob RPh 03/02/25 22:54: reviewed by [facility]. Original Note: Pharmacy Consult ? Medication Reconciliation Pharmacy has completed the medication reconciliation. Spoke with patients daughter at bedside who was able to confirm her moms medications. The daughter confirmed her mom was taking Praluent 150 mg/mL Pen once every 2 weeks and stated she did get it last 2 weeks ago but states that medication is now Non-Formulary her moms Dr wants her mom to come in and get blood work done and re-evaluated. The daughter confirmed her mom is now taking Carvedilol 25mg tabs and confirmed she now cuts them in half but states since cutting them the patient has had problems with her Blood Pressure and thinks that is why she is here today. The daughter confirmed her mom takes a Budesonide inhaler and Ipratropium-Albuterol inhaler she alternates twice a day. The daughter confirmed her mom is taking the Prednisone 5mg tab still and states her Dr is weaning off of it and her mom is now taking once every other day until told to stop or finished and states she took one this morning. The patient confirmed she took her medications this morning.
--- NOTE | 2025-03-02 22:46 | P.HPHOSP_ITS ---
History of Present Illness Date of Service: 03/02/25 Chief Complaint: Syncope This is a 84-year-old female with pertinent history of chronic hypoxemic respiratory failure due to COPD on 2 L supplemental oxygen, coronary artery disease, right heart failure, CKD stage 3, hypertension, gastroesophageal reflux disease who was brought to the emergency department for evaluation after a syncopal episode. Patient states she has had multiple episodes of passing out due to low blood pressure in the past. She was sitting when this happened. No chest pain or palpitations prior to the episode. No jerking movement of extremities. Patient endorses dry cough that has been ongoing for the last 4-5 days. Also admits decreased p.o. intake. No nausea or vomiting. No diarrhea. Denies fever, chills, abdominal pain, changes in urinary or bowel habits. In the emergency department, patient tested positive for COVID-19 and requiring 4 L supplemental oxygen. Review of Systems 2 Constitutional: Constitutional: Reports lethargy, Reports malaise, Reports poor appetite and Reports weakness Cardiovascular: Cardiovascular: Reports no additional cardiovascular complaints and Reports syncope Gastrointestinal: Gastrointestinal: Reports no additional gastrointestinal complaints Genitourinary: Genitourinary: Reports no additional female genitourinary complaints Neurologic: Reports syncope and Reports weakness [facility] Medical History Cor pulmonale Cough History of sepsis (~01/2017) Hyperlipidemia Hypertension Former smoker, stopped smoking in distant past CAD (coronary artery disease) Osteoporosis (~2018) Stenosis of middle cerebral artery History of TIAs History of CVA (cerebrovascular accident) (~07/2017) Dyspnea Atelectasis Chronic hypoxemic respiratory failure COPD (chronic obstructive pulmonary disease) Family History Brother CAD (coronary artery disease) Father CAD (coronary artery disease) Myocardial infarction Mother Leukemia Surgical History History of heart artery stent (~2011) History of hand surgery (~2004) History of left knee replacement (~2014) History of arthroscopy of right knee (~2003) History of carpal tunnel surgery of left wrist (~1998) Social History Alcohol intake: current Alcohol type: wine and hard liquor Patient Tobacco Use Status: Former Tobacco user Tobacco use type: Cigarette Years Smoked: (1ppd x 40yrs, quit 2001) Advance Directives: Yes Advance Directives on File: Yes Advance Directives Date on File: 09/12/24 Meds Allergies Allergy/AdvReac Type Severity Reaction Status Date / Time atorvastatin [Lipitor] Allergy Severe only oral Verified 03/02/25 16:59 hydralazine [HYDRALAZINE] Allergy Severe VOMITING, Verified 03/02/25 16:59 SYNCOPE labetalol [LABETALOL] Allergy Unknown SYNCOPE Verified 03/02/25 16:59 lisinopril [LISINOPRIL] Allergy Unknown HAIR FALLS Verified 03/02/25 16:59 OUT metoprolol [METOPROLOL] Allergy Unknown HAIR FALLS Verified 03/02/25 16:59 OUT penicillin V Allergy Unknown yeast Verified 03/02/25 16:59 infections Home Medications ?Medication ?Instructions ?Recorded ?Confirmed ?Last Taken ?Type albuterol sulfate 90 mcg/actuation 2 puff PO Q6H PRN Shortness Of 08/03/21 03/02/25 09/11/24 History aerosol inhaler Breath Or Wheezing aspirin 81 mg tablet,delayed 81 mg PO DAILY 08/03/21 03/02/25 03/02/25 History release omeprazole 20 mg capsule,delayed 20 mg PO DAILY@0630 08/03/21 03/02/25 03/02/25 History release spironolactone 25 mg tablet 25 mg PO DAILY 08/03/21 03/02/25 03/02/25 History fluoxetine 20 mg capsule 20 mg PO DAILY 03/02/22 03/02/25 03/02/25 History Oxygen Home Use 02/22/23 11/16/24 03/02/25 History nebulizers 02/22/23 11/16/24 03/02/25 History ipratropium 0.5 mg-albuterol 3 mg 3 ml inhalation BID 09/12/24 03/02/25 03/02/25 History (2.5 mg base)/3 mL nebulization soln loratadine 10 mg tablet 10 mg PO DAILY 09/12/24 03/02/25 03/02/25 History (Allerclear) doxazosin 4 mg tablet 2 mg PO BEDTIME@2300 11/11/24 03/02/25 03/02/25 History carvedilol 25 mg tablet 12.5 mg PO BID 02/09/25 03/02/25 03/02/25 History losartan 25 mg tablet 25 mg PO DAILY@1200 02/09/25 03/02/25 03/02/25 History albuterol sulfate 2.5 mg/3 mL 2.5 mg inhalation BID PRN 03/02/25 03/02/25 03/02/25 History (0.083 %) solution for nebulization Shortness Of Breath Or Wheezing furosemide 40 mg tablet (Lasix) 40 mg PO TUTHSA 03/02/25 03/02/25 03/02/25 History prednisone 5 mg tablet 5 mg PO Q48H 03/02/25 03/02/25 03/02/25 History Physical Exam 2 Vital Signs and Narrative: Vital Signs: Last Vital Signs Temp 97.6 F 03/02/25 16:56 Pulse 77 03/02/25 21:40 Resp 24 H 03/02/25 21:40 BP 141/75 H 03/02/25 19:10 Pulse Ox 92 03/02/25 18:27 O2 Del Method Nasal Cannula 03/02/25 18:27 O2 Flow Rate 2 03/02/25 18:27 Oxygen Flow Rate 2 03/02/25 16:56 BMI result Body Mass Index 23.8 Elderly female lying in bed in mild distress on supplemental oxygen Neck supple, no JVD Regular rate and rhythm, S1-S2 heard Bilateral wheezing present Abdomen soft nontender, no guarding, no rigidity Patient is awake, alert and oriented x3 ; no focal motor deficit Psych: Normal mood No pedal edema Results Labs 03/02/25 17:07 03/02/25 17:07 Labs: Laboratory Results - last 24 hr 03/02/25 03/02/25 03/02/25 17:07 17:09 17:14 MCV 87.1 MCH 29.0 MCHC 33.2 RDW 14.0 Plt Count 219 D MPV 9.4 Immature Gran % (Auto) 0.5 H Neut % (Auto) 57.3 Lymph % (Auto) 24.9 [place] % (Auto) 16.5 H Eos % (Auto) 0.3 Baso % (Auto) 0.5 Lymph # (Auto) 1.0 L [place] # (Auto) 0.6 Eos # (Auto) 0.0 Baso # (Auto) 0.0 Abs Immat Gran (auto) 0.02 Absolute Neuts (auto) 2.2 Absolute Nucleated RBC 0.000 Nucleated RBC % (auto) 0.0 VBG pH 7.34 VBG pCO2 53 VBG pO2 35 VBG HCO3 29 H VBG O2 Saturation 49.0 VBG Base Excess 2.6 Anion Gap 13 Estim Creat Clear Calc 28.0 Estimated GFR 35 Random Glucose 105 Calcium 9.1 Total Bilirubin 0.5 Direct Bilirubin 0.2 AST 29 ALT 10 Alkaline Phosphatase 61 B-Natriuretic Peptide 18 Total Protein 6.9 Albumin 4.0 Influenza Type A (PCR) NEGATIVE Influenza Type B (PCR) NEGATIVE RSV RNA Qual (PCR) NEGATIVE SARS-CoV-2 RNA (RT-PCR) POSITIVE A Assessment and Plan (1) Hypoxia: Status: Acute (2) COVID-19: Status: Acute (3) Acute kidney injury: Status: Acute Plan This is a 84-year-old female with pertinent history of chronic hypoxemic respiratory failure due to COPD on 2 L supplemental oxygen, coronary artery disease, right heart failure, CKD stage 3, hypertension, gastroesophageal reflux disease who was brought to the emergency department for evaluation after a syncopal episode. #. Acute on chronic hypoxemic respiratory failure due to COVID-19 infection leading to exacerbation of COPD: Will admit patient with supplemental oxygen. Wean as tolerated. Is on baseline 2 L. Initiated dexamethasone 6 mg daily. Scheduled and p.r.n. DuoNebs. Continue home inhalers. #. Acute kidney injury stage I on CKD stage 3: Resuscitating with IV crystalloids. Hold furosemide, spironolactone and losartan in the setting of YA #. Syncope: Will monitor on telemetry. Orthostatics in a.m. with crystalloid resuscitation #. Right heart failure/cor pulmonale: Hold diuretics as above. Continue carvedilol #. Gastroesophageal reflux disease: On PPI Med rec pending DNR/DNI DVT prophylaxis: Lovenox Admit as inpatient and will require two night minimum hospital stay for supplemental oxygen, monitoring of kidney function (as above), which is not possible in a lesser acute setting. Quality Stroke Does the patient have a stroke diagnosis?: No VTE Prior VTE?: No VTE Risk Level:: Medical - moderate - high VTE Device Contraindication: Treatment Not Indicated VTE Drug Contraindication: N/A - Med Ordered
[2025-03-03] VITALS (12 sets, daily range): BP systolic 100–161; BP diastolic 41–80; PULSE 63–91; RESP 16–20; TEMP 36.1–36.6; O2SAT 89–97
[2025-03-03] MEDS: Lactated Ringers 1,000 ML 999 ML IV (00:07)
[2025-03-03 00:08] LABS: Appearance Urine Turbid; Color Urine Dark Yellow; Glucose Urine UA Negative (Negative); Leukocyte Esterase Urine Moderate (2+) (Negative); Nitrite Urine Negative (Negative); PH 5.5 (5.0-9.0); Specific Gravity - Urine >= 1.030 (1.005-1.025); UMIC TRIGGER UACC YES; Urine Blood Moderate (2+) (Negative); Urine Ketones Trace mg/dL (Negative); Urine Protein 30 (1+) mg/dL (Neg-Trace)
[2025-03-03] MEDS: Enoxaparin Sodium 30 MG/0.3 ML SYRINGE SUBCUT ×2 (00:09→21:36)
[2025-03-03] MEDS: dexAMETHasone sod phosphate 4 MG/ML VIAL 6 MG IVPUSH (00:09)
[2025-03-03 00:25] LABS: Bacteria Urine 4+ (None Seen); Other Crystals Urine Present; UACC Culture Trigger YES
[2025-03-03 05:08] LABS: Hematocrit 36.6 % (37.0-47.0); Hemoglobin 12.5 g/dl (12.0-16.0); Mean Corpuscular HGB Conc 34.2 g/dl (31.0-35.0); Mean Corpuscular Hemoglobin 29.3 pg (27.0-33.0); Mean Corpuscular Volume 85.9 fL (80.0-98.0); Mean Platelet Volume 9.7 fL (9.4-12.3); Platelet Count 197 X10*3/uL (160-400); Red Blood Count 4.26 X10*6/uL (4.20-5.50); Red Cell Distribution Width 13.9 % (11.0-16.0); White Blood Count 4.1 X10*3/uL (4.8-10.8)
[2025-03-03 05:21] LABS: Anion Gap 16 (12-20); Blood Urea Nitrogen 26 mg/dL (9-16); Calcium 8.6 mg/dL (8.4-10.2); Carbon Dioxide 23 mmol/L (22-29); Chloride 95 mmol/L (96-108); Creatinine Clr Calc Pharmacy 33.2; Estimated Glomerular Filt Rate 42; Glucose Random 108 mg/dL (60-115); Potassium 3.9 mmol/L (3.3-5.1); Sodium 130 mmol/L (135-145)
[2025-03-03] MEDS: Albuterol/Iprat 2.5/0.5MG 3 ML AMPUL.NEB INHALE ×4 (08:17→19:29)
[2025-03-03] MEDS: dexAMETHasone 6 MG TABLET PO (08:45)
[2025-03-03] MEDS: 0.9 % Sodium Chloride Flush 3 ML SYRINGE IVFLUSH ×3 (08:45→21:37)
[2025-03-03] MEDS: Thiamine HCL 100 MG TABLET PO (09:04)
[2025-03-03] MEDS: Folic Acid 1 MG TABLET PO (09:04)
--- NOTE | 2025-03-03 09:37 | PC.NURSE ---
Pt alert and oriented, breathing even with some periods of increased SOB/WOB. Pt on 4L O2 Oxymask. Pt has no pain at this time. Used commode at bedside with no issues, brief is dry. Ate her breakfast independently. Pt took her meds whole with no issues this morning.
--- NOTE | 2025-03-03 10:07 | MHC.CM.PN ---
Met with patient in regards to discharge planning. Patient lives at [facility] assisted living facility, uses a walker for mobility and has a concentrator through [facility]. PCP verified. Copy of HCP verified to be on file. Patient states she has someone from [facility] that provides physical therapy for her. IMM explained and signed. Patient feels she will safely be able to return to her assisted living facility with a new referral to [facility]. She has been active with them in the past. Spoke with patient's daughter, Savannah, with approval from patient. Devaughn is from [facility]. He has been working with patient to assist getting her an electric wheelchair due to increasing mobility issues. Savannah reports patient moved into [facility] in October. Savannah does feel patient will require STR. [facility] is 1st choice. If patient is safe to return back to her apartment, Savannah feels [facility] would be appropriate. Referrals made to [facility] and [facility] so both can follow. Anticiapte phsycial therapy eval will be needed in order to determine a safe d/c plan. Continue to monitor for d/c needs.
--- NOTE | 2025-03-03 11:03 | PC.NURSE ---
Report received from JEREMY Frazier. Taken over care at this time.
--- NOTE | 2025-03-03 14:08 | P.PNIM_ITS ---
Subjective Subjective Date of Service: 03/03/25 Interval History: covid Review of Systems sob somewhat improving denies any chest pain Physical Exam 2 Vital Signs: Vital Signs: Last Vital Signs Temp 97.6 F 03/03/25 12:12 Pulse 67 03/03/25 12:12 Resp 16 03/03/25 12:12 BP 153/79 H 03/03/25 12:12 Pulse Ox 93 03/03/25 12:12 O2 Del Method Oxymask 03/03/25 12:12 O2 Flow Rate 4 03/02/25 23:58 Oxygen Flow Rate 2 03/02/25 16:56 BMI result Body Mass Index 23.8 Regular rate and rhythm, S1-S2 heard Bilateral wheezing present Abdomen soft nontender, no guarding, no rigidity Patient is awake, alert and oriented x3 ; no focal motor deficit Psych: Normal mood No pedal edema Objective Data Active Medications Acetaminophen (Acetaminophen 325 Mg Tablet) 650 mg PO Q6H PRN PRN Reason: Pain, Mild 1-3,fever,headache Albuterol/Ipratropium (Albuterol/Iprat 2.5/0.5mg 3 Ml Ampul.Neb) 3 ml INHALE RQ4H WHILE AWAKE COUNTS INCLUDE 234 BEDS AT THE [facility] Last Admin: 03/03/25 11:15 Dose: 3 ml Documented By: SLY Albuterol/Ipratropium (Albuterol/Iprat 2.5/0.5mg 3 Ml Ampul.Neb) 3 ml INHALE Q4H PRN PRN Reason: Wheezing Aspirin (Aspirin Enteric Coated 81 Mg Tablet.Dr) 81 mg PO DAILY COUNTS INCLUDE 234 BEDS AT THE [facility] Calcium Carbonate (Calcium Carbonate 750 Mg Tab.Chew) 750 mg PO Q4H PRN PRN Reason: Heartburn Carvedilol (Carvedilol 12.5 Mg Tablet) 12.5 mg PO BID COUNTS INCLUDE 234 BEDS AT THE [facility]; Protocol Dexamethasone (Dexamethasone 6 Mg Tablet) 6 mg PO DAILY COUNTS INCLUDE 234 BEDS AT THE [facility] Last Admin: 03/03/25 08:45 Dose: 6 mg Documented By: MILLI Doxazosin Mesylate (Doxazosin Mesylate 2 Mg Tablet) 2 mg PO BEDTIME@2300 COUNTS INCLUDE 234 BEDS AT THE [facility]; Protocol Enoxaparin Sodium (Enoxaparin Sodium 30 Mg/0.3 Ml Syringe) 30 mg SUBCUT Q24H COUNTS INCLUDE 234 BEDS AT THE [facility] Last Admin: 03/03/25 00:09 Dose: 30 mg Documented By: PRIYANKA Fluoxetine HCl (Fluoxetine Hcl 20 Mg Capsule) 20 mg PO DAILY COUNTS INCLUDE 234 BEDS AT THE [facility] Folic Acid (Folic Acid 1 Mg Tablet) 1 mg PO DAILY COUNTS INCLUDE 234 BEDS AT THE [facility] Last Admin: 03/03/25 09:04 Dose: 1 mg Documented By: MILLI Loratadine (Loratadine 10 Mg Tablet) 10 mg PO DAILY COUNTS INCLUDE 234 BEDS AT THE [facility] Magnesium Hydroxide (Milk Of Magnesia 30 Ml Oral.Susp) 30 ml PO DAILY PRN PRN Reason: Constipation Melatonin (Melatonin 3 Mg Tablet) 6 mg PO BEDTIME PRN PRN Reason: Insomnia Omeprazole (Omeprazole 20 Mg Capsule.Dr) 20 mg PO DAILY@0630 COUNTS INCLUDE 234 BEDS AT THE [facility] Ondansetron HCl (Ondansetron Hcl 4 Mg/2 Ml Vial) 4 mg IVPUSH Q8H PRN PRN Reason: Nausea and Vomiting Sodium Chloride (0.9 % Sodium Chloride Flush 3 Ml Syringe) 3 ml IVFLUSH QSHIFT COUNTS INCLUDE 234 BEDS AT THE [facility] Last Admin: 03/03/25 08:45 Dose: 3 ml Documented By: MILLI Thiamine HCl (Thiamine Hcl 100 Mg Tablet) 100 mg PO DAILY COUNTS INCLUDE 234 BEDS AT THE [facility] Last Admin: 03/03/25 09:04 Dose: 100 mg Documented By: MILLI Labs 03/03/25 04:35 03/03/25 04:35 Labs: Laboratory Results - last 24 hr 03/02/25 03/02/25 03/02/25 17:07 17:09 17:14 MCV 87.1 MCH 29.0 MCHC 33.2 RDW 14.0 Plt Count 219 D MPV 9.4 Immature Gran % (Auto) 0.5 H Neut % (Auto) 57.3 Lymph % (Auto) 24.9 [place] % (Auto) 16.5 H Eos % (Auto) 0.3 Baso % (Auto) 0.5 Lymph # (Auto) 1.0 L [place] # (Auto) 0.6 Eos # (Auto) 0.0 Baso # (Auto) 0.0 Abs Immat Gran (auto) 0.02 Absolute Neuts (auto) 2.2 Absolute Nucleated RBC 0.000 Nucleated RBC % (auto) 0.0 VBG pH 7.34 VBG pCO2 53 VBG pO2 35 VBG HCO3 29 H VBG O2 Saturation 49.0 VBG Base Excess 2.6 Anion Gap 13 Estim Creat Clear Calc 28.0 Estimated GFR 35 Random Glucose 105 Calcium 9.1 Total Bilirubin 0.5 Direct Bilirubin 0.2 AST 29 ALT 10 Alkaline Phosphatase 61 B-Natriuretic Peptide 18 Total Protein 6.9 Albumin 4.0 Urine Color Urine Appearance Urine pH Ur Specific [place] Urine Protein Urine Glucose (UA) Urine Ketones Urine Blood Urine Nitrite Ur Leukocyte Esterase Urine RBC Urine WBC Ur Squamous Epith Cells Other Crystals Urine Bacteria Hyaline Casts Influenza Type A (PCR) NEGATIVE Influenza Type B (PCR) NEGATIVE RSV RNA Qual (PCR) NEGATIVE SARS-CoV-2 RNA (RT-PCR) POSITIVE A 03/02/25 03/03/25 23:59 04:35 MCV 85.9 MCH 29.3 MCHC 34.2 RDW 13.9 Plt Count 197 MPV 9.7 Immature Gran % (Auto) Neut % (Auto) Lymph % (Auto) [place] % (Auto) Eos % (Auto) Baso % (Auto) Lymph # (Auto) [place] # (Auto) Eos # (Auto) Baso # (Auto) Abs Immat Gran (auto) Absolute Neuts (auto) Absolute Nucleated RBC 0.000 Nucleated RBC % (auto) 0.0 VBG pH VBG pCO2 VBG pO2 VBG HCO3 VBG O2 Saturation VBG Base Excess Anion Gap 16 Estim Creat Clear Calc 33.2 Estimated GFR 42 Random Glucose 108 Calcium 8.6 Total Bilirubin Direct Bilirubin AST ALT Alkaline Phosphatase B-Natriuretic Peptide Total Protein Albumin Urine Color Dark Yellow Urine Appearance Turbid Urine pH 5.5 Ur Specific [place] >= 1.030 H Urine Protein 30 (1+) H Urine Glucose (UA) Negative Urine Ketones Trace Urine Blood Moderate (2+) H Urine Nitrite Negative Ur Leukocyte Esterase Moderate (2+) H Urine RBC 6-10 H Urine WBC 6-10 Ur Squamous Epith Cells 6-10 Other Crystals Present Urine Bacteria 4+ Hyaline Casts 3-5 Influenza Type A (PCR) Influenza Type B (PCR) RSV RNA Qual (PCR) SARS-CoV-2 RNA (RT-PCR) Assessment and Plan (1) Hypoxia: Status: Acute (2) COVID-19: Status: Acute Plan 84-year-old female with pertinent history of chronic hypoxemic respiratory failure due to COPD on 2 L supplemental oxygen, coronary artery disease, right heart failure, CKD stage 3, hypertension, gastroesophageal reflux disease who was brought to the emergency department for evaluation after a syncopal episode. Acute on chronic hypoxemic respiratory failure due to COVID-19 infection leading to exacerbation of COPD: continue supplemental oxygen,dexamethasone 6 mg daily, DuoNebs. Continue home inhalers. Acute kidney injury stage I on CKD stage 3: Resuscitating with IV crystalloids. Hold furosemide, spironolactone and losartan in the setting of YA. ya improving Syncope: orthosatsis improved. with crystalloid resuscitation Right heart failure/cor pulmonale: Hold diuretics as above. Continue carvedilol Gastroesophageal reflux disease: On PPI ongoing need Acute on chronic hypoxemic respiratory failure due to COVID-19 infection leading to exacerbation of COPD-continue nebs,steriods ,oxygen. Quality Stroke Does the patient have a stroke diagnosis?: No VTE Prior VTE?: No VTE Risk Level:: Medical - moderate - high VTE Device Contraindication: Treatment Not Indicated VTE Drug Contraindication: N/A - Med Ordered
[2025-03-03] MEDS: carvediloL 12.5 MG TABLET PO (21:36)
[2025-03-03] MEDS: Doxazosin Mesylate 2 MG TABLET PO (21:36)
[2025-03-03] MEDS: Melatonin 3 MG TABLET 6 MG PO (21:36)
[2025-03-04] VITALS (14 sets, daily range): BP systolic 108–180; BP diastolic 55–83; PULSE 62–88; RESP 16–20; TEMP 36.2–37.1; O2SAT 90–95
[2025-03-04] MEDS: Omeprazole 20 MG CAPSULE.DR PO (04:30)
[2025-03-04] MEDS: Albuterol/Iprat 2.5/0.5MG 3 ML AMPUL.NEB INHALE ×4 (07:49→19:56)
[2025-03-04] MEDS: Folic Acid 1 MG TABLET PO (08:42)
[2025-03-04] MEDS: 0.9 % Sodium Chloride Flush 3 ML SYRINGE IVFLUSH (08:42)
[2025-03-04] MEDS: Loratadine 10 MG TABLET PO (08:42)
[2025-03-04] MEDS: Aspirin Enteric Coated 81 MG TABLET.DR PO (08:42)
[2025-03-04] MEDS: dexAMETHasone 6 MG TABLET PO (08:42)
[2025-03-04] MEDS: carvediloL 12.5 MG TABLET PO ×2 (08:42→22:04)
[2025-03-04] MEDS: Thiamine HCL 100 MG TABLET PO (08:42)
[2025-03-04] MEDS: FLUoxetine HCl 20 MG CAPSULE PO (08:43)
--- NOTE | 2025-03-04 12:13 | MHC.CM.PN ---
EMR reviewed and per MD rounds, pt is not medically cleared for discharge due to management of covid-19 infection/exacerbation of COPD. PT evaluated pt and recommend STR, [facility].
--- NOTE | 2025-03-04 16:36 | P.PNIM_ITS ---
Subjective Subjective Date of Service: 03/04/25 Interval History: covid Review of Systems Shortness of breaths somewhat improving but still very short of breath with exertion. Generalized weak Physical Exam 2 Vital Signs: Vital Signs: Last Vital Signs Temp 97.4 F 03/04/25 15:52 Pulse 72 03/04/25 16:07 Resp 18 03/04/25 16:07 BP 140/71 H 03/04/25 11:16 Pulse Ox 92 03/04/25 15:52 O2 Del Method Oxymask 03/04/25 15:52 O2 Flow Rate 2 03/04/25 15:52 Oxygen Flow Rate 2 03/02/25 16:56 BMI result Body Mass Index 23.8 Regular rate and rhythm, S1-S2 heard Bilateral wheezing present Abdomen soft nontender, no guarding, no rigidity Patient is awake, alert and oriented x3 ; no focal motor deficit Psych: Normal mood No pedal edema Objective Data Active Medications Acetaminophen (Acetaminophen 325 Mg Tablet) 650 mg PO Q6H PRN PRN Reason: Pain, Mild 1-3,fever,headache Albuterol/Ipratropium (Albuterol/Iprat 2.5/0.5mg 3 Ml Ampul.Neb) 3 ml INHALE RQ4H WHILE AWAKE [facility] Last Admin: 03/04/25 16:06 Dose: 3 ml Documented By: ANDIE Albuterol/Ipratropium (Albuterol/Iprat 2.5/0.5mg 3 Ml Ampul.Neb) 3 ml INHALE Q4H PRN PRN Reason: Wheezing Aspirin (Aspirin Enteric Coated 81 Mg Tablet.) 81 mg PO DAILY [facility] Last Admin: 03/04/25 08:42 Dose: 81 mg Documented By: BRANDEN Calcium Carbonate (Calcium Carbonate 750 Mg Tab.Chew) 750 mg PO Q4H PRN PRN Reason: Heartburn Carvedilol (Carvedilol 12.5 Mg Tablet) 12.5 mg PO BID [facility]; Protocol Last Admin: 03/04/25 08:42 Dose: 12.5 mg Documented By: BRANDEN Dexamethasone (Dexamethasone 6 Mg Tablet) 6 mg PO DAILY [facility] Last Admin: 03/04/25 08:42 Dose: 6 mg Documented By: BRANDEN Doxazosin Mesylate (Doxazosin Mesylate 2 Mg Tablet) 2 mg PO BEDTIME@2300 [facility]; Protocol Last Admin: 03/03/25 21:36 Dose: 2 mg Documented By: BRIAN Enoxaparin Sodium (Enoxaparin Sodium 30 Mg/0.3 Ml Syringe) 30 mg SUBCUT Q24H [facility] Last Admin: 03/03/25 21:36 Dose: 30 mg Documented By: BRIAN Fluoxetine HCl (Fluoxetine Hcl 20 Mg Capsule) 20 mg PO DAILY [facility] Last Admin: 03/04/25 08:43 Dose: 20 mg Documented By: BRANDEN Folic Acid (Folic Acid 1 Mg Tablet) 1 mg PO DAILY [facility] Last Admin: 03/04/25 08:42 Dose: 1 mg Documented By: BRANDEN Loratadine (Loratadine 10 Mg Tablet) 10 mg PO DAILY [facility] Last Admin: 03/04/25 08:42 Dose: 10 mg Documented By: BRANDEN Magnesium Hydroxide (Milk Of Magnesia 30 Ml Oral.Susp) 30 ml PO DAILY PRN PRN Reason: Constipation Melatonin (Melatonin 3 Mg Tablet) 6 mg PO BEDTIME PRN PRN Reason: Insomnia Last Admin: 03/03/25 21:36 Dose: 6 mg Documented By: BRIAN Omeprazole (Omeprazole 20 Mg Capsule.Dr) 20 mg PO DAILY@0630 [facility] Last Admin: 03/04/25 04:30 Dose: 20 mg Documented By: BRIAN Ondansetron HCl (Ondansetron Hcl 4 Mg/2 Ml Vial) 4 mg IVPUSH Q8H PRN PRN Reason: Nausea and Vomiting Sodium Chloride (0.9 % Sodium Chloride Flush 3 Ml Syringe) 3 ml IVFLUSH QSHIFT [facility] Last Admin: 03/04/25 08:42 Dose: 3 ml Documented By: BRANDEN Thiamine HCl (Thiamine Hcl 100 Mg Tablet) 100 mg PO DAILY [facility] Last Admin: 03/04/25 08:42 Dose: 100 mg Documented By: BRANDEN Labs 03/03/25 04:35 03/03/25 04:35 Microbiology Microbiology Results: Microbiology 03/02/25 23:59 Urine Culture - Final Urine clean catch - Clean Catch Midstream Assessment and Plan (1) Hypoxia: Status: Acute (2) COVID-19: Status: Acute Plan 84-year-old female with pertinent history of chronic hypoxemic respiratory failure due to COPD on 2 L supplemental oxygen, coronary artery disease, right heart failure, CKD stage 3, hypertension, gastroesophageal reflux disease who was brought to the emergency department for evaluation after a syncopal episode. Acute on chronic hypoxemic respiratory failure due to COVID-19 infection leading to exacerbation of COPD: continue supplemental oxygen,dexamethasone 6 mg daily, DuoNebs. Continue home inhalers. Acute kidney injury stage I on CKD stage 3: Resuscitating with IV crystalloids. Hold furosemide, spironolactone and losartan in the setting of YA. ya improving Syncope: orthosatsis : feels weak added ronak stockings Right heart failure/cor pulmonale: Hold diuretics as above. Continue carvedilol Gastroesophageal reflux disease: On PPI ongoing need Acute on chronic hypoxemic respiratory failure due to COVID-19 infection leading to exacerbation of COPD-continue nebs,steriods ,oxygen. Quality Stroke Does the patient have a stroke diagnosis?: No VTE Prior VTE?: No VTE Risk Level:: Medical - moderate - high VTE Device Contraindication: Treatment Not Indicated VTE Drug Contraindication: N/A - Med Ordered
[2025-03-04] MEDS: Doxazosin Mesylate 2 MG TABLET PO (22:03)
[2025-03-04] MEDS: Enoxaparin Sodium 30 MG/0.3 ML SYRINGE SUBCUT (22:07)
[2025-03-05] VITALS (8 sets, daily range): BP systolic 120–164; BP diastolic 60–90; PULSE 60–74; RESP 17–18; TEMP 36.2–36.3; O2SAT 94–97
[2025-03-05] MEDS: Omeprazole 20 MG CAPSULE.DR PO (06:43)
[2025-03-05] MEDS: dexAMETHasone 6 MG TABLET PO (09:06)
[2025-03-05] MEDS: Loratadine 10 MG TABLET PO (09:06)
[2025-03-05] MEDS: Folic Acid 1 MG TABLET PO (09:06)
[2025-03-05] MEDS: 0.9 % Sodium Chloride Flush 3 ML SYRINGE IVFLUSH (09:06)
[2025-03-05] MEDS: carvediloL 12.5 MG TABLET PO (09:06)
[2025-03-05] MEDS: Aspirin Enteric Coated 81 MG TABLET.DR PO (09:06)
[2025-03-05] MEDS: FLUoxetine HCl 20 MG CAPSULE PO (09:06)
[2025-03-05] MEDS: Thiamine HCL 100 MG TABLET PO (09:06)
--- NOTE | 2025-03-05 11:05 | MHC.CM.PN ---
EMR REVIEWED, PT W/SYNCOPE/ARF D/T COVID 19 NOT YET MEDICALLY CLEARED, ANTIC DC OVER W/E TO [facility], [facility] FOLLOWING W/BED OFFER, CM WILL CONT TO FOLLOW DC NEEDS.
[2025-03-05] MEDS: Albuterol/Iprat 2.5/0.5MG 3 ML AMPUL.NEB INHALE ×2 (11:11→15:35)
--- NOTE | 2025-03-05 13:13 | HO.PM.IMPN ---
Subjective Subjective Date of Service: 03/05/25 Interval History: covid Review of Systems sob seems somewhat improving ,generlaised weak orthostasis improving Physical Exam Vital Signs: Vital Signs: Last Vital Signs Temp 97.1 F 03/05/25 12:00 Pulse 65 03/05/25 12:00 Resp 18 03/05/25 12:00 BP 164/90 H 03/05/25 12:00 Pulse Ox 97 03/05/25 12:00 O2 Del Method Oxymask 03/05/25 12:00 O2 Flow Rate 3 03/05/25 12:00 Oxygen Flow Rate 2 03/02/25 16:56 BMI result Body Mass Index 23.8 Regular rate and rhythm, S1-S2 heard Bilateral wheezing present Abdomen soft nontender, no guarding, no rigidity Patient is awake, alert and oriented x3 ; no focal motor deficit Psych: Normal mood No pedal edema Objective Data Active Medications Acetaminophen (Acetaminophen 325 Mg Tablet) 650 mg PO Q6H PRN PRN Reason: Pain, Mild 1-3,fever,headache Albuterol/Ipratropium (Albuterol/Iprat 2.5/0.5mg 3 Ml Ampul.Neb) 3 ml INHALE RQ4H WHILE AWAKE [facility] Last Admin: 03/05/25 11:11 Dose: 3 ml Documented By: BRICE Albuterol/Ipratropium (Albuterol/Iprat 2.5/0.5mg 3 Ml Ampul.Neb) 3 ml INHALE Q4H PRN PRN Reason: Wheezing Aspirin (Aspirin Enteric Coated 81 Mg Tablet.) 81 mg PO DAILY [facility] Last Admin: 03/05/25 09:06 Dose: 81 mg Documented By: BRANDEN Calcium Carbonate (Calcium Carbonate 750 Mg Tab.Chew) 750 mg PO Q4H PRN PRN Reason: Heartburn Carvedilol (Carvedilol 12.5 Mg Tablet) 12.5 mg PO BID [facility]; Protocol Last Admin: 03/05/25 09:06 Dose: 12.5 mg Documented By: BRANDEN Dexamethasone (Dexamethasone 6 Mg Tablet) 6 mg PO DAILY [facility] Last Admin: 03/05/25 09:06 Dose: 6 mg Documented By: BRANDEN Doxazosin Mesylate (Doxazosin Mesylate 2 Mg Tablet) 2 mg PO BEDTIME@2300 [facility]; Protocol Last Admin: 03/04/25 22:03 Dose: 2 mg Documented By: BRIAN Enoxaparin Sodium (Enoxaparin Sodium 40 Mg/0.4 Ml Syringe) 40 mg SUBCUT Q24H [facility] Fluoxetine HCl (Fluoxetine Hcl 20 Mg Capsule) 20 mg PO DAILY [facility] Last Admin: 03/05/25 09:06 Dose: 20 mg Documented By: BRANDEN Folic Acid (Folic Acid 1 Mg Tablet) 1 mg PO DAILY [facility] Last Admin: 03/05/25 09:06 Dose: 1 mg Documented By: BRANDEN Furosemide (Furosemide 40 Mg Tablet) 40 mg PO TUTHSA [facility]; Protocol Loratadine (Loratadine 10 Mg Tablet) 10 mg PO DAILY [facility] Last Admin: 03/05/25 09:06 Dose: 10 mg Documented By: BRANDEN Magnesium Hydroxide (Milk Of Magnesia 30 Ml Oral.Susp) 30 ml PO DAILY PRN PRN Reason: Constipation Melatonin (Melatonin 3 Mg Tablet) 6 mg PO BEDTIME PRN PRN Reason: Insomnia Last Admin: 03/03/25 21:36 Dose: 6 mg Documented By: BRIAN Omeprazole (Omeprazole 20 Mg Capsule.) 20 mg PO DAILY@0630 [facility] Last Admin: 03/05/25 06:43 Dose: 20 mg Documented By: BRIAN Ondansetron HCl (Ondansetron Hcl 4 Mg/2 Ml Vial) 4 mg IVPUSH Q8H PRN PRN Reason: Nausea and Vomiting Sodium Chloride (0.9 % Sodium Chloride Flush 3 Ml Syringe) 3 ml IVFLUSH QSHIFT [facility] Last Admin: 03/05/25 09:06 Dose: 3 ml Documented By: BRANDEN Thiamine HCl (Thiamine Hcl 100 Mg Tablet) 100 mg PO DAILY [facility] Last Admin: 03/05/25 09:06 Dose: 100 mg Documented By: BRANDEN Labs 03/03/25 04:35 03/03/25 04:35 Microbiology Microbiology Results: Microbiology 03/02/25 23:59 Urine Culture - Final Urine clean catch - Clean Catch Midstream Assessment and Plan (1) Hypoxia: Status: Acute (2) COVID-19: Status: Acute Plan 84-year-old female with pertinent history of chronic hypoxemic respiratory failure due to COPD on 2 L supplemental oxygen, coronary artery disease, right heart failure, CKD stage 3, hypertension, gastroesophageal reflux disease who was brought to the emergency department for evaluation after a syncopal episode. Acute on chronic hypoxemic respiratory failure due to COVID-19 infection leading to exacerbation of COPD: continue supplemental oxygen,dexamethasone 6 mg daily, DuoNebs. Continue home inhalers. Acute kidney injury stage I on CKD stage 3: Resuscitating with IV crystalloids. Hold furosemide, spironolactone and losartan in the setting of YA. ya improving Syncope: orthosatsis : feels weak added ronak stockings Right heart failure/cor pulmonale: Hold diuretics as above. Continue carvedilol Gastroesophageal reflux disease: On PPI ongoing need Acute on chronic hypoxemic respiratory failure due to COVID-19 infection leading to exacerbation of COPD-continue nebs,steriods ,oxygen. Quality Stroke Does the patient have a stroke diagnosis?: No VTE Prior VTE?: No VTE Risk Level:: Medical - moderate - high VTE Device Contraindication: Treatment Not Indicated VTE Drug Contraindication: N/A - Med Ordered
--- NOTE | 2025-03-05 13:31 | PM.DS ---
DS: Providers Provider Date of Service: 03/05/25 Date of admission: 03/02/25 22:45 Date of discharge: 03/05/25 Primary care physician: Jason Orantes MD Attending physician on discharge: Andrew Vidal Discharging clinician: Andrew Vidal DS: Diagnosis Discharge Diagnosis (1) Hypoxia: Status: Acute (2) COVID-19: Status: Acute DS: Summary Hospital Course Hospital Course: HPI:84-year-old female with pertinent history of chronic hypoxemic respiratory failure due to COPD on 2 L supplemental oxygen, coronary artery disease, right heart failure, CKD stage 3, hypertension, gastroesophageal reflux disease who was brought to the emergency department for evaluation after a syncopal episode. Patient states she has had multiple episodes of passing out due to low blood pressure in the past. She was sitting when this happened. No chest pain or palpitations prior to the episode. No jerking movement of extremities. Patient endorses dry cough that has been ongoing for the last 4-5 days. Also admits decreased p.o. intake. No nausea or vomiting. No diarrhea. Denies fever, chills, abdominal pain, changes in urinary or bowel habits. In the emergency department, patient tested positive for COVID-19 and requiring 4 L supplemental oxygen. Hospital course: 84-year-old female with pertinent history of chronic hypoxemic respiratory failure due to COPD on 2 L supplemental oxygen, coronary artery disease, right heart failure, CKD stage 3, hypertension, gastroesophageal reflux disease who was brought to the emergency department for evaluation after a syncopal episode. Acute on chronic hypoxemic respiratory failure due to COVID-19 infection leading to exacerbation of COPD: cta negative except has emphysema: started on supplemental oxygen,dexamethasone 6 mg daily, DuoNebs. seems sob improved ,feeling better , will go to rehab with dexamentasone for 7 more days. Acute kidney injury stage I on CKD stage 3: improved with Hold furosemide, spironolactone and losartan and received ivf -valentina improving. start sprinolactone and lasix -moniter renal function and electrolytes -may reintroduce losartan if renal function allows. Syncope: orthosatsis and dehydration ,covid might have contributed -no new episodes, tele seems fine ,orthostasis seems improved but still has mild blood pressure flactuation -but she is asymptomatic : continue shan stockings ,encouarged for po intake . plan: Monitor renal function electrolytes outpatient Hold losartan until renal function electrolytes repeated out patiently. Encouraged for p.o. intake. Shan farfan, monitor for orthostasis outpatient. hold losartan -consider reintroducing when orthostasis and renal function allows . Dexamethasone 6 mg daily for 7 days. assessment and plan coordination time spent 40 minute. Time Attestation Total time managing care of this patient today: 40 mintues. Discharge Coordination Time (in mins): 40 min Quality: Safe Use of Opioids Does Pt have an Active Cancer Diagnosis on the Problem List?: No Quality: Stroke Does the patient have a stroke diagnosis?: No Physical Exam Vital Signs: Vital Signs: Last Vital Signs Temp 97.1 F 03/05/25 12:00 Pulse 65 03/05/25 12:00 Resp 18 03/05/25 12:00 BP 164/90 H 03/05/25 12:00 Pulse Ox 97 03/05/25 12:00 O2 Del Method Oxymask 03/05/25 12:00 O2 Flow Rate 3 03/05/25 12:00 Oxygen Flow Rate 2 03/02/25 16:56 BMI result Body Mass Index 23.8 Regular rate and rhythm, S1-S2 heard Bilateral wheezing present Abdomen soft nontender, no guarding, no rigidity Patient is awake, alert and oriented x3 ; no focal motor deficit No pedal edema DS: Data Imaging Chest x-ray: My impression: cta: 1. No pulmonary emboli. No acute aortic syndrome. 2. Moderate centrilobular emphysema of both lungs. Lungs are otherwise clear. Discharge Plan Discharge Anticipated Discharge Date/Time: 03/05/25 13:22 Patient Disposition: er SNF Discharge Diagnosis: Acute on chronic hypoxemic respiratory failure due to COVID-19, orthostasis Referrals: Day [facility] [Outside] - 1 Day ([facility]) Jason Orantes MD [Primary Care Provider] - 1 Week Discharge Medications: New dexamethasone 6 mg tablet 6 mg PO DAILY Qty: 7 0RF Continued ipratropium-albuterol 0.5 mg-3 mg(2.5 mg base)/3 mL solution for nebulization 3 ml inhalation BID Rx Instructions: Alternate taking with Budesonide twice a day. loratadine [Allerclear] 10 mg Tablet 10 mg PO DAILY furosemide [Lasix] 40 mg tablet 40 mg PO TUTHSA albuterol sulfate 2.5 mg /3 mL (0.083 %) solution for nebulization 2.5 mg inhalation BID PRN (Reason: Shortness Of Breath Or Wheezing) omeprazole 20 mg capsule,delayed release(DR/EC) 20 mg PO DAILY@0630 spironolactone 25 mg tablet 25 mg PO DAILY albuterol sulfate 90 mcg/actuation HFA aerosol inhaler 2 puff PO Q6H PRN (Reason: Shortness Of Breath Or Wheezing) aspirin 81 mg tablet,delayed release (DR/EC) 81 mg PO DAILY doxazosin 4 mg tablet 2 mg PO BEDTIME@2300 fluoxetine 20 mg capsule 20 mg PO DAILY (DME) nebulizers Misc See Rx Instructions .Route Rx Instructions: As directed (DME) Oxygen Home Use Kit See Rx Instructions .Route Rx Instructions: As directed carvedilol 25 mg tablet 12.5 mg PO BID budesonide 0.25 mg/2 mL suspension for nebulization 0.25 mg inhalation BID 30 Days Qty: 120 11RF Held prednisone 5 mg tablet 5 mg PO Q48H Hold Instructions: Resume on 03/11/25. losartan 25 mg tablet 25 mg PO DAILY@1200 Hold Instructions: Resume on 03/09/25. Discharge Orders: Discharge Order (Routine); Ordered 03/05/25 Ordered By: Andrew Vidal Diet: Advance to usual diet Activity on Discharge: As tolerated Stand Alone Forms: Patient Portal Discharge page Print Language: Polish Care Plan Goals: 84-year-old female with pertinent history of chronic hypoxemic respiratory failure due to COPD on 2 L supplemental oxygen, coronary artery disease, right heart failure, CKD stage 3, hypertension, gastroesophageal reflux disease who was brought to the emergency department for evaluation after a syncopal episode. Acute on chronic hypoxemic respiratory failure due to COVID-19 infection leading to exacerbation of COPD: started on supplemental oxygen,dexamethasone 6 mg daily, DuoNebs. seems sob improved ,feeling better , will go to rehab with dexamentasone for 7 more days. Acute kidney injury stage I on CKD stage 3: improved with Hold furosemide, spironolactone and losartan and received ivf -valentina improving. start sprinolactone and lasix -moniter renal function and electrolytes -may reintroduce losartan if renal function allows. Syncope: orthosatsis and dehydration ,covid might have contributed -no new episodes, tele seems fine ,orthostasis seems improved with hydration and shan stockings . Health Concerns: as above Monitor renal function electrolytes outpatient Hold losartan until renal function electrolytes repeated out patiently. Encouraged for p.o. intake. Dexamethasone 6 mg daily for 7 days. Plan of Treatment: As above. Assessment: As above.
--- NOTE | 2025-03-05 13:37 | P.CDIM_ITS ---
PROVIDER RESPONSE TEXT: To clarify, the appropriate diagnosis supported by the clinical indicators: Hyponatremia: chronic QUERY TEXT: PHYSICIAN'S DOCUMENTATION REQUEST Date of Query: 03/04/2025 08:32 AM EDT Patient Name: Bhavna Brannon Admit Date: 03/03/2025 Dear Andrew Vidal MD, A review of the medical record indicates additional documentation may be needed. Please review below and update the documentation accordingly. Clinical Indicators: LABS: sodium 130 L Fluids Based on the above, could you clarify if there is a diagnosis that correlates with these lab findings : Hyponatremia possible, suspected, probable etc. Labs indicate a diagnosis of (please specify) Other (explain) Clinically unable to determine (explain) Thank you, Tisha Motta, CCS, CDIS Use of terms such as suspected, likely, concern for, or probable (associated with a specific diagnosi s that is being evaluated, monitored, or treated as if it exists) are acceptable and can be coded in the inpatient se tting, when documented at the time of discharge. Please use your independent medical judgment in providing your response. THIS QUERY IS PART OF THE PERMANENT MEDICAL RECORD
--- NOTE | 2025-03-05 13:37 | P.CDIM_ITS ---
PROVIDER RESPONSE TEXT: To clarify, the appropriate diagnosis supported by the clinical indicators: Other specified: chf -etiology unclear QUERY TEXT: PHYSICIAN'S DOCUMENTATION REQUEST Date of Query: 03/04/2025 08:34 AM EDT Patient Name: Bhavna Brannon Admit Date: 03/03/2025 Dear Andrew Vidal MD, A review of the medical record indicates additional documentation may be needed. Please review below and update the documentation accordingly. Clinical Indicators: Progress note dated 03/03/25 - Plan: Right heart failure/cor pulmonale. Hold diuretics as above. Continue Carvedilol. Please provide further specificity regarding the most likely acuity of the noted Right heart failure within the medical record: Right heart failure Acute, acute on chronic, chronic etc. Other specified Please specify if Acute, Chronic, or Acute on chronic, or Unable to determine Other (explain) Clinically unable to determine (explain) Thank you, Tisha Motta, CCS, CDIS Use of terms such as suspected, likely, concern for, or probable (associated with a specific diagnosi s that is being evaluated, monitored, or treated as if it exists) are acceptable and can be coded in the inpatient se tting, when documented at the time of discharge. Please use your independent medical judgment in providing your response. THIS QUERY IS PART OF THE PERMANENT MEDICAL RECORD
--- NOTE | 2025-03-05 14:19 | MHC.CM.PN ---
PT MEDICALLY CLEARED FOR DC TO STR AT [facility], CM CONTACTED PT'S DTR NICHOLAS (#ON FILE), NICHOLAS AND PT AGREEABLE TO [facility] FOR BLS TRANSPORT AT 5PM
== END 2025-03-05 18:02 | disposition skilled nursing facility (03) | DRG 177 ==
LOC: HO.ED 22:32 → HO.EDOVER 22:57 → HO.IMC 03-03 15:46
PROVIDERS: Admitting Provider Student in an Organized Health Care Education/Training Program; Emergency Provider Emergency Medicine; PCP Internal Medicine; Visit Provider Internal Medicine
DX: U07.1 COVID-19 (principal); J96.21 Acute and chronic respiratory failure with hypoxia; I13.0 Hypertensive heart and chronic kidney disease with heart failure and stage 1 through stage 4 chronic kidney disease, or unspecified chronic kidney disease; E87.1 Hypo-osmolality and hyponatremia; N17.9 Acute kidney failure, unspecified; J43.2 Centrilobular emphysema; E86.0 Dehydration; K21.9 Gastro-esophageal reflux disease without esophagitis; I27.81 Cor pulmonale (chronic); I25.10 Atherosclerotic heart disease of native coronary artery without angina pectoris; N18.30 Chronic kidney disease, stage 3 unspecified; Z66 Do not resuscitate; I50.810 Right heart failure, unspecified; Z95.5 Presence of coronary angioplasty implant and graft; Z87.891 Personal history of nicotine dependence; Z99.81 Dependence on supplemental oxygen; Z79.82 Long term (current) use of aspirin; Z79.899 Other long term (current) drug therapy
CPT/HCPCS: 0241U; 36415; 71045; 71275; 80048; 80076; 81001; 82803; 83880; 84484; 85025; 85027; 87086; 93005; 94640; 97162; 99285; J1100; J1650; J7120; J8540; Q9967

== ENCOUNTER → 2025-03-02 17:00 | Outpatient (BNV) | payer MEDICARE, SELFPAY | PROVIDERS: Admitting Provider Student in an Organized Health Care Education/Training Program; Emergency Provider Emergency Medicine; PCP Internal Medicine; Visit Provider Internal Medicine | DX: I45.10 Unspecified right bundle-branch block (principal) | CPT/HCPCS: 93010 ==

== ENCOUNTER → 2025-03-02 17:01 | Outpatient (BNV) | payer MEDICARE, SELFPAY | PROVIDERS: Emergency Provider Emergency Medicine; Visit Provider Radiology Diagnostic Radiology | DX: R09.02 Hypoxemia (principal); R55 Syncope and collapse | CPT/HCPCS: 71275 ==

== ENCOUNTER → 2025-03-02 18:41 | Outpatient (BNV) | payer MEDICARE, SELFPAY | PROVIDERS: Emergency Provider Emergency Medicine; PCP Internal Medicine; Visit Provider Student in an Organized Health Care Education/Training Program | DX: U07.1 COVID-19 (principal); J96.01 Acute respiratory failure with hypoxia; N17.9 Acute kidney failure, unspecified | CPT/HCPCS: 99223; 99231; 99232; 99239 ==

== ENCOUNTER 2025-05-18 15:06 | Outpatient (AMB) | payer MEDICARE, SELFPAY ==
--- NOTE | 2025-05-18 15:21 | MHC.OFFVIS ---
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 Allergies atorvastatin [Lipitor] Allergy (Severe, Verified 03/02/25 16:59) only oral hydralazine [HYDRALAZINE] Allergy (Severe, Verified 03/02/25 16:59) VOMITING, SYNCOPE labetalol [LABETALOL] Allergy (Unknown, Verified 03/02/25 16:59) SYNCOPE lisinopril [LISINOPRIL] Allergy (Unknown, Verified 03/02/25 16:59) HAIR FALLS OUT metoprolol [METOPROLOL] Allergy (Unknown, Verified 03/02/25 16:59) HAIR FALLS OUT penicillin V Allergy (Unknown, Verified 03/02/25 16:59) yeast infections Medication List - Last Reconciled 05/18/25 by Isaac Alonzo MD albuterol sulfate 2.5 mg inhalation BID PRN albuterol sulfate 90 mcg/actuation 2 puffs PO Q6H PRN aspirin 81 mg PO DAILY budesonide 0.25 mg (2 mL) inhalation BID 30 days carvedilol 12.5 mg PO BID doxazosin 2 mg PO BEDTIME@2300 fluoxetine 20 mg PO DAILY furosemide 40 mg PO 3XW ipratropium-albuterol 0.5 mg-3 mg(2.5 mg base)/3 mL 3 mL inhalation BID loratadine (Allerclear) 10 mg PO DAILY losartan 25 mg PO DAILY@1200 nebulizers As directed omeprazole 20 mg PO DAILY@0630 Oxygen Home Use As directed spironolactone 25 mg PO DAILY HPI Comments Details: Bhavna comes for follow-up. She has a progressive decline in overall her functional status. Comes in a wheelchair. She has had progressive hypoxemic respiratory failure, currently on oxygen therapy. Says with 2 L when she exerts she does get significant hypoxemia. She had issues when she was admitted with acute respiratory failure related to COVID infection underlying COPD had low blood pressure. Had stopped some of her medications. Currently blood pressure is stable. She has not had much lightheadedness. She does not drink enough water in the day. She has not had any anginal sounding chest discomfort. She is currently off PCSK9 inhibitor therapy due to cost [facility] Medical History Cor pulmonale Cough History of sepsis (~01/2017) Hyperlipidemia Hypertension Former smoker, stopped smoking in distant past CAD (coronary artery disease) Osteoporosis (~2018) Stenosis of middle cerebral artery History of TIAs History of CVA (cerebrovascular accident) (~07/2017) Dyspnea Atelectasis Chronic hypoxemic respiratory failure COPD (chronic obstructive pulmonary disease) Surgical History History of heart artery stent (~2011) History of hand surgery (~2004) History of left knee replacement (~2014) History of arthroscopy of right knee (~2003) History of carpal tunnel surgery of left wrist (~1998) Family History Brother CAD (coronary artery disease) Father CAD (coronary artery disease) Myocardial infarction Mother Leukemia Social History Housing: Group Home Do you presently have visiting nurse or other home services: Yes Alcohol intake: current Alcohol type: wine and hard liquor Patient Tobacco Use Status: Former Tobacco user Tobacco use type: Cigarette Years Smoked: (1ppd x 40yrs, quit 2001) e-Cigarette/Vaping Use: Former Use Advance Directives Date on File: 09/12/24 service: No Review of Systems Const Denies chills, Denies fatigue, Denies fever(s), Denies frequent falls, Denies weakness, Denies weight gain and Denies weight loss ENT Denies dizziness Card Denies chest pain, Denies leg edema, Denies lightheadedness, Denies palpitations, Denies dyspnea, Denies dyspnea on exertion, Denies orthopnea and Denies other (loss of consciousness) Resp Denies cough, Denies dyspnea and Denies dyspnea on exertion GI Denies hematochezia and Denies change in stool character Musc Denies abnormal gait, Denies muscle weakness, Denies numbness, Denies radiating pain into limb and Denies tingling Neuro Denies abnormal gait, Denies dizziness, Denies frequent falls, Denies numbness, Denies tingling and Denies weakness Endo Denies fatigue and Denies palpitations Physical Exam Vital Signs: Last Vital Signs Pulse 74 05/18/25 15:22 BP 120/80 05/18/25 15:22 Const General: cooperative, comfortable, no acute distress, alert and awake Nutritional Appearance: underweight and other (Frail) Orientation/consciousness: patient oriented x3 Limitations: wheelchair Neck Neck: Yes trachea midline, Yes supple and Yes no JVD Resp Effort & Inspection: normal respiratory effort and other (Using oxygen) Auscultation: diminished lung sounds Cardio Jugular venous distension: no JVD Palpation: normal PMI Rate: regular rate Rhythm: regular rhythm Heart sounds: S1 normal heart sound present, S2 normal heart sound present, no click, no gallops, no murmurs and no rubs GI Inspection: Yes obesity Auscultation: normal bowel sounds Skin General skin exam: no rashes or lesions noted and ecchymosis Neuro General: patient oriented x3 and no focal motor deficits Extrem General: No clubbing, No cyanosis and Yes pedal edema (Left lower extremity) Office Procedures EKG Details: EKG shows normal sinus rhythm with 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 No significant changes [id number], Complete Assessment & Plan Assessment & Plan (1) CAD (coronary artery disease): Comment: (Hx PCI with stents to RCA & LAD - 2011) Code(s): I25.10 - Atherosclerotic heart disease of [place] coronary artery without angina pectoris Category: Medical Plan: CAD with remote stenting multivessel. Currently not any concerning symptoms. Her overall prognosis guarded by her frailty and her progressive with lung disease and respiratory failure. Continue current aspirin therapy. Continue adequate blood pressure control. She is currently off lipid therapy due to cost issues. At this point time I think management of lipids are a low priority. This was discussed with patient patient's daughter. Overall prognosis is guarded. 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 Currently taking all her medications. Blood pressure is stable. Advised to maintain adequate hydration. Orthostatic precautions were discussed. Will follow up in the clinic in 1 year's time, sooner p.r.n.. Thank you for allowing me to partake in her care Medications: New doxycycline hyclate 100 mg PO BID 20 caps 0RF Coding Level of Care Code Est Pt Level 4 (06700) Complex EM visit Add On G2211 Diagnoses CAD (coronary artery disease) I25.10 Labile blood pressure R09.89 CPT Codes EKG - CPT: 42968-[id number], Complete ([id number])
[2025-05-18 15:22] VITALS: BP 120/80; PULSE 74
--- OUTSIDE RECORDS SUMMARY | 2025-05-18 17:35 | XMS_ITS ---
Author Organization Jason Orantes MD Address [address] [place], [place] [id number] Care Team Providers Care Size Marker Name Role Phone Jason Orantes Primary Care Provider [phone] Allergies Allergen (clinical drug ingredient) Drug/Non Drug Allergy documented on EMR Reaction Allergy Type Onset Date Status Penicillin G Benzathine Vaginal yeast infection Drug Allergy Active REASON FOR VISIT PH/TCM, video [phone] Medications Medication SIG (Take, Route, Frequency, Duration) [...] Location Date Provider Diagnosis Jason Orantes MD [address] [place] [address] [place] [phone] 03/23/2025 Jason Orantes Essential hypertension I10 and [...] better 03/23/2025 Other reviewed discharge summary from [facility] Plan Of Treatment Treatment Notes Assessment Notes Essential hypertension well controlled p t reports that readings are good at noon and 7pm so wants to try not taking the losartan at thse times and stick to morning and night time meds and monitor BP readings; leave off losartin for now Panlobular emphysema doing much better Other reviewed discharge s lisandro from [facility] and [facility] Progress Notes * Bhavna BOB LDOB:[birth year] (84 yo F)Acc No.[id number]:03/23/2025 Patient:?Bhavna BOB Provider:?Jason Orantes MD :1940???Age:84 Y???Sex:Female D ate:03/23/2025 Address:[facility] [address], [address], [facility] Subjective: * Chief Complaints: * ???PH/TCMVideo [phone] * HPI: ???Symptom(s):?Telehealth?Location of provider rendering services:?[address], [address],?Location of patient:?at address listed in demographics for today's visit,?Patient identification confirmed using:?Name, ,?Telehealth method:?Video conference where patient is visible to the provider of care,?Consent:?Patient verbally consented to treatment, Patient verbally consented to billing insurance company, Patient informed of any privacy concerns related to method of visit,?Total time spend talking with patient (minutes)?23.?patient is a? 84 yo female video telehealth visit, here for transitional care management visit, discharge summary has been reviewed and medications reconcilled/ here for? follow up. here for follow up of hospital. was passed out in chair. had covid. * ROS:?General/Constitutional:?Denies?Chills.?Denies?Fatigue.?Denies?Fever.?Denies?Headache.?ENT:?Denies?Sore throat.?Respiratory:?Denies?Cough.?Denies?Shortness of breath at rest.?Denies?Shortness of breath with exertion.?Gastrointestinal:?Denies?Diarrhea.?Denies?Nausea.? * Medical History:? * Surgical History:? * Hospitalization/Major Diagno stic Procedure:? * Medications:?TakingLasix 40 MG Tablet 1 tablet Orally sat [...] directed Subcutaneous once every 2 weeks * Allergies:?Penicillin G Gustavo athine: Vaginal yeast infectionyes[Allergies Verified] Objective: * Vitals:?Ht: 66, Wt: 148, BMI :23.89, BP:148/70, Wt-k.13. weight at home is 148? BP? 148/70. * Examination: ???General Examination: ?GENERAL APPEARANCE:?alert, well hydrated, in no distress, female.?HEAD:?normocephalic.?SKIN:?good turgor.?HEART:?no murmurs, rubs, gallops, regular rate and rhythm.?LUNGS:?no wheezes, rales, rhonchi, good air movement, clear to auscultation bilaterally.? Assessment: * Assessment: 1.?Panlobular emphysema - J4 3.1 (Primary)???2.?Essential hypertension - I10??? Plan: * Treatment: 2.?Essential hypertension? Notes: well controlled pt reports that readings are good at noon and 7pm so wants to try not taking the losartan at thse times and stick to morning and night time meds and monitor BP readings; leave off losartin for now?? 3.?Others? Notes: reviewed discharge summary from [facility] and [facility]?? * Procedure Codes:?[address] [facility] MGMT 7 DAY DISCH * * Sign off status: Completed true * Provider:?Jason Orantes MD Date:?0 03/23/2025 Generated for Kori white/Prisca/Franck on:?05/18/2025 05:35 PM EDT History and Physical Notes * HPI (History of Present Illness) Category Sub-Category Detail Notes Category Not es Symptom(s) Telehealth Location of [facility] ider rendering services:: [address], [address] patient is a 84 yo female video telehealth visit, here for transitional care management visit, discharge summary has been reviewed and medications reconcilled/ here for follow up. here for follow up of hospital. was passed out in chair. had covid. Location of patient:: at address listed in [...]
== END 2025-05-18 15:58 | disposition home or self-care (01) ==
PROVIDERS: PCP Internal Medicine; Visit Provider Internal Medicine Cardiovascular Disease
DX: I25.10 Atherosclerotic heart disease of native coronary artery without angina pectoris (principal); R09.89 Other specified symptoms and signs involving the circulatory and respiratory systems
CPT/HCPCS: 93010; 99214; G2211

== ENCOUNTER → 2025-05-18 15:06 | Outpatient (BNVA) | payer MEDICARE, SELFPAY | PROVIDERS: PCP Internal Medicine; Visit Provider Internal Medicine Cardiovascular Disease | DX: I25.10 Atherosclerotic heart disease of native coronary artery without angina pectoris (principal); R09.89 Other specified symptoms and signs involving the circulatory and respiratory systems; I45.2 Bifascicular block; R94.31 Abnormal electrocardiogram [ECG] [EKG] | CPT/HCPCS: 93005; 99212 ==

== ENCOUNTER 2025-05-18 17:07 | Outpatient (REF) | payer MEDICARE, SELFPAY ==
[2025-05-18 17:17] LABS: Appearance Urine Clear; Color Urine Yellow; Glucose Urine UA Negative (Negative); Leukocyte Esterase Urine Negative (Negative); Nitrite Urine Negative (Negative); Urine Blood Negative (Negative); Urine Ketones Negative (Negative); Urine Protein Negative (Neg-Trace)
[2025-05-18 17:20] LABS: Bacteria Urine None Seen (None Seen); RBC Urine 0-2 /HPF (0-2); Squamous Epithelial Cell Urine 0-2 /HPF (0-2); WBC Urine 0-5 /HPF (0-5)
== END 2025-05-18 17:08 | disposition home or self-care (01) ==
LOC: HO.LNP 17:07
PROVIDERS: Visit Provider Internal Medicine
DX: N39.0 Urinary tract infection, site not specified (principal)
CPT/HCPCS: 81001

== ENCOUNTER 2025-05-26 15:33 | Outpatient (AMB) | payer MEDICARE, SELFPAY ==
--- NOTE | 2025-05-26 15:36 | HO.NEPHOV_ITS ---
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 Technical Required: No Accompanied by: Daughter Allergies atorvastatin (Lipitor) Allergy (Severe, Verified 05/26/25 15:40) only oral hydralazine (HYDRALAZINE) Allergy (Severe, Verified 05/26/25 15:40) VOMITING, SYNCOPE labetalol (LABETALOL) Allergy (Unknown, Verified 05/26/25 15:40) SYNCOPE lisinopril (LISINOPRIL) Allergy (Unknown, Verified 05/26/25 15:40) HAIR FALLS OUT metoprolol (METOPROLOL) Allergy (Unknown, Verified 05/26/25 15:40) HAIR FALLS OUT penicillin V Allergy (Unknown, Verified 05/26/25 15:40) yeast infections Do you need a note to return to daycare/school/sports/work: No HPI Comments Details: Bhavna was seen in follow up of her chronic kidney disease and hypertension. She had been accompanied by her daughter. She has been having significant progressive weight loss. 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 She had been having some edema. She is compliant with her medications. She has H/O CVA as well as carotid stenosis. She has no H/O chest pain, dizziness, PND, edema or orthopnea. She also follows up with Dr Isaac Freitas Technical Trainer. Her renal function remains at baseline. Her afternoon losartan had been discontinued and her BP is stable. [facility] Medical History Cor pulmonale Cough History of sepsis (~01/2017) Hyperlipidemia Hypertension Former smoker, stopped smoking in distant past CAD (coronary artery disease) Osteoporosis (~2018) Stenosis of middle cerebral artery History of TIAs History of CVA (cerebrovascular accident) (~07/2017) Dyspnea Atelectasis Chronic hypoxemic respiratory failure COPD (chronic obstructive pulmonary disease) Surgical History History of heart artery stent (~2011) History of hand surgery (~2004) History of left knee replacement (~2014) History of arthroscopy of right knee (~2003) History of carpal tunnel surgery of left wrist (~1998) Family History Brother CAD (coronary artery disease) Father CAD (coronary artery disease) Myocardial infarction Mother Leukemia Social History Housing: Intermediate Do you presently have visiting nurse or other home services: Yes Alcohol intake: current Alcohol type: wine and hard liquor Patient Tobacco Use Status: Former Tobacco user Tobacco use type: Cigarette Years Smoked: (1ppd x 40yrs, quit 2001) e-Cigarette/Vaping Use: Former Use Advance Directives Date on File: 09/12/24 service: No Review of Systems Const All systems reviewed & are unremarkable except as noted in HPI and below Physical Exam Vital Signs: Last Vital Signs Pulse 71 05/26/25 15:38 BP 140/63 H 05/26/25 15:38 Pulse Ox 95 05/26/25 15:38 Oxygen Delivery Method Room Air 05/26/25 15:38 Const General: comfortable and no acute distress Orientation/consciousness: patient oriented x3 HEENT Head: Yes normocephalic Mouth: Normal oral and palatal mucosa present Eyes EOM: EOMs intact bilaterally Neck Neck: Yes supple Resp Auscultation: clear to auscultation bilaterally Cardio Jugular venous distension: no JVD Rate: regular rate GI Palpation (GI): Soft to palpation Auscultation: normal bowel sounds General: Yes no CVA tenderness Back/Spine/Pelvis Back: no CVA tenderness Skin General skin exam: no rashes or lesions noted Neuro General: patient oriented x3 and moves all extremities Extrem General: Yes no pedal edema Results Reviewed Nephrology Results: Hgb, (12.0-16.0) 12.5 g/dl 03/03/25 WBC, (4.8-10.8) 4.1 X10*3/uL L 03/03/25 Plt Count, (160-400) 197 X10*3/uL 03/03/25 Sodium, (135-145) 130 mmol/L L 03/03/25 Potassium, (3.3-5.1) 3.9 mmol/L 03/03/25 Chloride, (96-108) 95 mmol/L L 03/03/25 Carbon Dioxide, (22-29) 23 mmol/L 03/03/25 BUN, (9-16) 26 mg/dL H 03/03/25 Creatinine, (0.5-1.4) 1.22 mg/dL 03/03/25 Calcium, (8.4-10.2) 8.6 mg/dL 03/03/25 Urine Protein, (Neg-Trace) Negative mg/dL 05/18/25 Assessment & Plan Assessment & Plan (1) Hypertension: Code(s): I10 - Essential (primary) hypertension Category: Medical Qualifiers: Hypertension type: renovascular hypertension Qualified Code(s): I15.0 - Renovascular hypertension (2) CKD (chronic kidney disease) stage 3, GFR 30-59 ml/min: Code(s): N18.30 - Chronic kidney disease, stage 3 unspecified Category: Medical Qualifiers: Chronic kidney disease stage 3 subtype: stage 3a (GFR 45-59) Qualified Code(s): N18.31 - Chronic kidney disease, stage 3a Plan CKD 3 due to jeannette vascular disease and ischemic nephropathy ( Has CAD, carotid stenosis, intra cerebral MCA stenosis, MAVIS) BP not at goal; Volume status sub optimal; C/W lasix 40 mg three times a week Tolerating ARB. Renal function remains at baseline Low sodium diet; Good hydration; No NSAID's (Morning- 25 mg carvedilol, Noon Spironolactone 25 mg, 7 PM- carvedilol 25 mg Bed time Doxazosin 2 mg & losartan 25 mg ) Shall adjust her BP medications with evolving data All her and her daughters questions answered; F/U given Orders: Orders Creatinine 6 Months I15.0 - Renovascular hypertension, N18.31 - Chronic kidney disease, stage 3a Blood Urea Nitrogen 6 Months I15.0 - Renovascular hypertension, N18.31 - Chronic kidney disease, stage 3a Electrolytes 6 Months I15.0 - Renovascular hypertension, N18.31 - Chronic kidney disease, stage 3a Medications: Changed From furosemide 40 mg PO 3XW 6 tabs 1RF To furosemide 40 mg PO DAILY 90 tabs 4RF 90 days Coding Level of Care Code Est Pt Level 4 (99971) Diagnoses Renovascular hypertension I15.0 Hypertension type: renovascular hypertension Stage 3a chronic kidney disease N18.31 Chronic kidney disease stage 3 subtype: stage 3a (GFR 45-59)
[2025-05-26 15:38] VITALS: BP 140/63; PULSE 71; O2SAT 95
--- OUTSIDE RECORDS SUMMARY | 2025-05-26 18:22 | XMS_ITS | Encounter Summary ---
Author Organization [email or web address] Address [address] [place] [address] Care Team Providers Care Briar Cutter Name Role Phone Unavailable Primary Care Provider [...]
== END 2025-05-26 15:58 | disposition home or self-care (01) ==
LOC: HO.HKA 15:34
PROVIDERS: PCP Internal Medicine; Visit Provider Internal Medicine Nephrology
DX: I15.0 Renovascular hypertension (principal); N18.31 Chronic kidney disease, stage 3a
CPT/HCPCS: 99214

== ENCOUNTER → 2025-05-26 15:33 | Outpatient (BNVA) | payer MEDICARE, SELFPAY | PROVIDERS: PCP Internal Medicine; Visit Provider Internal Medicine Nephrology | DX: I15.0 Renovascular hypertension (principal); N18.31 Chronic kidney disease, stage 3a | CPT/HCPCS: 99212 ==

== ENCOUNTER 2025-09-06 15:07 | Outpatient (AMB) | payer MEDICARE, SELFPAY ==
--- NOTE | 2025-09-06 15:18 | A.OFFVIS_ITS ---
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 Required: No Accompanied by: Daughter Allergies atorvastatin (Lipitor) Allergy (Severe, Verified 09/06/25 15:23) only oral hydralazine (HYDRALAZINE) Allergy (Severe, Verified 09/06/25 15:23) VOMITING, SYNCOPE labetalol (LABETALOL) Allergy (Unknown, Verified 09/06/25 15:23) SYNCOPE lisinopril (LISINOPRIL) Allergy (Unknown, Verified 09/06/25 15:23) HAIR FALLS OUT metoprolol (METOPROLOL) Allergy (Unknown, Verified 09/06/25 15:23) HAIR FALLS OUT penicillin V Allergy (Unknown, Verified 09/06/25 15:23) yeast infections HPI Comments Details: The patient is a 85-year-old with a standing history of COPD. The patient taking her inhalers prescribed. This includes Symbicort and Spiriva. However she has been complaining worsening dyspnea exertion, moderate to severe. Therefore she has not been very active. Severe years ago The patient was admitted to the hospital with symptoms consistent with CVA. She did have a chest x-ray demonstrating atelectasis. During that hospitalization she was also transferred to [facility] for an acute CVA. She did not require any tPA. Currently she is taking a baby aspirin. During the visit today the patient did desaturate during 6 minutes walk test. The patient did qualify for oxygen. Therefore she was placed on 2 L of oxygen and overall she felt lot better. Therefore, I did recommend she start oxygen. She does not like the idea of using a nasal cannula. She is wondering about using a mask. Explained to her that she will need to use a nasal cannula especially for trying to get her a conserving device that she would likely need due to her handicap stay she will need better portability and that will be with a pulse valve. 08/03/2021 the patient is here for a pulmonary follow-up visit. Overall the patient has been doing better on the oxygen. She feels like she is less winded. Although, the oxygen tank does way a lot for her. She does use a walker and she is hopefully getting basket which she can put the small continues tank. OB hard for her to use the pulse valve because she is a mouth breather. In the meantime she should be using the concentrator in the house with the extension cord that will help as well. The patient did undergo pulmonary function studies demonstrating severe COPD with very severe diffusion impairment which goes along with her degree of symptoms. She has been on Symbicort and had added Spiriva during the last time. The therapy has been effective. She is wondering if she can try an alternative to see if she can get even better response. I do have a sample trial for Trelegy which I will give her to try for a month to see if this is more effective than the combination that she is on right now. The patient also did not go for chest x-ray and she will do that today. If her x-ray is any worse will go ahead and has a further adjusted changes. However if the chest x- ray has not significantly changed will just follow her chest x-rays. The andres sandy is not interested in having extensive evaluations. 03/02/2022 for the patient is here for pulmonary follow-up visit. She continues to have dyspnea on exertion and chest tightness. Moderate severity. She has not gotten any significant relief from the Trelegy. Is also very expensive for her. She does get more relief from her nebulizer. Therefore I did talk to about switching over to just nebulized therapy to try to administer the medication more effectively. The patient is open to this idea. However, she does have a couple new boxes of Trelegy at home. The patient will start DuoNeb 4 times a day and budesonide twice a day. In the meantime I did review her chest x-ray with her demonstrated no acute changes from back in the fall 2020. If the patient continues to be symptomatic will repeat the ox x-ray and potentially additional imaging if that is not helpful. The patient continues use her oxygen both with activity and sleep this has been affecting beneficial for her. She did get a small conserving device which has made a lot easier for portability. 02/22/2023 the patient is here for a pulmonary follow-up visit. Does have dyspnea with activity, mild to moderate. The budesonide has been helpful. In addition to that she has been using her DuoNeb 4 times a day. Using the Combivent instead of the DuoNeb and also at times. She continues use the oxygen with good effect. She has not had to increase the amount. Patient did have a chest x-ray previously that with did evaluate together in the office. It appears that she has some minimal atelectasis at the base. However repeat the x-ray to make sure that has not worsened. Otherwise she is going to continue with current respiratory therapy. 06/29/2024 the patient is here for a pulmonary follow-up visit. The patient overall has been doing okay. Although she has been having significant weight loss. She also has a hard time walking. She is currently on a wheelchair. She does use the oxygen although she does not use it all the time. She knows to use it specially if she is moving around. She does get very short of breath when she is doing minimal activities that is because she sometimes does not use her oxygen. She does check her numbers and sometimes she is in the 80s as far as her oxygen presented patient understands that she needs to keep her oxygen on to maintain a pulse ox above 90%. She has not issues she will call. In the meantime she does continue to use the budesonide with albuterol with ipratropium. She does use the nebulizer about 4 times a day which is her most effective therapy. Will continue the current respiratory regimen. The patient also should get a chest x-ray specially with weight loss. Otherwise patient return in 1 year or sooner if she develops any worsening symptoms. For x-rays abnormal we may need additional imaging studies. 11/16/2024 The patient is here for a pulmonary follow up visit. She has been complainng of worsening dyspnea. She did have a fall. She was admitted to hospital and then went to rehab. While in rehab she was on Trelegy. Now she is back home using her nebulizer therapy which works better for her. She did have a CXR 09/24 which I personally reviewed without acute disease. She does need additional oxygen supplementation. On exam she does have minimal breath sounds and a prolonged expiratory phase. She will be placed on prednisone and will request bloodwork including a bloodgas. 02/09/2025 the patient is here for a pulmonary follow-up visit. Overall the patient has been doing okay. She has been using her Trelegy with good effect and also his nebulized therapy as needed. She has some lower extremity edema but she has not been taking her Aldactone. She is going to restart taking it in the morning. She is also monitoring closely her blood pressure because it has been low. The patient did have a blood gas done back in November demonstrating a elevated pCO2 of 60 consistent with chronic hypercarbic respiratory failure. She rather not use a noninvasive ventilator at this time. The family and the patient will monitor closely for any symptoms of CO2 narcosis and then consider noninvasive therapy done. She continues years oxygen with good effect. Her concentrator though is mainly like burning and she is concerned that is an old concentrator and needs to be assess and may be changed specially since he uses it 24 hours a day. Will go ahead and request Gómez to check out the concentrator and see if it needs to be replaced. In the meantime she is going to continue with the current respiratory therapy. She also continues on 5 mg of prednisone daily. She is going to cut that down to every other day. 09/06/2025 the patient is here for pulmonary follow-up visit. The patient overall has been doing okay although she has been noticing increasing hypoxia with minimal activity. Even on the oxygen to 3 L she desaturates down to the low 80s. The patient does have a portable oxygen concentrator that she uses when she goes to the dining room common which has been very effective for her. She continues on the budesonide in the albuterol using the nebulizer 4 times a day. The patient also has been using diuretics. She has been having lower extremity edema and did have a open wound and cellulitis. She was treated with 2 courses of doxycycline. Almost partially closing the wound. Will give her additional doxycycline. If it stays open she may benefit from additional interventions. The patient will also monitor closely her volume status. With her significant lower extremity edema an echocardiogram will be helpful. She did also have a CT scan of the chest sometime in March. I personally reviewed her although limited cuts because it was hard for her to tolerate but it seems like she has moderate degree of emphysema. No evidence of any airspace disease that I can appreciate on the CAT scan although only sagittal views available. Will go ahead and request an echocardiogram to assess for cor pulmonale pulmonary hypertension that can be contributing to her ongoing symptoms. In addition to that the patient continues use her nebulized therapy with good effect. I do believe that adding Ohtuvayre will be helpful. [facility] Medical History Cor pulmonale Cough History of sepsis (~01/2017) Hyperlipidemia Hypertension Former smoker, stopped smoking in distant past CAD (coronary artery disease) Osteoporosis (~2018) Stenosis of middle cerebral artery History of TIAs History of CVA (cerebrovascular accident) (~07/2017) Dyspnea Atelectasis Chronic hypoxemic respiratory failure COPD (chronic obstructive pulmonary disease) Surgical History History of heart artery stent (~2011) History of hand surgery (~2004) History of left knee replacement (~2014) History of arthroscopy of right knee (~2003) History of carpal tunnel surgery of left wrist (~1998) Family History Brother CAD (coronary artery disease) Father CAD (coronary artery disease) Myocardial infarction Mother Leukemia Social History Housing: Jail Do you presently have visiting nurse or other home services: Yes Alcohol intake: current Alcohol type: wine and hard liquor Patient Tobacco Use Status: Former Tobacco user Tobacco use type: Cigarette Years Smoked: (1ppd x 40yrs, quit 2001) e-Cigarette/Vaping Use: Former Use Advance Directives Date on File: 09/12/24 service: No Review of Systems Const Denies night sweats and Reports weight loss ENT Denies change in voice, Denies lip swelling, Denies mouth pain, Reports nasal congestion, Reports nasal discharge and Denies tongue swelling Card Denies chest pain, Reports leg ulcers, Reports leg edema and Reports dyspnea on exertion Resp Reports cough and Reports dyspnea on exertion GI Denies abdominal pain Musc Denies no additional complaints, Reports abnormal gait, Reports myalgias, Reports limited range of motion and Reports muscle weakness Neuro Reports abnormal gait Psych Denies no additional complaints Nic/Lymph Denies easy bleeding and Denies lymphadenopathy Aller/Immun Denies lip swelling and Denies tongue swelling Physical Exam Vital Signs: Last Vital Signs Pulse 74 09/06/25 15:19 BP 164/70 H 09/06/25 15:19 Pulse Ox 96 09/06/25 15:19 Oxygen Delivery Method Nasal Cannula 09/06/25 15:19 Oxygen Flow Rate 3 09/06/25 15:19 Const General: alert Neck Neck: Yes normal visual inspection, Yes full ROM and Yes no lymphadenopathy Chest Chest palpation & inspection: normal inspection of the chest Resp Auscultation: diminished lung sounds Cardio Rate: regular rate Rhythm: regular rhythm Heart sounds: S1 normal heart sound present and S2 normal heart sound present GI Palpation (GI): Soft to palpation and nontender Auscultation: normal bowel sounds Skin Lesions: lesion noted Extrem General: No clubbing, No cyanosis and Yes edema Assessment & Plan Assessment & Plan (1) COPD (chronic obstructive pulmonary disease): Code(s): J44.9 - Chronic obstructive pulmonary disease, unspecified Category: Medical Qualifiers: COPD type: emphysema Emphysema type: centrilobular Qualified Code(s): J43.2 - Centrilobular emphysema (2) Chronic hypoxemic respiratory failure: Code(s): J96.11 - Chronic respiratory failure with hypoxia Category: Medical (3) Atelectasis: Code(s): J98.11 - Atelectasis Category: Medical (4) Dyspnea: Code(s): R06.00 - Dyspnea, unspecified Category: Medical Qualifiers: Dyspnea type: dyspnea on exertion Qualified Code(s): R06.00 - Dyspnea, unspecified (5) Cor pulmonale: Code(s): I27.81 - Cor pulmonale (chronic) Category: Medical Plan continue Duoneb QID continue BUdesonide nebs BID start Ohtuvayre continue diuresis as tolerated ECHO THELMA bloodwork, blood gas, cont to monitor. No NIV at this time Continue Oxygen 2L with activity and sleep, would benefir from POC for better portability outside of the home at 4l/pulse F/U 2-3 months Orders: Orders CA echo transthoracic complete Today I27.20 - Pulmonary hypertension, unspecified Medications: New doxycycline hyclate 100 mg PO BID 20 caps 0RF 10 days Coding Level of Care Code Est Pt Level 4 (97726) Complex EM visit Add On G2211 Diagnoses Centrilobular emphysema J43.2 COPD type: emphysema Emphysema type: centrilobular Chronic hypoxemic respiratory failure J96.11 Atelectasis J98.11 Dyspnea on exertion R06.00 Dyspnea type: dyspnea on exertion Cor pulmonale I27.81 Time Spent (min) 18
[2025-09-06 15:19] VITALS: BP 164/70; PULSE 74; O2SAT 96
--- OUTSIDE RECORDS SUMMARY | 2025-09-06 17:28 | XMS_ITS | Encounter Summary ---
Author Organization [facility] Address [address] [place] [address] Care Team Providers Care Dulser Name Role Phone Amanda Calvo MD Primary Care Provider [phone] Encounter Details Date Type Department Care Team (Late st Contact Info) Description 03/20/2025 Lab Requisition [facility] - Main Lab [address] [facility] [place] [address] Amanda Calvo MD [address] [facility] [address] [place] [address] Coronavirus infection, unspecified; Chronic kidney disease, unspecified Social History Tobacco Use Types Packs/Day Years Used Date Smoking Tobacco: Never Assessed Comments Unknown Sex and Gender Information Value Date Recorded Sex Assigned at Not on file Legal Sex Female 10:26 AM EDT Gender Identity Not on file Sexual Orientation Not on file documented as of this encounter Plan of Treatment Not on file documented as of this encounter Visit Diagnoses Diagnosis Coronavirus infection, unspecified Chronic kidney disease, unspecified documented in this encounter Care Teams Dulser Relationship Specialty Start Date End Date Amanda Calvo MD [address] [facility] [address] [place] [address] PCP - General Geriatric Medicine 03/08/25 documented as of this encounter
--- OUTSIDE RECORDS SUMMARY | 2025-09-06 17:28 | XMS_ITS | Clinical Summary ---
Author Organization [address] Address [address] [place] [phone] Phone Care Team Providers Care Regional Production Manager Name Role Phone Amanda Calvo MD Primary Care Provider [phone] Social History Tobacco Use Types Packs/Day Years Used Date Smoking Tobacco: Never Assessed Comments Unknown Sex and Gender Information Value Date Recorded Sex Assigned at Not on file Legal Sex Female 10:26 AM EDT Gender Identity Not on file Sexual Orientation Not on file Plan of Treatment Health Maintenance Due Date Last Done Comments DTaP,Tdap,and Td Vaccines (1 - Tdap) 1961 Pneumococcal Vaccine: 50+ Ye ars (1 of 1 - PCV) 1992 Zoster Vaccines (1 of 2) 1992 RSV Immunization Adult Patie nts (1 - 1-dose 75+ series) 2017 Depression Screening 12/02/2024 Falls Risk Assessment 03/08/2025 Medicare Annual Wellness Visit 03/08/2025 Osteoporosis Screening (Bone Density Screening) 03/08/2025 Social Influencers of Health Screening 03/08/2025 COVID-19 Vaccine ( - 2023-2 5 season) 2025 Influenza Vaccine (#1) 2025 HIB Vaccines Aged Out No longer eligi [...] on patient's age to complete this topic MMR Vaccines Aged Out No longer eligi ble based on patient's age to complete this topic Meningococcal ACWY Vaccine Aged Out N o longer eligible based on patient's age to complete this topic Meningococcal B Vaccine Aged Out No l onger eligible based on patient's age to complete this topic RSV Immunization Patients Un claudette 20 months Aged Out No longer eligible b ased on patient's age to complete this topic Varicella Vaccines Aged Out No longer eligible based on patient's age to complete this topic Insurance MEDICARE Care Teams Regional Production Manager Relationship Specialty Start Date End Date Amanda Calvo MD [address] [place] [address] [address] [place] [address] PCP - General Geriatric Medicine 03/08/25
--- OUTSIDE RECORDS SUMMARY | 2025-09-06 17:28 | XMS_ITS | Patient Health Record ---
[facility] Organization [facility] Address [address] [place] [address] Care Team Providers Care High School Assistant Principal Name Role Phone Micah nAtunez MD Primary Care Provider Montrell Horvath Unavailable [phone] Allergies Allergen (clinical drug ingredient) Drug/Non Drug Allergy documented on EMR Reaction Allergy Type Onset Date Status Penicillin yeast infection Drug Allergy Active Reason For Referral No Information Medications Medication SIG (Take, Route, Frequency, Duration) Notes Start Date End Date Status Vitamin E 400 UNIT 1 capsule Orally Onc e a day; Duration: 30 day(s) Not-Tommy ing Calcium + D + K 750-500-40 MG-UNT-MCG 1 tablet with meals Orally Once a day; Duration: 30 day(s) Not-Taking Biotin 5000 MCG 1 capsule Orally Onc e a day; Duration: 30 day(s) Not-Tommy ing Amlodipine & Diet Manage Prod 2.5MG Oncea a day Not-Taking Magnesium 300 MG 2 capsule with a doug l Orally Once a day; Duration: 30 day(s) Not-Taking Econazole Nitrate 1 % 1 application to affected area Externally Once a day; Duration: 30 days 10/19/2013 Not-Taking Clopidogrel Bisulfate Active Flax Seed Oil 1000 MG as directed Orally Not-Taking Crestor 20 MG 1 tablet Orally Once a day; Duration: 30 day(s) Not-Tommy ing Losartan Potassium A ctive Diflucan 200 MG 1 tablet Orally Once a week; Duration: 30 days 05/23/2016 Active Red Yeast Rice Not-T aking Spiriva HandiHaler A ctive Probiotic Not-Taking Vitamin C-Bioflavonoids 1000-100 MG as directed Orally Once a day Not-Taking Burden 3 350 MG Orally Not-T aking Coenzyme Q-10 300 mg 1 capsule with a me al Orally Once a day Active Carvedilol 12.5 MG Orally A ctive Glucosamine Chondroit-Collagen Not-Takin g Omeprazole 20 MG 1 capsule Orally Onc e a day; Duration: 30 day(s) Active Doxazosin Mesylate 4 MG 1 tablet Orally Once a day; Duration: 30 day(s) Active Aspir-81 81 MG 1 tablet Orally Once a day; Duration: 30 day(s) Active Loratadine 10 MG 1 tablet Orally Once a day; Duration: 30 day(s) Active Symbicort 160-4.5 MCG/ACT 2 puffs Inhalation Twice a day Active Fluticasone Propionate 50 MCG/ACT 1 spray in each nostril Nasally Once a day; Duration: 30 day(s) Active Plan Of Treatment Pending Test Test Name Order Date *Liver Function Test (LFT) 05/23/2016 [id number] NAIL, 1-5 10/19/2013 [id number] NAIL, 1-5 05/23/2016 Insurance Providers Payer Name Payer Address Payer Phone Subscriber Number Group Number Insured Name Patient Relationship to Insured Coverage Start Date Coverage End Date Medicare National Govt [employer] [address] [facility] [place] [phone] [id number] Bhavna Gusman Self - patient is the insured [employer] [address] [place] [address] [id number] Bhavna Gusman Self - patient is the insured Medical (General) History Medical History History ICD Code Arthritis cholesterol back, hip, knee pain heart disease high blood pressure measles mumps chicken pox Surgical History Surgery Date(Month/Year) 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 03/08/2016 admitted to [facility] DX mild stroke, [address] ay 06/2017
--- OUTSIDE RECORDS SUMMARY | 2025-09-06 17:28 | XMS_ITS | Encounter Summary ---
Author Organization [facility] Address [address] [place] [address] Care Team Providers Care Lamp Cleaner Name Role Phone Amanda Calvo MD Primary Care Provider [phone] Encounter Details Date Type Department Care Team (Late st Contact Info) Description 03/08/[address] [facility] - Main Lab [address] [facility] [place] [address] Amanda Calvo MD [address] [place] [address] COVID-19; Chronic kidney disease, unspecified; Vitamin D deficiency, unspecified Social History Tobacco Use Types Packs/Day Years Used Date Smoking Tobacco: Never Assessed Comments Unknown Sex and Gender Information Value Date Recorded Sex Assigned at Not on file Legal Sex Female 10:26 AM EDT Gender Identity Not on file Sexual Orientation Not on file documented as of this encounter Plan of Treatment Not on file documented as of this encounter Procedures Procedure Name Priority Date/Time Associated Diagnosis Comments VITAMIN D 25 HYDROXY Routine 03/08/2025 5:46 AM EDT COVID-19 Chronic kidney disease, unspecified Vitamin D deficiency, unspecified COMPLETE BLOOD COUNT Routine 03/08/2025 5:46 AM EDT COVID-19 Chronic kidney disease, unspecified Vitamin D deficiency, unspecified FOLATE Routine 03/08/2025 5:46 AM EDT COVID-19 Chronic kidney disease, unspecified Vitamin D deficiency, unspecified VITAMIN B12 Routine 03/08/2025 5:46 AM EDT COVID-19 Chronic kidney disease, unspecified Vitamin D deficiency, unspecified COMPREHENSIVE METABOLIC PANEL Routine 03/08/2025 5:46 AM EDT COVID-19 Chronic kidney disease, unspecified Vitamin D deficiency, unspecified documented in this encounter Results * Folate (03/08/2025 5:46 AM EDT) [facility] Folate 6.5 2.8 - 17.0 ng/ml LAB CHEMISTRY METHOD 03/08/2025 1:[address] [facility] Blood Venous blood specimen / Unknown Venipuncture / Unknown 03/08/2025 5:46 AM EDT 03/08/2025 10:30 AM EDT us Amanda Calvo MD LAB BLOOD ORDERABLES Final Resul t Performing Organization Address [facility]/ZIP Co de Phone Number [facility] [address] [place] [address], [place] [phone] * (ABNORMAL) Vitamin D 25 hydroxy (03/08/2025 5:46 AM EDT) [facility] Vit D, 25-Hydroxy 14.9(L) 30.0 - 80.0 ng/mL LAB CHEMISTRY METHOD 03/08/2025 1:[address] [facility] Blood Venous blood specimen / Unknown Venipuncture / Unknown 03/08/2025 5:46 AM EDT 03/08/2025 10:30 AM EDT us Amanda Calvo MD LAB BLOOD ORDERABLES Final Resul t Performing Organization Address City/[facility]/ZIP Co de Phone Number [facility] [address] [place] [address], [place] [phone] * Vitamin B12 (03/08/2025 5:46 AM EDT) [facility] Vitamin B-12 250 250 - 900 pcg/mL LAB CHEMISTRY METHOD 03/08/2025 1:[address] [facility] Blood Venous blood specimen / Unknown Venipuncture / Unknown 03/08/2025 5:46 AM EDT 03/08/2025 10:30 AM EDT Amanda Calvo MD LAB BLOOD ORDERABLES Final Resul t [facility] [address] [place] [address], * (ABNORMAL) Comprehensive metabolic panel (03/08/2025 5:46 AM EDT) Sodium 134 133 - 145 mmol/L LAB CHEMISTRY METHOD 03/08/2025 1:18 PM [facility] Potassium 3.4(L) 3.5 - 5.5 mmol/L LAB CHEMISTRY METHOD 03/08/2025 1:18 PM [facility] Chloride 94(L) 96 - 110 mmol/L LAB CHEMISTRY METHOD 03/08/2025 1:18 PM [facility] CO2 33(H) 21 - 32 mmol/L LAB CHEMISTRY METHOD 03/08/2025 1:18 PM [facility] Anion Gap 7 3 - 11 LAB CHEMISTRY METHOD 03/08/2025 1:18 PM [facility] Glucose 79 70 - 100 mg/dL LAB CHEMISTRY METHOD 03/08/2025 1:18 PM [facility] BUN 23 5 - 25 mg/dL LAB CHEMISTRY METHOD 03/08/2025 1:18 PM [facility] Creatinine 0.88 0.50 - 1.10 mg/dL LAB CHEMISTRY METHOD 03/08/2025 1:18 PM [facility] eGFR 66 >=60 mL/min/1. 73m2 LAB CHEMISTRY METHOD 03/08/2025 1:18 PM [facility] Comment:Calculation based on the Chronic Kidney Disease Epidemiology Collaboration (CKD-EPI) equation refit without adjustment for race. BUN/Creatinine Ratio 26.1 LAB CHEMISTRY METHOD 03/08/2025 1:[address] [facility] Calcium 8.7 8.5 - 10.5 mg/dL LAB CHEMISTRY METHOD 03/08/2025 1:[address] [facility] AST (SGOT) 20 10 - 42 unit/L LAB CHEMISTRY METHOD 03/08/2025 1:[address] [facility] ALT (SGPT) 19 10 - 60 unit/L LAB CHEMISTRY METHOD 03/08/2025 1:[address] [facility] Alkaline Phosphatase 46 42 - 121 unit/L LAB CHEMISTRY METHOD 03/08/2025 1:18 PM [facility] Total Protein 5.9(L) 6.0 - 8.0 g/dL LAB CHEMISTRY METHOD 03/08/2025 1:18 PM [facility] Albumin 3.0(L) 3.2 - 5.0 g/dL LAB CHEMISTRY METHOD 03/08/2025 1:18 PM [facility] Total Bilirubin 0.5 0.0 - 1.4 mg/dL LAB CHEMISTRY METHOD 03/08/2025 1:18 PM [facility] Blood Venous blood specimen / Unknown Venipuncture / Unknown 03/08/2025 5:46 AM EDT 03/08/2025 10:30 AM EDT us Amanda Calvo MD LAB BLOOD ORDERABLES Final Resul t [facility] [address] [place] [address], * Complete blood count (03/08/2025 5:46 AM EDT) WBC 7.2 4.8 - 10.8 K/mcL LAB HEMETOLOGY METHOD 03/08/2025 11:[address] [facility] RBC 4.30 3.80 - 4.80 M/mcL LAB HEMETOLOGY METHOD 03/08/2025 11:14 AM [facility] Hemoglobin 12.4 11.5 - 16.0 g/dL LAB HEMETOLOGY METHOD 03/08/2025 11:14 AM [facility] Hematocrit 37.3 35.0 - 47.0 % LAB HEMETOLOGY METHOD 03/08/2025 11:14 AM [facility] MCV 86.9 79.0 - 98.0 FL LAB HEMETOLOGY METHOD 03/08/2025 11:14 AM [facility] MCH 28.9 27.0 - 32.0 pcg LAB HEMETOLOGY METHOD 03/08/2025 11:14 AM [facility] MCHC 33.2 32.0 - 37.0 g/dL LAB HEMETOLOGY METHOD 03/08/2025 11:14 AM [facility] RDW 13.2 11.0 - 15.0 % LAB HEMETOLOGY METHOD 03/08/2025 11:14 AM [facility] Platelets 237 130 - 400 K/mcL LAB HEMETOLOGY METHOD 03/08/2025 11:14 AM [facility] MPV 10.2 7.0 - 11.0 FL LAB HEMETOLOGY METHOD 03/08/2025 11:14 AM [facility] NRBC 0.0 <1.0 % LAB HEMETOLOGY METHOD 03/08/2025 11:14 AM [facility] NRBC Absolute 0.00 <0.10 K/mcL LAB HEMETOLOGY METHOD 03/08/2025 11:14 AM [facility] Blood Venous blood specimen / Unknown Venipuncture / Unknown 03/08/2025 5:46 AM EDT 03/08/2025 10:30 AM EDT Amanda Calvo MD LAB BLOOD ORDERABLES Final Resul t [facility] ([facility]) [facility] [address] [place] [address], documented in this encounter Visit Diagnoses Diagnosis COVID-19 Chronic kidney disease, unspecified Vitamin D deficiency, unspecified documented in this encounter Care Teams Lamp Cleaner Relationship Specialty Start Date End Date Amanda Calvo MD [address] [place] [address] [address] [place] [address] PCP - General Geriatric Medicine 03/08/25 documented as of this encounter
--- OUTSIDE RECORDS SUMMARY | 2025-09-06 17:28 | XMS_ITS | Encounter Summary ---
Author Organization [facility] Address [address] [place] [address] Care Team Providers Care Colorman Name Role Phone Amanda Calvo MD Primary Care Provider [phone] Encounter Details Date Type Department Care Team (Late st Contact Info) Description 03/10/2025 Lab Requisition [facility] - Main Lab [address] [facility] [place] [address] Amanda Calvo MD [address] [place] [address] Hypokalemia Social History Tobacco Use Types Packs/Day Years [...] Procedure Name Priority Date/Time Associated Diagnosis Comments BASIC METABOLIC PANEL Routine 03/10/2025 9:47 AM EDT Hypokalemia documented in this encounter Results * (ABNORMAL) Basic metabolic panel (03/10/2025 9:47 AM EDT) Sodium 134 133 - 145 mmol/L LAB CHEMISTRY METHOD 03/10/2025 12:56 PM EDT [facility] Potassium 3.8 3.5 - 5.5 mmol/L LAB CHEMISTRY METHOD 03/10/2025 12:56 PM T [facility] Chloride 93(L) 96 - 110 mmol/L LAB CHEMISTRY METHOD 03/10/2025 12:[address] [facility] CO2 30 21 - 32 mmol/L LAB CHEMISTRY METHOD 03/10/2025 12:56 PM EDT [facility] Anion Gap 11 3 - 11 LAB CHEMISTRY METHOD 03/10/2025 12:[address] [facility] Glucose 133(H) 70 - 100 mg/dL LAB CHEMISTRY METHOD 03/10/2025 12:[address] [facility] BUN 19 5 - 25 mg/dL LAB CHEMISTRY METHOD 03/10/2025 12:[address] [facility] Creatinine 0.99 0.50 - 1.10 mg/dL LAB CHEMISTRY METHOD 03/10/2025 12:[address] [facility] eGFR 57(L) >=60 mL/min/1. 73m2 LAB CHEMISTRY METHOD 03/10/2025 12:[address] [facility] Comment:Calculation based on the Chronic Kidney Disease Epidemiology Collaboration (CKD-EPI) equation refit without adjustment for race. BUN/Creatinine Ratio 19.2 LAB CHEMISTRY METHOD 03/10/2025 12:[address] [facility] Calcium 8.8 8.5 - 10.5 mg/dL LAB CHEMISTRY METHOD 03/10/2025 12:[address] [facility] Blood Venous blood specimen / Unknown Venipuncture / Unknown 03/10/2025 9:47 AM EDT 03/10/2025 10:49 AM EDT us Amanda Calvo MD LAB BLOOD ORDERABLES Final Resul t [facility] [address] [place] [address], documented in this encounter Visit Diagnoses Diagnosis Hypokalemia Hypopotassemia documented in this encounter Care Teams Colorman Relationship Specialty Start Date End Date Amanda Calvo MD [address] [place] [address] [address] [place] [address] PCP - General Geriatric Medicine 03/08/25 documented as of this encounter
--- OUTSIDE RECORDS SUMMARY | 2025-09-06 17:28 | XMS_ITS | Clinical Summary ---
Author Organization [employer] Address [address] [facility] [address] [place] [address] Care Team Providers Care Shipfitters Supervisor Name Role Phone Unavailable Primary Care Provider [...]
--- OUTSIDE RECORDS SUMMARY | 2025-09-06 17:28 | XMS_ITS | Encounter Summary ---
Author Organization [facility] Address [address] [place] [address] Care Team Providers Care Lobby Attendant Name Role Phone Amanda Calvo MD Primary Care Provider [phone] Encounter Details Date Type Department Care Team (Late st Contact Info) Description 03/12/2025 Lab Requisition [facility] - Main Lab [address] [place] [address] Amanda Calvo MD [address] [place] [address] Coronavirus infection, unspecified; Chronic kidney disease, unspecified [...] Procedure Name Priority Date/Time Associated Diagnosis Comments COMPLETE BLOOD COUNT Routine 03/15/2025 7:37 AM EDT Coronavirus infection, unspecified Chronic kidney disease, unspecified BASIC METABOLIC PANEL Routine 03/15/2025 7:37 AM EDT Coronavirus infection, unspecified Chronic kidney disease, unspecified documented in this encounter Results * (ABNORMAL) Basic metabolic panel (03/15/2025 7:37 AM EDT) Sodium 131(L) 133 - 145 mmol/L LAB CHEMISTRY METHOD 03/15/2025 1:47 PM EDT [facility] Potassium 3.5 3.5 - 5.5 mmol/L LAB CHEMISTRY METHOD 03/15/2025 1:47 PM EDT [facility] Chloride 91(L) 96 - 110 mmol/L LAB CHEMISTRY METHOD 03/15/2025 1:47 PM [facility] CO2 32 21 - 32 mmol/L LAB CHEMISTRY METHOD 03/15/2025 1:47 PM [facility] Anion Gap 8 3 - 11 LAB CHEMISTRY METHOD 03/15/2025 1:47 PM T [facility] Glucose 68(L) 70 - 100 mg/dL LAB CHEMISTRY METHOD 03/15/2025 1:47 PM [facility] BUN 17 5 - 25 mg/dL LAB CHEMISTRY METHOD 03/15/2025 1:47 PM [facility] Creatinine 0.91 0.50 - 1.10 mg/dL LAB CHEMISTRY METHOD 03/15/2025 1:47 PM [facility] eGFR 63 >=60 mL/min/1. 73m2 LAB CHEMISTRY METHOD 03/15/2025 1:47 PM [facility] Comment:Calculation based on the Chronic Kidney Disease Epidemiology Collaboration (CKD-EPI) equation refit without adjustment for race. BUN/Creatinine Ratio 18.7 LAB CHEMISTRY METHOD 03/15/2025 1:47 PM [facility] Calcium 8.6 8.5 - 10.5 mg/dL LAB CHEMISTRY METHOD 03/15/2025 1:47 PM [facility] Blood Venous blood specimen / Unknown Venipuncture / Unknown 03/15/2025 7:37 AM EDT 03/15/2025 11:34 AM EDT us Amanda Calvo MD LAB BLOOD ORDERABLES Final Resul t [facility] [address] [place] [address], * Complete blood count (03/15/2025 7:37 AM EDT) [facility] WBC 10.8 4.8 - 10.8 K/mcL LAB HEMETOLOGY METHOD 03/15/2025 1:29 PM EDT [facility] RBC 4.30 3.80 - 4.80 M/mcL LAB HEMETOLOGY METHOD [facility]25 [facility] Hemoglobin 12.5 11.5 - 16.0 g/dL LAB HEMETOLOGY METHOD 03/15/2025 1:29 PM EDT [facility] Hematocrit 38.8 35.0 - 47.0 % LAB HEMETOLOGY METHOD 03/15/2025 1:29 PM [facility] MCV 90.4 79.0 - 98.0 FL LAB HEMETOLOGY METHOD 03/15/2025 1:29 PM [facility] MCH 29.1 27.0 - 32.0 pcg LAB HEMETOLOGY METHOD 03/15/2025 1:29 [facility] MCHC 32.2 32.0 - 37.0 g/dL LAB HEMETOLOGY METHOD 03/15/2025 1:29 PM [facility] RDW 13.3 11.0 - 15.0 % LAB HEMETOLOGY METHOD 03/15/2025 1:29 PM [facility] Platelets 328 130 - 400 K/mcL LAB HEMETOLOGY METHOD 03/15/2025 1:29 [facility] MPV 9.9 7.0 - 11.0 FL LAB HEMETOLOGY METHOD 03/15/2025 1:29 [facility] NRBC 0.0 <1.0 % LAB HEMETOLOGY METHOD 03/15/2025 1:29 PM [facility] NRBC Absolute 0.00 <0.10 K/mcL LAB HEMETOLOGY METHOD 03/15/2025 1:29 PM EDT [facility] Blood Venous blood specimen / Unknown Venipuncture / Unknown 03/15/2025 7:37 AM EDT 03/15/2025 11:34 AM EDT Amanda Calvo MD LAB BLOOD ORDERABLES Final Resul t [facility] [address] [place] [address], documented in this encounter Visit Diagnoses Diagnosis Coronavirus infection, unspecified Chronic kidney disease, unspecified documented in this encounter Care Teams Lobby Attendant Relationship Specialty Start Date End Date Amanda Calvo MD [address] [place] [address] [address] [place] [address] PCP - General Geriatric Medicine 03/08/25 documented as of this encounter
--- OUTSIDE RECORDS SUMMARY | 2025-09-06 17:28 | XMS_ITS | Encounter Summary ---
Author Organization [employer] Address [address] [facility] [address] [place] [address] Care Team Providers Care Resp Ther Name Role Phone Unavailable Primary Care Provider [...]
== END 2025-09-06 15:52 | disposition home or self-care (01) ==
LOC: HO.HPS 15:08
PROVIDERS: PCP Internal Medicine; Visit Provider Hospitalist
DX: J43.2 Centrilobular emphysema (principal); J96.11 Chronic respiratory failure with hypoxia; J98.11 Atelectasis; I27.81 Cor pulmonale (chronic)
CPT/HCPCS: 99214; G2211

== ENCOUNTER → 2025-09-06 15:07 | Outpatient (BNVA) | payer MEDICARE, SELFPAY | PROVIDERS: PCP Internal Medicine; Visit Provider Hospitalist | DX: J43.2 Centrilobular emphysema (principal); J96.11 Chronic respiratory failure with hypoxia; J98.11 Atelectasis; I27.81 Cor pulmonale (chronic); Z87.891 Personal history of nicotine dependence; Z99.81 Dependence on supplemental oxygen | CPT/HCPCS: 99212 ==

== ENCOUNTER 2025-11-17 15:37 | Outpatient (AMB) | payer MEDICARE, SELFPAY ==
--- OUTSIDE RECORDS SUMMARY | 2025-01-11 03:37 | XMS_ITS ---
Author Organization Jason Orantes MD Address [address] [place] [phone] Care Team Providers Care Design Coordinator Name Role Phone Jason Orantes Primary Care Provider Medications Medication SIG (Take, Route, Frequency, Duration) Notes Start Date End Date Status MagOx 400 400 (240 Mg) MG 1 tablet with food Orally Once a day for 30 days 11/17/2024 Active Encounters Encounter Location Date Provider Diagnosis Jason Orantes MD [address] [place] [address] [id number] 01/11/2025 Jason Orantes Plan Of Treatment Medication Medication Name Sig Start Date Stop Date Notes MagOx 400 400 (240 Mg) MG 1 tablet with food Orally Once a day for 30 days 11/17/2024 Progress Notes * Bhavna BOB LDOB:[birth year] (84 yo F)Acc No.[id number]:01/11/2025 Patient: Ana Bhavna CRUZ :1940 A ge:84 Y S ex:Female Address:[address], [address], [place], [address] * Refills Refill MagOx 400 Tablet, 400 (240 Mg) MG, Orally, 30 Tablet, 1 tablet with food, Once a day, 30 days * true * Date: Generated for Kori white/Prisca/Franck on: 1 01/18/2025 08:30 PM EST
--- OUTSIDE RECORDS SUMMARY | 2025-03-08 06:57 | XMS_ITS ---
Author Organization Jason Orantes MD Address [address] [place] [id number] Care Team Providers Care Geriatric Personal Care Aide Name Role Phone Jason Orantes Primary Care Provider [phone] REASON FOR VISIT discharge Encounters Encounter Location Date Provider Diagnosis Jason Orantes MD [address] [place], [place] [phone] 03/08/2025 Jason Orantes Plan Of Treatment No Information Progress Notes * Bhavna BOB LDOB:[birth year] (84 yo F)Acc No.[id number]:03/08/2025 Patient: Ana Bhavna CRUZ :1940 A ge:84 Y S ex:Female Address:[address], [address], [place], [address] * true * Date: Generated for Printi ng/Faxing/eTransmitting on: 1 01/18/2025 08:31 PM EST
--- OUTSIDE RECORDS SUMMARY | 2025-03-23 06:45 | XMS_ITS ---
Author Organization Jason Orantes MD Address [address] [place], [place] [id number] Care Team Providers Care Hydrometeorology Teacher Name Role Phone Jason Orantes Primary Care Provider Allergies Allergen (clinical drug ingredient) Drug/Non Drug Allergy documented on EMR Reaction Allergy Type Onset Date Status Penicillin G Benzathine Vaginal yeast infection Drug Allergy Active REASON FOR VISIT PH/TCM, video [phone] Medications Medication SIG (Take, Route, Frequency, Duration) Notes Start Date End Date Status MagOx 400 400 (240 Mg) MG 1 tablet with food Orally Once a day for 30 days 11/17/2024 Active Fluticasone Propionate 50 MCG/ACT 1 spray in each nostril Nasally Once a day Not-Taking Celecoxib 200 MG TAKE 1 CAPSULE BY MOUTH WITH FOOD ONCE DAILY for 90 Not-Taking Amoxicillin-Pot Clavulanate 875-125 MG 1 tablet Orally every 12 hrs for 10 days 01/08/2025 Active Ipratropium-Albuterol 0.5-2.5 (3) MG/3ML INHALE 1 VIAL VIA NEBULIZER EVERY 6 HOURS NEEDED FOR 30 DAYS for 30 Active Omeprazole 20 MG TAKE 1 CAPSULE BY MOUTH DAILY for 90 Active FLUoxetine HCl 20 MG TAKE 1 CAPSULE BY MOUTH ONCE DAILY for 90 Active Doxazosin Mesylate 4 MG TAKE 1 TABLET BY MOUTH ONCE DAILY AT BEDTIME Active Spironolactone 25 MG TAKE 1 TABLET BY MO UTH DAILY for 90 Active Loratadine 10 MG 1 tablet Orally Once a day Active Carvedilol 25 MG 1 tablet with food Orally Twice a day Active Losartan Potassium 50 MG TAKE 1 TABLET B Y MOUTH TWICE DAILY Active Ventolin HFA 108 (90 Base) MCG/ACT 1 puff as needed Inhalation every 4 hrs 03/07/2021 Active Aspirin 81 81 MG 1 tablet Orally Once a day Active Lasix 40 MG 1 tablet Orally sat for 30 days Active Budesonide 0.25 MG/2ML 2 mL Inhalation T wice a day Active Vital Signs Blood pressure systolic 148 mm Hg 03/23/20 25 Blood pressure diastolic 70 mm Hg 025 Height 66 in 03/23/2025 Weight 148 lbs 03/23/2025 BMI 23.89 kg/m2 03/23/2025 weight at home is 148 BP 148 /70 Encounters Encounter Location Date Provider Diagnosis Jason Oarntes MD [address] [place], [place] [phone] 03/23/2025 Jason Orantes Essential hypertension I10 and Panlobular emphysema J43.1 Assessments Encounter Date Diagnosis (ICD Code) Assessment Notes Treatment Notes Treatment Clinical Notes Section Notes 03/23/2025 Essential hypertension (ICD-10 - I10) well controlled pt reports that readings are good at noon and 7pm so wants to try not taking the losartan at thse times and stick to morning and night time meds and monitor BP readings; leave off losartin for now 03/23/2025 Panlobular emphysema (ICD-10 - J43.1) doing much better 03/23/2025 Other reviewed discharge summary from [facility] and [facility] Plan Of Treatment Treatment Notes Assessment Notes Essential hypertension well controlled p t reports that readings are good at noon and 7pm so wants to try not taking the losartan at thse times and stick to morning and night time meds and monitor BP readings; leave off losartin for now Panlobular emphysema doing much better Other reviewed discharge s lisandro from [facility] and [facility] Progress Notes * Bhavna BOB LDOB:[birth year] (84 yo F)Acc No.[id number]:03/23/2025 Patient: Bhavna EDWARDS Provider: Carolina Orantes MD :1940 A ge:84 Y S ex:Female Date:03/23/2025 Address:[facility] [address], [address], [place], [id number] Subjective: * Chief Complaints: * P H/TCMVideo [phone] * HPI: S ymptom(s): Telehealth L ocation of provider rendering services: [address], [address], L ocation of patient: a t address listed in demographics for today's visit, P atient identification confirmed using: EKTA Khan ame, T elehealth method: V ideo conference where patient is visible to the provider of care, C onsent: P atient verbally consented to treatment, Patient verbally consented to billing insurance company, Patient informed of any privacy concerns related to method of visit, T otal time spend talking with patient (minutes) 2 3. patient is a 84 yo female video telehealth visit, here for transitional care management visit, discharge summary has been reviewed and medications reconcilled/ here for follow up. here for follow up of hospital. was passed out in chair. had covid. * ROS: G eneral/Constitutional: Denies C hills. D enies F atigue. D enies F ever. D enies H eadache. E NT: Denies S ore throat. R espiratory: Denies C ough. D enies S hortness of breath at rest. D enies S hortness of breath with exertion. G astrointestinal: Denies D iarrhea. D enies N ausea. * Medical History: * Surgical History: * Hospitalization/Major Diagno stic Procedure: * Medications: T akingLasix 40 MG Tablet 1 tablet Orally sat Budesonide 0.25 MG/2ML Suspension 2 mL Inhalation Twice a day Aspirin 81 81 MG Tablet Chewable 1 tablet Orally Once a day Loratadine 10 MG Tablet 1 tablet Orally Once a day Carvedilol 25 MG Tablet 1 tablet with food Orally Twice a day Losartan Potassium 50 MG Tablet TAKE 1 TABLET BY MOUTH TWICE DAILY Ventolin HFA 108 (90 Base) MCG/ACT Aerosol Solution 1 puff as needed Inhalation every 4 hrs Ipratropium-Albuterol 0.5-2.5 (3) MG/3ML Solution INHALE 1 VIAL VIA NEBULIZER EVERY 6 HOURS NEEDED FOR 30 DAYS Omeprazole 20 MG Capsule Delayed Release TAKE 1 CAPSULE BY MOUTH DAILY FLUoxetine HCl 20 MG Capsule TAKE 1 CAPSULE BY MOUTH ONCE DAILY Doxazosin Mesylate 4 MG Tablet TAKE 1 TABLET BY MOUTH ONCE DAILY AT BEDTIME Spironolactone 25 MG Tablet TAKE 1 TABLET BY MOUTH DAILY Amoxicillin-Pot Clavulanate 875-125 MG Tablet 1 tablet Orally every 12 hrs MagOx 400 400 (240 Mg) MG Tablet 1 tablet with food Orally Once a day Taking Lasix 40 MG Tablet 1 tablet Orally sat Taking Budesonide 0.25 MG/2ML Suspension 2 mL Inhalation Twice a day Taking Aspirin 81 81 MG Tablet Chewable 1 tablet Orally Once a day Taking Loratadine 10 MG Tablet 1 tablet Orally Once a day Taking Carvedilol 25 MG Tablet 1 tablet with food Orally Twice a day Taking Losartan Potassium 50 MG Tablet TAKE 1 TABLET BY MOUTH TWICE DAILY Taking Ventolin HFA 108 (90 Base) MCG/ACT Aerosol Solution 1 puff as needed Inhalation every 4 hrs Taking Ipratropium-Albuterol 0.5-2.5 (3) MG/3ML Solution INHALE 1 VIAL VIA NEBULIZER EVERY 6 HOURS NEEDED FOR 30 DAYS Taking Omeprazole 20 MG Capsule Delayed Release TAKE 1 CAPSULE BY MOUTH DAILY Taking FLUoxetine HCl 20 MG Capsule TAKE 1 CAPSULE BY MOUTH ONCE DAILY Taking Doxazosin Mesylate 4 MG Tablet TAKE 1 TABLET BY MOUTH ONCE DAILY AT BEDTIME Taking Spironolactone 25 MG Tablet TAKE 1 TABLET BY MOUTH DAILY Taking Amoxicillin-Pot Clavulanate 875-125 MG Tablet 1 tablet Orally every 12 hrs Taking MagOx 400 400 (240 Mg) MG Tablet 1 tablet with food Orally Once a day Not-Taking/PRNFluticasone Propionate 50 MCG/ACT Suspension 1 spray in each nostril Nasally Once a day Celecoxib 200 MG Capsule TAKE 1 CAPSULE BY MOUTH WITH FOOD ONCE DAILY Not-Taking/PRN Fluticasone Propionate 50 MCG/ACT Suspension 1 spray in each nostril Nasally Once a day Not-Taking/PRN Celecoxib 200 MG Capsule TAKE 1 CAPSULE BY MOUTH WITH FOOD ONCE DAILY DiscontinuedPraluent 150 MG/ML Solution Pen-injector as directed Subcutaneous once every 2 weeks Discontinued Praluent 150 MG/ML Solution Pen-injector as directed Subcutaneous once every 2 weeks * Allergies: P enicillin G Benzathine: Vaginal yeast infectionyes[Allergies Verified] Objective: * Vitals: H t: 66, Wt: 148, BMI:23.89, BP:148/70, Wt-k.13. weight at home is 148 BP 148/70. * Examination: G eneral Examination: GENERAL APPEARANCE: a lert, well hydrated, in no distress, female. HEAD: n ormocephalic. SKIN: g ood turgor. HEART: n o murmurs, rubs, gallops, regular rate and rhythm.? LUNGS: n o wheezes, rales, rhonchi, good air movement, clear to auscultation bilaterally. Assessment: * Assessment: 1. P anlobular emphysema - J43.1 (Primary) 2 . E ssential hypertension - I10 Plan: * Treatment: 2. E ssential hypertension Notes: well controlled pt reports that readings are good at noon and 7pm so wants to try not taking the losartan at thse times and stick to morning and night time meds and monitor BP readings; leave off losartin for now 3. O thers Notes: reviewed discharge summary from [facility] and [facility] * Procedure Codes: 9 [id number] TRANS CARE MGMT 7 DAY DISCH * * Sign off status: Completed true * Provider: Carolina Orantes MD Date: 0 03/23/2025 Generated for Kori white/Prisca/eTpaulsmitting on: 1 01/18/2025 08:30 PM EST History and Physical Notes * HPI (History of Present Illness) Category Sub-Category Detail Notes Category Not es Symptom(s) Telehealth Location of [facility] ider rendering services:: [address], [address] patient is a 84 yo female video telehealth visit, here for transitional care management visit, discharge summary has been reviewed and medications reconcilled/ here for follow up. here for follow up of hospital. was passed out in chair. had emmy. Location of patient:: at address listed in demographics for today's visit Patient identification confirmed using:: Name, Telehealth method:: Video co nference where patient is visible to the provider of care Consent:: Patient verbally c onsented to treatment, Patient verbally consented to billing insurance company, Patient informed of any privacy concerns related to method of visit Total time spend talking with patient (m inutes): 23 Examination Category Sub-Category Detail Notes Category Not es General Examination GENERAL APPEARANCE: alert, w ell hydrated, in no distress, female HEAD: normocephalic HEART: no murmurs, rubs, ga llops, regular rate and rhythm LUNGS: no wheezes, rales, r honchi, good air movement, clear to auscultation bilaterally SKIN: good turgor
--- OUTSIDE RECORDS SUMMARY | 2025-04-09 03:15 | XMS_ITS ---
Author Organization Jason Orantes MD Address [address] [place] [phone] Care Team Providers Care Equipment Oiler Name Role Phone Jason Orantes Primary Care Provider REASON FOR VISIT Repeat U/A Encounters Encounter Location Date Provider Diagnosis Jason Orantes MD [address] [place], [place] [phone] 04/09/2025 Jason Orantes UTI (urinary tract infection) N39.0 Assessments Encounter Date Diagnosis (ICD Code) Assessment Notes Treatment Notes Treatment Clinical Notes Section Notes 04/09/2025 UTI (urinary tract infection) (ICD-10 - N39.0) Plan Of Treatment Pending Test Test Name Order Date UA ClnCatch+Micro w/rflx Cult 04/09/2025 Progress Notes * Bhavna BOB LDOB:[birth year] (85 yo F)Acc No.[id number]:04/09/2025 Progress Note Patient: Bhavna EDWARDS Provider: Carolina Orantes MD :1940 A ge:84 Y S ex:Female Date:04/09/2025 Address:[facility] [address], [address], [facility] Subjective: * Chief Complaints: * 1 . Repeat U/A. * Medical History: Objective: * Vitals: Assessment: * Assessment: 1. U TI (urinary tract infection) - N39.0 Plan: * Treatment: * * The named appointment provid er may or may not be the originator of this progress note, and it is not deemed complete until electronically signed by the appointment provider. Sign off status: Pending * Provider: Carolina Orantes MD Date: 0 04/09/2025 Generated for Kori white/Prisca/Franck on: 1 01/18/2025 08:31 PM EST
--- OUTSIDE RECORDS SUMMARY | 2025-04-22 10:24 | XMS_ITS ---
Author Organization Jason Orantes MD Address [address] [place] [phone] Care Team Providers Care Distribution Operation Supervisor Name Role Phone Jason Orantes Primary Care Provider [phone] REASON FOR VISIT ? Cellulitis Medications Medication SIG (Take, Route, Frequency, Duration) Notes Start Date End Date Status Doxycycline Hyclate 100 MG 1 capsule Ora lly twice a day for 10 days 04/22/2025 Active Encounters Encounter Location Date Provider Diagnosis Jason Orantes MD [address] [place] [phone] 04/22/2025 Jason Orantes Plan Of Treatment Medication Medication Name Sig Start Date Stop Date Notes Doxycycline Hyclate 100 MG 1 capsule Ora lly twice a day for 10 days 04/22/2025 Progress Notes * Bhavna BOB LDOB:[birth year] (84 yo F)Acc No.[id number]:04/22/2025 Patient: Ana Bhavna CRUZ :1940 A ge:84 Y S ex:Female Address:[facility] [address], [address], [place], [address] * Refills Start Doxycycline Hyclate Capsule, 100 MG, Orally, 20 Capsule, 1 capsule, twice a day, 10 days * true * Date: Generated for Kori white/Prisca/Franck on: 01/18/2025 08:31 PM EST
--- OUTSIDE RECORDS SUMMARY | 2025-08-13 08:29 | XMS_ITS ---
Author Organization Jason Orantes MD Address [address] [place] [phone] Care Team Providers Care Psychiatric Clinician Name Role Phone Jason Orantes Primary Care Provider REASON FOR VISIT leg cellulitis Medications Medication SIG (Take, Route, Frequency, Duration) Notes Start Date End Date Status Doxycycline Hyclate 100 MG 1 capsule Ora lly twice a day for 10 days 08/13/2025 Active Encounters Encounter Location Date Provider Diagnosis Jason Orantes MD [address] [place] [address] [phone] 08/13/2025 Jason Orantes Plan Of Treatment Medication Medication Name Sig Start Date Stop Date Notes Doxycycline Hyclate 100 MG 1 capsule Ora lly twice a day for 10 days 08/13/2025 Progress Notes * Bhavna BOB LDOB:[birth year] (85 yo F)Acc No.[id number]:08/13/2025 Patient: Ana Bhavna CRUZ :1940 A ge:85 Y S ex:Female Address:[facility] [address], [place], [address] * Refills Start Doxycycline Hyclate Capsule, 100 MG, Orally, 20 Capsule, 1 capsule, twice a day, 10 days * true * Date: Generated for Kori white/Prisca/Franck on: 01/18/2025 08:32 PM EST
--- OUTSIDE RECORDS SUMMARY | 2025-08-23 08:55 | XMS_ITS ---
Author Organization Jason Orantes MD Address [address] [place] [phone] Care Team Providers Care Machine Ii Cutter Name Role Phone Jason Orantes Primary Care Provider REASON FOR VISIT leg cellulitis Medications Medication SIG (Take, Route, Frequency, Duration) Notes Start Date End Date Status Doxycycline Hyclate 100 MG 1 capsule Ora lly twice a day for 10 days 04/22/2025 Active Encounters Encounter Location Date Provider Diagnosis Jason Orantes MD [address] [place] [address] [phone] 08/23/2025 Jason Orantes Plan Of Treatment Medication Medication Name Sig Start Date Stop Date Notes Doxycycline Hyclate 100 MG 1 capsule Ora lly twice a day for 10 days 04/22/2025 Progress Notes * Bhavna BOB LDOB:[birth year] (85 yo F)Acc No.[id number]:08/23/2025 Patient: Ana Bhavna CRUZ :1940 A ge:85 Y S ex:Female Address:[facility] [address], [address], [place], [address] * Refills Refill Doxycycline Hyclate Capsule, 100 MG, Orally, 20 Capsule, 1 capsule, twice a day, 10 days * true * Date: Generated for Kori white/Prisca/[place] on: 01/18/2025 08:31 PM EST
--- OUTSIDE RECORDS SUMMARY | 2025-09-27 09:15 | XMS_ITS ---
Author Organization Jason Orantes MD Address [address] [place], [place] [id number] Care Team Providers Care Online Merchant Name Role Phone Jason Orantes Primary Care Provider Allergies Allergen (clinical drug ingredient) Drug/Non Drug Allergy documented on EMR Reaction Allergy Type Onset Date Status Penicillin G Benzathine Vaginal yeast infection Drug Allergy Active REASON FOR VISIT left leg edema, Savannah's cell [phone] Medications Medication SIG (Take, Route, Frequency, Duration) Notes Start Date End Date Status Nystatin 450573 UNIT/ML 4 mL Mouth/Throa t Four times a day for 14 day(s) 09/27/2025 Active metOLazone 5 MG 1 tablet Orally melissa y for 10 days 09/27/2025 Active Celecoxib 200 MG TAKE 1 CAPSULE BY MOUTH WITH FOOD ONCE DAILY for 90 Not-Taking Fluticasone Propionate 50 MCG/ACT 1 spray in each nostril Nasally Once a day Not-Taking FLUoxetine HCl 20 MG TAKE 1 CAPSULE BY MOUTH ONCE DAILY for 90 Active Omeprazole 20 MG TAKE 1 CAPSULE BY MOUTH DAILY for 90 Active Ipratropium-Albuterol 0.5-2.5 (3) MG/3ML INHALE 1 VIAL VIA NEBULIZER EVERY 6 HOURS NEEDED FOR 30 DAYS for 30 Active Ventolin HFA 108 (90 Base) MCG/ACT 1 puff as needed Inhalation every 4 hrs 03/07/2021 Active Losartan Potassium 25 MG TAKE 1 TABLET B Y MOUTH Once a day Active Spironolactone 25 MG TAKE 1 TABLET BY MO UTH DAILY for 90 Active Doxazosin Mesylate 2 MG TAKE 1 TABLET BY MOUTH ONCE DAILY AT BEDTIME Active Carvedilol 12.5 MG 1 tablet with food Orally once a day Active Loratadine 10 MG 1 tablet Orally Once a day Active Aspirin 81 81 MG 1 tablet Orally Once a day Active Lasix 40 MG 1 tablet Orally melissa y for 30 days Active Budesonide 0.25 MG/2ML 2 mL Inhalation T wice a day Active Vital Signs Height 66 in 09/27/2025 weight at home is 135 BP not taken today no temp Encounters Encounter Location Date Provider Diagnosis Jason Orantes MD [address] [place] [address] [place] [phone] 09/27/2025 Jason Orantes Thrush B37.0 and Edema R60.9 Assessments Encounter Date Diagnosis (ICD Code) Assessment Notes Treatment Notes Treatment Clinical Notes Section Notes 09/27/2025 Thrush (ICD-10 - B37.0) patient verbalized understandng of medication and directions for use 09/27/2025 Edema (ICD-10 - R60.9) patent verbalized understanding of medication and directions for use Plan Of Treatment Medication Medication Name Sig Start Date Stop Date Notes Nystatin 400023 UNIT/ML 4 mL Mouth/Throa t Four times a day for 14 day(s) 09/27/2025 metOLazone 5 MG 1 tablet Orally daily for 10 days 09/27/20 Treatment Notes Assessment Notes Thrush patient verbalized u nderstandng of medication and directions for use Edema patent verbalized un derstanding of medication and directions for use Next Appt Details Follow Up: 4 days, Reason: Progress Notes * Bhavna BOB LDOB:[birth year] (85 yo F)Acc No.[id number]:09/27/2025 Patient: Ana Bhavna CRUZ Provider: Carolina Orantes MD :1940 A ge:85 Y S ex:Female Date:09/27/2025 Address:[address], [address], [place], [place] Subjective: * Chief Complaints: * L eft leg edemaSheila's cell [phone] * HPI: S ymptom(s): patient is a 85 yo female video telehealth visit with complaint of swollen leg having a swollen leg. was very swollen yesterday. sore, is doing a little b regina today. also complaining of bad taste in mouth similar to thrush she says she has had in the past. Telehealth L ocation of provider rendering services: [address], [address], L ocation of [...] time spend talking with patient (minutes) 2 1. * ROS: G eneral/Constitutional: Denies C [place]. [...] Hospitalization/Major Diagno stic Procedure: * Medications: T akingBudesonide 0.25 MG/2ML Suspension 2 mL Inhalation Twice a day Lasix 40 MG Tablet 1 tablet Orally daily Aspirin 81 81 MG Tablet Chewable 1 tablet Orally Once a day Loratadine 10 MG Tablet 1 tablet Orally Once a day Carvedilol 12.5 MG Tablet 1 tablet with food Orally once a day Losartan Potassium 25 MG Tablet TAKE 1 TABLET BY MOUTH Once a day Ventolin HFA 108 (90 Base) MCG/ACT Aerosol Solution 1 puff as needed Inhalation every 4 hrs Ipratropium-Albuterol 0.5-2.5 (3) MG/3ML Solution INHALE 1 VIAL VIA NEBULIZER EVERY 6 HOURS NEEDED FOR 30 DAYS Doxazosin Mesylate 2 MG Tablet TAKE 1 TABLET BY MOUTH ONCE DAILY AT BEDTIME Spironolactone 25 MG Tablet TAKE 1 TABLET BY MOUTH DAILY Omeprazole 20 MG Capsule Delayed Release TAKE 1 CAPSULE BY MOUTH DAILY FLUoxetine HCl 20 MG Capsule TAKE 1 CAPSULE BY MOUTH ONCE DAILY Taking Budesonide 0.25 MG/2ML Suspension 2 mL Inhalation Twice a day Taking Lasix 40 MG Tablet 1 tablet Orally daily Taking Aspirin 81 81 MG Tablet Chewable 1 tablet Orally Once a day Taking Loratadine 10 MG Tablet 1 tablet Orally Once a day Taking Carvedilol 12.5 MG Tablet 1 tablet with food Orally once a day Taking Losartan Potassium 25 MG Tablet TAKE 1 TABLET BY MOUTH Once a day Taking Ventolin HFA 108 (90 Base) MCG/ACT Aerosol Solution 1 puff as needed Inhalation every 4 hrs Taking Ipratropium-Albuterol 0.5-2.5 (3) MG/3ML Solution INHALE 1 VIAL VIA NEBULIZER EVERY 6 HOURS NEEDED FOR 30 DAYS Taking Doxazosin Mesylate 2 MG Tablet TAKE 1 TABLET BY MOUTH ONCE DAILY AT BEDTIME Taking Spironolactone 25 MG Tablet TAKE 1 TABLET BY MOUTH DAILY Taking Omeprazole 20 MG Capsule Delayed Release TAKE 1 CAPSULE BY MOUTH DAILY Taking FLUoxetine HCl 20 MG Capsule TAKE 1 CAPSULE BY MOUTH ONCE DAILY Not-Taking/PRNFluticasone Propionate 50 MCG/ACT Suspension 1 spray in each nostril Nasally Once a day Celecoxib 200 MG Capsule TAKE 1 CAPSULE BY MOUTH WITH FOOD ONCE DAILY Not-Taking/PRN Fluticasone Propionate 50 MCG/ACT Suspension 1 spray in each nostril Nasally Once a day Not-Taking/PRN Celecoxib 200 MG Capsule TAKE 1 CAPSULE BY MOUTH WITH FOOD ONCE DAILY DiscontinuedAmoxicillin-Pot Clavulanate 875-125 MG Tablet 1 tablet Orally every 12 hrs MagOx 400 400 (240 Mg) MG Tablet 1 tablet with food Orally Once a day Doxycycline Hyclate 100 MG Capsule 1 capsule Orally twice a day Doxycycline Hyclate 100 MG Capsule 1 capsule Orally twice a day Medication List reviewed and reconciled with the patientDiscontinued Amoxicillin-Pot Clavulanate 875-125 MG Tablet 1 tablet Orally every 12 hrs Discontinued MagOx 400 400 (240 Mg) MG Tablet 1 tablet with food Orally Once a day Discontinued Doxycycline Hyclate 100 MG Capsule 1 capsule Orally twice a day Discontinued Doxycycline Hyclate 100 MG Capsule 1 capsule Orally twice a day Medication List reviewed and reconciled with the patient * Allergies: P enicillin G Benzathine: Vaginal yeast infectionyes[Allergies Verified] Objective: * Vitals: H t: 66. weight at home is 135 BP not taken today n o temp. * Examination: G eneral Examination: GENERAL APPEARANCE: a lert, well hydrated, in no distress.? EXTREMITIES: b oth legs with marked swelling and bulging of feet. Assessment: * Assessment: 1. T hrush - B37.0 (Primary) 2 . E candido - R60.9 Plan: * Treatment: 2. E candido Notes: patent verbalized understanding of medication and directions for use 3. O thers Start metOLazone Tablet, 5 MG, 1 tablet, Orally, daily, 10 days, 10 Tablet. * Procedure Codes: * Follow Up: 4 days * * Sign off status: Completed true * Provider: Carolina Orantes MD Date: 1 Generated for Kori white/Prisca/[place] on: 01/18/2025 08:31 PM EST History and Physical Notes * HPI (History of Present Illness) Category Sub-Category Detail Notes Category Not es Symptom(s) Telehealth Location of [facility] rendering services:: [address], [address] Location of patient:: at address listed in demographics for today's visit Patient identification confirmed using:: Name, Telehealth method:: Video co nference where patient is visible to the provider of care Consent:: Patient verbally c onsented to treatment, Patient verbally consented to billing insurance company, Patient informed of any privacy concerns related to method of visit Total time spend talking with patient (m inutes): 21 Examination Category Sub-Category Detail Notes Category Not es General Examination GENERAL APPEARANCE: alert, w ell hydrated, in no distress EXTREMITIES: both legs with marke d swelling and bulging of feet
--- OUTSIDE RECORDS SUMMARY | 2025-10-04 06:45 | XMS_ITS ---
Author Organization Jason Orantes MD Address [address] [place], [place] [id number] Care Team Providers Care Help Desk Intern Name Role Phone Jason Orantes Primary Care Provider [phone] REASON FOR VISIT 4 DAY F/U, Video [phone] Medications Medication SIG (Take, Route, Frequency, Duration) Notes Start Date End Date Status Spironolactone 25 MG TAKE 1 TABLET BY MO [facility] DAILY for 90 Active Omeprazole 20 MG TAKE 1 CAPSULE BY MOUTH DAILY for 90 Active FLUoxetine HCl 20 MG TAKE 1 CAPSULE BY MOUTH ONCE DAILY for 90 Active Fluticasone Propionate 50 MCG/ACT 1 spray in each nostril Nasally Once a day Not-Taking Celecoxib 200 MG TAKE 1 CAPSULE BY MOUTH WITH FOOD ONCE DAILY for 90 Not-Taking Doxazosin Mesylate 2 MG TAKE 1 TABLET BY MOUTH ONCE DAILY AT BEDTIME Active Carvedilol 12.5 MG 1 tablet with food Orally once a day Active Losartan Potassium 25 MG TAKE 1 TABLET B Y MOUTH Once a day Active Ventolin HFA 108 (90 Base) MCG/ACT 1 puff as needed Inhalation every 4 hrs 03/07/2021 Active Ipratropium-Albuterol 0.5-2.5 (3) MG/3ML INHALE 1 VIAL VIA NEBULIZER EVERY 6 HOURS NEEDED FOR 30 DAYS for 30 Active Nystatin 878513 UNIT/ML 4 mL Mouth/Throa t Four times a day for 14 day(s) 09/27/2025 Active Budesonide 0.25 MG/2ML 2 mL Inhalation T wice a day Active Lasix 40 MG 1 tablet Orally melissa y for 30 days Active Aspirin 81 81 MG 1 tablet Orally Once a day Active Loratadine 10 MG 1 tablet Orally Once a day Active metOLazone 5 MG 1 tablet Orally melissa y for 10 days 09/27/2025 Active Encounters Encounter Location Date Provider Diagnosis Jason Orantes MD [address] [place], [place] [phone] 10/04/2025 Jason Orantes Edema R60.9 Assessments Encounter Date Diagnosis (ICD Code) Assessment Notes Treatment Notes Treatment Clinical Notes Section Notes 10/04/2025 Edema (ICD-10 - R60.9) doing much better leg ulcer has healed. will adjust her metolozone to stop on day 6. daughter reprots the swelling is better than it has been in months at this point after 6 days on Metolozone Plan Of Treatment Treatment Notes Assessment Notes Edema doing much better le g ulcer has healed. will adjust her metolozone to stop on day 6. daughter reprots the swelling is better than it has been in months at this point after 6 days on Metolozone Progress Notes * Bhavna BOB LDOB:[birth year] (85 yo F)Acc No.[id number]:10/04/2025 Patient: Bhavna EDWARDS Provider: Carolina Orantes MD :1940 A ge:85 Y S ex:Female Date:10/04/2025 Address:[facility] [address], [address], [place], [place] Subjective: * Chief Complaints: * 4 DAY F/UVideo [phone] * HPI: S ymptom(s): Telehealth L ocation [...] time spend talking with patient (minutes) 2 2. patient is a 85 yo female here for 4 days follow up visit, bilateral leg swelling. * Medical History: * Surgical History: * Hospitalization/Major Diagno stic Procedure: * Medications: T akingmetOLazone 5 MG Tablet 1 tablet Orally daily Nystatin 081153 UNIT/ML Suspension 4 mL Mouth/Throat Four times a day Budesonide 0.25 MG/2ML Suspension 2 mL Inhalation [...] 1 CAPSULE BY MOUTH ONCE DAILY Taking metOLazone 5 MG Tablet 1 tablet Orally daily Taking Nystatin 898248 UNIT/ML Suspension 4 mL Mouth/Throat Four times a day Taking Budesonide 0.25 MG/2ML Suspension 2 mL [...] CAPSULE BY MOUTH WITH FOOD ONCE DAILY Objective: * Vitals: Assessment: * Assessment: 1. E candido - R60.9 (Primary) Plan: * Treatment: * Procedure Codes: * * Sign off status: Completed true * Provider: Carolina Orantes MD Date: 12/04/2024 Generated for Kori white/Prisca/Franck on: 01/18/2025 08:31 PM EST History and Physical Notes * HPI (History of Present Illness) Category Sub-Category Detail Notes Category Not es Symptom(s) Telehealth Location of [facility] rendering services:: [address], [address] patient is a 85 yo female here for 4 days follow up visit, bilateral leg swelling Location of patient:: at address listed in demographics for today's visit Patient identification confirmed using:: Name, Telehealth method:: Video co nference where patient is visible to the provider of care Consent:: Patient verbally c onsented to treatment, Patient verbally consented to billing insurance company, Patient informed of any privacy concerns related to method of visit Total time spend talking with patient (m inutes): 22
--- OUTSIDE RECORDS SUMMARY | 2025-10-04 11:45 | XMS_ITS ---
Author Organization Jason Orantes MD Address [address] [place] [phone] Care Team Providers Care Photo Mask Processor Name Role Phone Jason Orantes Primary Care Provider Encounters Encounter Location Date Provider Diagnosis Jason Orantes MD [address] [place] [phone] 10/04/2025 Jason Orantes Plan Of Treatment No Information Progress Notes * Bhavna BOB LDOB:[birth year] (85 yo F)Acc No.[id number]:10/04/2025 Patient: Ana JERARDOROB Bhavna Bailey Provider: Carolina Orantes MD :1940 A ge:85 Y S ex:Female Date:10/04/2025 Address:[address], [address], [id number] Subjective: * Chief Complaints: * * Medical History: Objective: * Vitals: Assessment: Plan: * Treatment: * * The named appointment provid er may or may not be the originator of this progress note, and it is not deemed complete until electronically signed by the appointment provider. Sign off status: Pending * Provider: Carolina Orantes MD Date: 12/04/2024 Generated for Kori white/Prisca/Franck on: 01/18/2025 08:32 PM EST
--- NOTE | 2025-11-17 15:58 | HO.NEPHOV_ITS ---
Vital Signs 11/17/25 16:02 Height 5 ft 7 in Weight 135 lb BMI 21.1 BP 180/80 H Blood Pressure Location Lt brachial Position Sitting Pulse 87 Pulse Source Pulse Oximeter Pulse Oximetry (%) 88 L Oxygen Delivery Method Nasal Cannula Intake Visit Reasons: F/U-LVM Certified Recreational Therapist Required: No Accompanied by: Daughter Allergies atorvastatin (Lipitor) Allergy (Severe, Verified 11/17/25 16:01) only oral hydralazine (HYDRALAZINE) Allergy (Severe, Verified 11/17/25 16:01) VOMITING, SYNCOPE labetalol (LABETALOL) Allergy (Unknown, Verified 11/17/25 16:01) SYNCOPE lisinopril (LISINOPRIL) Allergy (Unknown, Verified 11/17/25 16:01) HAIR FALLS OUT metoprolol (METOPROLOL) Allergy (Unknown, Verified 11/17/25 16:01) HAIR FALLS OUT penicillin V Allergy (Unknown, Verified 11/17/25 16:01) yeast infections HPI Comments Details: Bhavna was seen in follow up of her chronic kidney disease and hypertension. She had been accompanied by her daughter. 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 She had been having some edema. She is compliant with her medications. She has H/O CVA as well as carotid stenosis. She has no H/O chest pain, dizziness, PND, edema or orthopnea. She also follows up with Dr Isaac Freitas Message Clerk. Her renal function remains at baseline. Her BP is stable. [facility] Medical History Cor pulmonale Cough History of sepsis (~01/2017) Hyperlipidemia Hypertension Former smoker, stopped smoking in distant past CAD (coronary artery disease) Osteoporosis (~2018) Stenosis of middle cerebral artery History of TIAs History of CVA (cerebrovascular accident) (~07/2017) Dyspnea Atelectasis Chronic hypoxemic respiratory failure COPD (chronic obstructive pulmonary disease) Surgical History History of heart artery stent (~2011) History of hand surgery (~2004) History of left knee replacement (~2014) History of arthroscopy of right knee (~2003) History of carpal tunnel surgery of left wrist (~1998) Family History Brother CAD (coronary artery disease) Father CAD (coronary artery disease) Myocardial infarction Mother Leukemia Social History Housing: Care Home Do you presently have visiting nurse or other home services: Yes Alcohol intake: current Alcohol type: wine and hard liquor Patient Tobacco Use Status: Former Tobacco user Tobacco use type: Cigarette Years Smoked: (1ppd x 40yrs, quit 2001) e-Cigarette/Vaping Use: Former Use Advance Directives Date on File: 09/12/24 service: No Review of Systems Const All systems reviewed & are unremarkable except as noted in HPI and below Physical Exam Vital Signs: Last Vital Signs Pulse 87 11/17/25 16:02 BP 180/80 H 11/17/25 16:02 Pulse Ox 88 L 11/17/25 16:02 Oxygen Delivery Method Nasal Cannula 11/17/25 16:02 BMI result Body Mass Index 21.1 Const General: comfortable and no acute distress Orientation/consciousness: patient oriented x3 HEENT Head: Yes normocephalic Mouth: Normal oral and palatal mucosa present Eyes EOM: EOMs intact bilaterally Neck Neck: Yes supple Resp Auscultation: clear to auscultation bilaterally Cardio Jugular venous distension: no JVD Rate: regular rate GI Palpation (GI): Soft to palpation Auscultation: normal bowel sounds General: Yes no CVA tenderness Back/Spine/Pelvis Back: no CVA tenderness Skin General skin exam: no rashes or lesions noted Neuro General: patient oriented x3 and moves all extremities Extrem General: Yes no pedal edema Results Reviewed Nephrology Results: Hgb, (12.0-16.0) 12.5 g/dl 03/03/25 WBC, (4.8-10.8) 4.1 X10*3/uL L 03/03/25 Plt Count, (160-400) 197 X10*3/uL 03/03/25 Sodium, (135-145) 130 mmol/L L 03/03/25 Potassium, (3.3-5.1) 3.9 mmol/L 03/03/25 Chloride, (96-108) 95 mmol/L L 03/03/25 Carbon Dioxide, (22-29) 23 mmol/L 03/03/25 BUN, (9-16) 26 mg/dL H 03/03/25 Creatinine, (0.5-1.4) 1.22 mg/dL 03/03/25 Calcium, (8.4-10.2) 8.6 mg/dL 03/03/25 Urine Protein, (Neg-Trace) Negative mg/dL 05/18/25 Assessment & Plan Assessment & Plan (1) Hypertension: Code(s): I10 - Essential (primary) hypertension Category: Medical Qualifiers: Hypertension type: renovascular hypertension Qualified Code(s): I15.0 - Renovascular hypertension (2) CKD (chronic kidney disease) stage 3, GFR 30-59 ml/min: Code(s): N18.30 - Chronic kidney disease, stage 3 unspecified Category: Medical Qualifiers: Chronic kidney disease stage 3 subtype: stage 3a (GFR 45-59) Qualified Code(s): N18.31 - Chronic kidney disease, stage 3a Plan CKD 3 due to jeannette vascular disease and ischemic nephropathy ( Has CAD, carotid stenosis, intra cerebral MCA stenosis, MAVIS) BP at goal; Volume status sub optimal; C/W lasix 40 mg three times a week Tolerating ARB. Renal function remains at baseline Low sodium diet; Good hydration; No NSAID's Shall adjust her BP medications with evolving data All her and her daughters questions answered; F/U given Orders: Orders Protein Creatinine Ratio, Ur 3 Months I15.0 - Renovascular hypertension, N18.31 - Chronic kidney disease, stage 3a Blood Urea Nitrogen 3 Months I15.0 - Renovascular hypertension, N18.31 - Chronic kidney disease, stage 3a Electrolytes 3 Months I15.0 - Renovascular hypertension, N18.31 - Chronic kidney disease, stage 3a Creatinine 3 Months I15.0 - Renovascular hypertension, N18.31 - Chronic kidney disease, stage 3a Coding Level of Care Code Est Pt Level 4 (98330) Diagnoses Renovascular hypertension I15.0 Hypertension type: renovascular hypertension Stage 3a chronic kidney disease N18.31 Chronic kidney disease stage 3 subtype: stage 3a (GFR 45-59)
[2025-11-17 16:02] VITALS: BP 180/80; PULSE 87; O2SAT 88; BMI 21.1
--- OUTSIDE RECORDS SUMMARY | 2025-11-17 20:31 | XMS_ITS | Patient Health Record ---
Author [facility] Address [address] [place] [address] Care Team Providers Care Filtering Machine Tender Helper Name Role Phone Micah Antunez MD Primary Care Provider Montrell Horvath Unavailable [phone] Allergies Allergen (clinical drug ingredient) Drug/Non Drug [...] as directed Orally Once a day Not-Taking [place] 3 350 MG Orally Not-T aking Coenzyme [...] Order Date *Liver Function Test (LFT) 05/23/2016 [id number] NAIL, 1-5 10/19/2013 [id number] NAIL, 1-5 05/23/2016 Insurance Providers Payer Name Payer Address Payer Phone Subscriber Number Group Number Insured Name Patient Relationship to Insured Coverage Start Date Coverage End Date Medicare National [employer] [address] [facility] [address]21 [phone] [id number] Bhavna Gusman Self - patient is the insured [employer] [address] [place] [address] [id number] Bhavna Gusman Self - patient is the insured Medical (General) History Medical History History ICD Code Arthritis cholesterol back, hip, knee pain heart disease high blood pressure measles mumps chicken pox Surgical History Surgery Date(Month/Year) stent insertion (heart) joint replacement in thumb Hospitalization History Reason Date(Month/Year) [facility] & transfered to [facility] jose m penaloza numbness left. 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 03/08/2016 admitted to [facility] DX mild stroke, [address] ay 06/2017
--- OUTSIDE RECORDS SUMMARY | 2025-11-17 20:31 | XMS_ITS | Encounter Summary ---
Author Organization [facility] Address [address] [place] [address] Care Team Providers Care Head Of Design Name Role Phone Amanda Calvo MD Primary Care Provider Encounter Details Date Type Department Care Team (Late st Contact Info) Description 03/20/2025 Lab Requisition [facility] - Main Lab [address] [facility] [place] [address] Amanda Calvo MD [address] [facility] [address] [place] [address] Coronavirus infection, unspecified; Chronic kidney disease, unspecified [...] unspecified documented in this encounter Care Teams Head Of Design Relationship Specialty Start Date End Date Amanda Calvo MD [address] [facility] [address] [place] [address] PCP - General Geriatric Medicine 03/08/25 documented as of this encounter
--- OUTSIDE RECORDS SUMMARY | 2025-11-17 20:31 | XMS_ITS | Clinical Summary ---
Author Organization [address] Address [address] [place] [phone] Phone Care Team Providers Care Food Service Driver Name Role Phone Amanda Calvo MD Primary Care Provider [phone] Social History Tobacco Use Types Packs/Day Years [...] Influencers of Health Screening 03/08/2025 COVID-19 Vaccine (1 - 2024-2 6 season) 2025 Influenza Vaccine (#1) 2025 HIB [...] complete this topic Insurance MEDICARE Care Teams Food Service Driver Relationship Specialty Start Date End Date Amanda Calvo MD [address] [place] [address] [address] [place] [address] PCP - General Geriatric Medicine 03/08/25
--- OUTSIDE RECORDS SUMMARY | 2025-11-17 20:31 | XMS_ITS | Encounter Summary ---
Author Organization [facility] Address [address] [place] [address] Care Team Providers Care Medical Csr Name Role Phone Amanda Calvo MD Primary Care Provider [phone] Encounter Details Date Type Department Care Team (Late st Contact Info) Description 03/12/2025 Lab Requisition [facility] - Main Lab [address] [place] [address] Amanda Calvo MD [address] [place] [address] Coronavirus infection, unspecified; Chronic kidney disease, unspecified [...] LAB CHEMISTRY METHOD 03/15/2025 1:47 PM EDT [facility] Potassium 3.5 3.5 - 5.5 mmol/L LAB CHEMISTRY METHOD 03/15/2025 1:47 PM EDT [facility] Chloride 91(L) 96 - 110 mmol/L LAB CHEMISTRY METHOD 03/15/2025 1:47 PM [facility] CO2 32 21 - 32 mmol/L LAB CHEMISTRY METHOD 03/15/2025 1:47 PM [facility] Anion Gap 8 3 - 11 LAB CHEMISTRY METHOD 03/15/2025 1:47 PM T [facility] Glucose 68(L) 70 - 100 mg/dL LAB CHEMISTRY METHOD 03/15/2025 1:47 PM [facility] BUN 17 5 - 25 mg/dL LAB CHEMISTRY METHOD 03/15/2025 1:47 PM [facility] Creatinine 0.91 0.50 - 1.10 mg/dL LAB CHEMISTRY METHOD 03/15/2025 1:47 PM [facility] LAB eGFR 63 >=60 mL/min/1. 73m2 LAB CHEMISTRY METHOD 03/15/2025 1:47 PM [facility] LAB Comment:Calculation based on the Chronic Kidney Disease Epidemiology Collaboration (CKD-EPI) equation refit without adjustment for race. BUN/Creatinine Ratio 18.7 LAB CHEMISTRY METHOD 03/15/2025 1:47 PM [facility] Calcium 8.6 8.5 - 10.5 mg/dL LAB CHEMISTRY METHOD 03/15/2025 1:47 PM [facility] Blood Venous blood specimen / Unknown Venipuncture / Unknown 03/15/2025 7:37 AM EDT 03/15/2025 11:34 AM EDT us Amanda Calvo MD LAB BLOOD ORDERABLES Final Resul t [facility] [address] [place] [address], * Complete blood count (03/15/2025 7:37 AM EDT) [facility] WBC 10.8 4.8 - 10.8 K/mcL LAB HEMETOLOGY METHOD 03/15/2025 1:29 PM EDT [facility] RBC 4.30 3.80 - 4.80 M/mcL LAB HEMETOLOGY METHOD [facility] Hemoglobin 12.5 11.5 - 16.0 g/dL LAB HEMETOLOGY METHOD 03/15/2025 1:29 PM EDT [facility] Hematocrit 38.8 35.0 - 47.0 % LAB HEMETOLOGY METHOD 03/15/2025 1:29 PM [facility] MCV 90.4 79.0 - 98.0 FL LAB HEMETOLOGY METHOD 03/15/2025 1:29 PM [facility] MCH 29.1 27.0 - 32.0 pcg LAB HEMETOLOGY METHOD 03/15/2025 1:29 PM [facility] MCHC 32.2 32.0 - 37.0 g/dL LAB HEMETOLOGY METHOD 03/15/2025 1:29 PM [facility] RDW 13.3 11.0 - 15.0 % LAB HEMETOLOGY METHOD 03/15/2025 1:29 PM [facility] Platelets 328 130 - 400 K/mcL LAB HEMETOLOGY METHOD 03/15/2025 1:29 [facility] MPV 9.9 7.0 - 11.0 FL LAB HEMETOLOGY METHOD 03/15/2025 1:29 [facility] NRBC 0.0 <1.0 % LAB HEMETOLOGY METHOD 03/15/2025 1:29 PM [facility] NRBC Absolute 0.00 <0.10 K/mcL LAB HEMETOLOGY METHOD 03/15/2025 1:29 PM EDT [facility] Blood Venous blood specimen / Unknown Venipuncture / Unknown 03/15/2025 7:37 AM EDT 03/15/2025 11:34 AM EDT Amanda Calvo MD LAB BLOOD ORDERABLES Final Resul t [facility] [address] [place] [address], documented in this encounter Visit Diagnoses Diagnosis Coronavirus infection, unspecified Chronic kidney disease, unspecified documented in this encounter Care Teams Medical Csr Relationship Specialty Start Date End Date Amanda Calvo MD [address] [place] [address] [address] [place] [address] PCP - General Geriatric Medicine 03/08/25 documented as of this encounter
--- OUTSIDE RECORDS SUMMARY | 2025-11-17 20:31 | XMS_ITS | Encounter Summary ---
Author Organization [facility] Address [address] [place] [address] Care Team Providers Care Plastic Extruding Machine Operator Name Role Phone Amanda Calvo MD Primary Care Provider [phone] Encounter Details Date Type Department Care Team (Late st Contact Info) Description 03/08/2025 Lab Requisition [facility] - Main Lab [address] [facility] [place] [address] Amanda Calvo MD [address] [place] [address] COVID-19; Chronic kidney disease, unspecified; Vitamin D [...] Results * Folate (03/08/2025 5:46 AM EDT) [facility] Folate 6.5 2.8 - 17.0 ng/ml LAB CHEMISTRY METHOD 03/08/2025 1:18 PM EDT [facility] Blood Venous blood specimen / Unknown Venipuncture / Unknown 03/08/2025 5:46 AM EDT 03/08/2025 10:30 AM EDT us Amanda Calvo MD LAB BLOOD ORDERABLES Final Resul t Performing Organization Address [facility]/ZIP Co de Phone Number [facility] [address] [place] [address], [place] [phone] * (ABNORMAL) Vitamin D 25 hydroxy (03/08/2025 5:46 AM EDT) [facility] Vit D, 25-Hydroxy 14.9(L) 30.0 - 80.0 ng/mL LAB CHEMISTRY METHOD 03/08/2025 1:53 PM EDT [facility] Blood Venous blood specimen / Unknown Venipuncture / Unknown 03/08/2025 5:46 AM EDT 03/08/2025 10:30 AM EDT us Amanda Calvo MD LAB BLOOD ORDERABLES Final Resul t Performing Organization Address City/[facility]/ZIP Co de Phone Number [facility] [address] [place] [address], [place] [phone] * Vitamin B12 (03/08/2025 5:46 AM EDT) [facility] Vitamin B-12 250 250 - 900 pcg/mL LAB CHEMISTRY METHOD 03/08/2025 1:18 PM EDT [facility] Blood Venous blood specimen / Unknown Venipuncture / Unknown 03/08/2025 5:46 AM EDT 03/08/2025 10:30 AM EDT Amanda Calvo MD LAB BLOOD ORDERABLES Final Resul t [facility] [address] [place] [address], * (ABNORMAL) Comprehensive metabolic panel (03/08/2025 5:46 AM EDT) Sodium 134 133 - 145 mmol/L LAB CHEMISTRY METHOD 03/08/2025 1:18 PM [facility] Potassium 3.4(L) 3.5 - 5.5 mmol/L LAB CHEMISTRY METHOD 03/08/2025 1:18 PM [facility] Chloride 94(L) 96 - 110 mmol/L LAB CHEMISTRY METHOD 03/08/2025 1:18 PM [facility] CO2 33(H) 21 - 32 mmol/L LAB CHEMISTRY METHOD 03/08/2025 1:18 PM [facility] Anion Gap 7 3 - 11 LAB CHEMISTRY METHOD 03/08/2025 1:18 PM [facility] Glucose 79 70 - 100 mg/dL LAB CHEMISTRY METHOD 03/08/2025 1:18 PM [facility] BUN 23 5 - 25 mg/dL LAB CHEMISTRY METHOD 03/08/2025 1:18 PM [facility] Creatinine 0.88 0.50 - 1.10 mg/dL LAB CHEMISTRY METHOD 03/08/2025 1:18 PM [facility] eGFR 66 >=60 mL/min/1. 73m2 LAB CHEMISTRY METHOD 03/08/2025 1:18 PM [facility] LAB Comment:Calculation based on the Chronic Kidney Disease Epidemiology Collaboration (CKD-EPI) equation refit without adjustment for race. BUN/Creatinine Ratio 26.1 LAB CHEMISTRY METHOD 03/08/2025 1:18 PM EDT [facility] Calcium 8.7 8.5 - 10.5 mg/dL LAB CHEMISTRY METHOD 03/08/2025 1:18 PM T [facility] AST (SGOT) 20 10 - 42 unit/L LAB CHEMISTRY METHOD 03/08/2025 1:18 PM T [facility] ALT (SGPT) 19 10 - 60 unit/L LAB CHEMISTRY METHOD 03/08/2025 1:18 PM EDT [facility] Alkaline Phosphatase 46 42 - 121 unit/L LAB CHEMISTRY METHOD 03/08/2025 1:18 PM [facility] Total Protein 5.9(L) 6.0 - 8.0 g/dL LAB CHEMISTRY METHOD 03/08/2025 1:18 PM [facility] Albumin 3.0(L) 3.2 - 5.0 g/dL LAB CHEMISTRY METHOD 03/08/2025 1:18 PM [facility] Total Bilirubin 0.5 0.0 - 1.4 mg/dL LAB CHEMISTRY METHOD 03/08/2025 1:18 PM [facility] Blood Venous blood specimen / Unknown Venipuncture / Unknown 03/08/2025 5:46 AM EDT 03/08/2025 10:30 AM EDT us Amanda Calvo MD LAB BLOOD ORDERABLES Final Resul t [facility] [address] [place] [address], * Complete blood count (03/08/2025 5:46 AM EDT) WBC 7.2 4.8 - 10.8 K/mcL LAB HEMETOLOGY METHOD 03/08/2025 11:14 AM EDT [facility] RBC 4.30 3.80 - 4.80 M/mcL LAB HEMETOLOGY METHOD 03/08/2025 11:14 AM [facility] Hemoglobin 12.4 11.5 - 16.0 g/dL LAB HEMETOLOGY METHOD 03/08/2025 11:14 AM [facility] Hematocrit 37.3 35.0 - 47.0 % LAB HEMETOLOGY METHOD 03/08/2025 11:14 AM [facility] MCV 86.9 79.0 - 98.0 FL LAB HEMETOLOGY METHOD 03/08/2025 11:14 AM [facility] MCH 28.9 27.0 - 32.0 pcg LAB HEMETOLOGY METHOD 03/08/2025 11:14 AM [facility] MCHC 33.2 32.0 - 37.0 g/dL LAB HEMETOLOGY METHOD 03/08/2025 11:14 AM [facility] RDW 13.2 11.0 - 15.0 % LAB HEMETOLOGY METHOD 03/08/2025 11:14 AM [facility] Platelets 237 130 - 400 K/mcL LAB HEMETOLOGY METHOD 03/08/2025 11:14 AM [facility] MPV 10.2 7.0 - 11.0 FL LAB HEMETOLOGY METHOD 03/08/2025 11:14 AM [facility] NRBC 0.0 <1.0 % LAB HEMETOLOGY METHOD 03/08/2025 11:14 AM [facility] NRBC Absolute 0.00 <0.10 K/mcL LAB HEMETOLOGY METHOD 03/08/2025 11:14 AM [facility] Blood Venous blood specimen / Unknown Venipuncture / Unknown 03/08/2025 5:46 AM EDT 03/08/2025 10:30 AM EDT Amanda Calvo MD LAB BLOOD ORDERABLES Final Resul t [facility] [address] [place] [address], documented in this encounter Visit Diagnoses Diagnosis COVID-19 Chronic kidney disease, unspecified Vitamin D deficiency, unspecified documented in this encounter Care Teams Plastic Extruding Machine Operator Relationship Specialty Start Date End Date Amanda Calvo MD [address] [place] [address] [address] [place] [address] PCP - General Geriatric Medicine 03/08/25 documented as of this encounter
--- OUTSIDE RECORDS SUMMARY | 2025-11-17 20:31 | XMS_ITS | Encounter Summary ---
Author Organization [facility] Address [address] [place] [address] Care Team Providers Care Sand Buffer Name Role Phone Amanda Calvo MD Primary Care Provider Encounter Details Date Type Department Care Team (Late st Contact Info) Description 03/10/2025 Lab Requisition [facility] - Main Lab [address] [facility] [place] [address] Amanda Calvo MD [address] [place] [address] Hypokalemia Social History Tobacco Use Types Packs/Day [...] LAB CHEMISTRY METHOD 03/10/2025 12:56 PM EDT [facility] Potassium 3.8 3.5 - 5.5 mmol/L LAB CHEMISTRY METHOD 03/10/2025 12:56 PM T [facility] Chloride 93(L) 96 - 110 mmol/L LAB CHEMISTRY METHOD 03/10/2025 12:56 PM [facility] CO2 30 21 - 32 mmol/L LAB CHEMISTRY METHOD 03/10/2025 12:56 PM EDT [facility] Anion Gap 11 3 - 11 LAB CHEMISTRY METHOD 03/10/2025 12:56 PM [facility] Glucose 133(H) 70 - 100 mg/dL LAB CHEMISTRY METHOD 03/10/2025 12:56 PM [facility] BUN 19 5 - 25 mg/dL LAB CHEMISTRY METHOD 03/10/2025 12:56 PM [facility] Creatinine 0.99 0.50 - 1.10 mg/dL LAB CHEMISTRY METHOD 03/10/2025 12:56 PM [facility] eGFR 57(L) >=60 mL/min/1. 73m2 LAB CHEMISTRY METHOD 03/10/2025 12:56 PM [facility] LAB Comment:Calculation based on the Chronic Kidney Disease Epidemiology Collaboration (CKD-EPI) equation refit without adjustment for race. BUN/Creatinine Ratio 19.2 LAB CHEMISTRY METHOD 03/10/2025 12:56 PM [facility] Calcium 8.8 8.5 - 10.5 mg/dL LAB CHEMISTRY METHOD 03/10/2025 12:56 PM [facility] Blood Venous blood specimen / Unknown Venipuncture / Unknown 03/10/2025 9:47 AM EDT 03/10/2025 10:49 AM EDT us Amanda Calvo MD LAB BLOOD ORDERABLES Final Resul t [facility] [address] [place] [address], documented in this encounter Visit Diagnoses Diagnosis Hypokalemia Hypopotassemia documented in this encounter Care Teams Sand Buffer Relationship Specialty Start Date End Date Amanda Calvo MD [address] [place] [address] [address] [place] [address] PCP - General Geriatric Medicine 03/08/25 documented as of this encounter
--- OUTSIDE RECORDS SUMMARY | 2025-11-17 20:32 | XMS_ITS | Patient Health Record ---
Author Organization Jason Orantes MD Address [address] [place], [place] [id number] Care Team Providers Care Metal Mover Name Role Phone Jason Orantes Primary Care Provider Allergies Allergen (clinical drug ingredient) Drug/Non Drug Allergy documented on EMR Reaction Allergy Type Onset Date Status Penicillin G Benzathine Vaginal yeast infection Drug Allergy Active Results Component Value Reference Range Notes Urine Culture Reviewed date:03/04/2025 12:44:50 PM Interpretation: Performing Lab:[facility], [address] [place] [id number] Notes/Report: Urine Culture Report Result Urine Culture > 100,000 cfu/ml Urine Culture Mixed bacterial patti a characteristic of Urine Culture urogenital contamination. UA ClnCatch+Micro w/rflx Cul t Reviewed date:03/04/2025 01:21:24 PM Interpretation: Performing Lab:[address] [phone] Notes/Report: Urine, Clean Catch Color Urine Dark Yellow Appearance Urine Turbid PH 5.5 5.0-9.0 Glucose Urine UA Negative Negative mg/dL Urine Blood Moderate (2+) Negative Specific [place] - Urine >= 1.030 1.005-1.025 Urine Protein 30 (1+) Neg-Trace mg/dL Urine Ketones Trace Negative mg/dL Nitrite Urine Negative Negative Leukocyte Esterase Urine Moderate (2+) Negative RBC Urine 6-10 0-2 /HPF WBC Urine 6-10 0-5 /HPF Squamous Epithelial Cell Urine 6-10 0-2 /HPF Other Crystals Urine Present Bacteria Urine 4+ None Seen Hyaline Casts Urine 3-5 0-2 /LPF CT angio chest PE protocol Reviewed date:03/03/2025 02:08:01 PM Interpretation: Performing Lab: Notes/Report: [address] [address] [address] Scan Report Signed Patient: Bhavna Brannon MR#: [id number] : 1940 Acct:[id number] Age/Sex: 84 / F ADM Date: 03/02/25 Loc: .ED Attending Dr: Ordering Physician: Kaila James MD Date of Service: 03/02/25 Procedure(s): CT angio chest PE protocol Accession Number(s): [id number] cc: Jason Orantes MD; Kaila James MD Report Number: [id number]: Total DLP = 277.00 mGy-cm CLINICAL HISTORY: near syncope, hypoxic CT angiography chest with contrast. 3D Postprocessing. Comparison: CR - XR CHEST 1V - 03/02/25 17:14 EDT Findings: The heart size is normal. RV/LV ratio is normal. Moderate atherosclerotic calcification of the thoracic aorta and coronary arteries. No acute pulmonary embolus. The visualized thyroid and mediastinum are unremarkable. No consolidation or effusion. Moderate centrilobular emphysema of both lungs. The upper abdomen is unremarkable. The bones are intact. IMPRESSION: 1. No pulmonary emboli. No acute aortic syndrome. 2. Moderate centrilobular emphysema of both lungs. Lungs are otherwise clear. This document has been electronically signed by: Alexsander Noble MD on 03/02/2025 22:06:11 Dictated By: Alexsander Noble MD Signed By: <Electronically signed by Alexsander Noble MD in OV> 03/02/252206 DD/ 05 TD/TT: 03/02/252205 Sales Teacher: [address] [place] [address] CT Scan Report Signed Patient: Bhavna Brannon MR#: [id number] : 1940 Acct:[id number] Age/Sex: 84 / F ADM Date: 03/02/25 Loc: HO.ED Attending Dr: Ordering Physician: Kaila James MD Date of Service: 03/02/25 Procedure(s): CT ang io chest PE protocol Accession Number(s): [id number] cc: Jason Orantes MD; Kaila James MD Report Number: [id number]: Total DLP = 277.00 mGy-cm CLINICAL HISTORY: ne ar syncope, hypoxic CT angiography chest with contrast. 3D Postprocessing. Comparison: CR - XR CHEST 1V - 03/02/25 17:14 EDT Findings: The heart size is normal. RV/LV ratio is normal. Moderate atheroscler otic calcification of the thoracic aorta and coronary arteries. No acute pulmonary embolus. The visualized thyro id and mediastinum are unremarkable. No consolidation or effusion. Moderate centrilobular emphysema of both lungs. The upper abdomen is unremarkable. The bones are intact. IMPRESSION: 1. No pulmonary embo li. No acute aortic syndrome. 2. Moderate centrilobular emphysema of both lungs. Lungs are otherwise clear. This document has be en electronically signed by: Alexsander Noble MD on 03/02/2025 22:06:11 Dictated By: Alexsander Noble MD Signed By: <Electronically signed by Alexsander Noble MD in OV> 03/02/252206 DD/ 05 TD/TT: 03/02/252205 Sales Teacher: Complete Blood Count no Diff Reviewed date:03/04/2025 04:31:42 PM Interpretation: Performing Lab:[facility], [address] [place] [phone] Notes/Report: White Blood Count 4.1 4.8-10.8 X10*3/uL Red Blood Count 4.26 4.20-5.50 X10*6/uL Hemoglobin 12.5 12.0-16.0 g/dl Hematocrit 36.6 37.0-47.0 % Mean Corpuscular Volume 85.9 80.0-98.0 fL Mean Corpuscular Hemoglobin 29.3 27.0-33.0 pg Mean Corpuscular HGB Conc 34.2 31.0-35.0 g/dl Red Cell Distribution Width 13.9 11.0-16.0 % Platelet Count 197 160-400 X10*3/uL Mean Platelet Volume 9.7 9.4-12.3 fL NRBC Pct Auto 0.0 0.0-0.2 /100WBC NRBC Abs Auto 0.000 0.0-0.012 X10*3/uL Basic Metabolic Panel Reviewed date:03/04/2025 04:31:21 PM Interpretation: Performing Lab:[address] [phone] Notes/Report: Sodium 130 135-145 mmol/L Potassium 3.9 3.3-5.1 mmol/L Chloride 95 96-108 mmol/L Carbon Dioxide 23 22-29 mmol/L Anion Gap 16 12-20 Blood Urea Nitrogen 26 9-16 mg/dL Creatinine 1.22 0.5-1.4 mg/dL Creatinine Clr Calc Pharmacy 33.2 Provided height and weight: 167.64 cm, 66.8 kg. eGFR (calculated from the MDRD study equation) and eCrCl (calculated from the Cockcroft-Gault equation) are based on different parameters and may not yield comparable results. If eCrCl result is absurd, please check patient's height/weight. Estimated Glomerular Filt Rate 42 Chronic Kidney Disease: Estimated GFR < 60 mL/min/1.73m2 Severe Kidney Disease: Estimated GFR < 15 mL/min/1.73m2 Glucose Random 108 60-115 mg/dL Calcium 8.6 8.4-10.2 mg/dL UA ClnCatch+Micro w/rflx Cul t Reviewed date:05/21/2025 04:24:09 PM Interpretation: Performing Lab:[address] [phone] Notes/Report: Urine, Clean Catch Color Urine Yellow Appearance Urine Clear PH 5.0 5.0-9.0 Glucose Urine UA Negative Negative mg/dL Urine Blood Negative Negative Specific [place] - Urine 1.010 1.005-1.025 Urine Protein Negative Neg-Trace mg/dL Urine Ketones Negative Negative mg/dL Nitrite Urine Negative Negative Leukocyte Esterase Urine Negative Negative RBC Urine 0-2 0-2 /HPF WBC Urine 0-5 0-5 /HPF Squamous Epithelial Cell Urine 0-2 0-2 /HPF Bacteria Urine None Seen None Seen Hyaline Casts Urine 3-5 0-2 /LPF Reason For Referral No Information Medications Medication SIG (Take, Route, Frequency, Duration) Notes Start Date End Date Status metOLazone 5 MG TAKE 1 TABLET BY BENJI EVERY DAY FOR 10 DAYS for 10 Active Amoxicillin-Pot Clavulanate 875-125 MG TAKE 1 TABLET BY MOUTH TWICE A DAY FOR 10 DAYS for 10 Active Losartan Potassium 25 MG TAKE 1 TABLET B Y MOUTH Once a day Active Ventolin HFA 108 (90 Base) MCG/ACT 1 puff as needed Inhalation every 4 hrs 03/07/2021 Active Doxazosin Mesylate 2 MG TAKE 1 TABLET BY MOUTH ONCE DAILY AT BEDTIME Active Spironolactone 25 MG TAKE 1 TABLET BY [facility] DAILY for 90 Active Nystatin 438790 UNIT/ML 4 mL Mouth/Throa t Four times a day for 14 day(s) 09/27/2025 Active Omeprazole 20 MG TAKE 1 CAPSULE BY MOUTH DAILY for 90 Active Budesonide 0.25 MG/2ML 2 mL Inhalation T wice a day Active FLUoxetine HCl 20 MG TAKE 1 CAPSULE BY MOUTH ONCE DAILY for 90 Active Lasix 40 MG 1 tablet Orally melissa y for 30 days Active Fluticasone Propionate 50 MCG/ACT 1 spray in each nostril Nasally Once a day Not-Taking Aspirin 81 81 MG 1 tablet Orally Once a day Active Celecoxib 200 MG TAKE 1 CAPSULE BY MOUTH WITH FOOD ONCE DAILY for 90 Not-Taking Loratadine 10 MG 1 tablet Orally Once a day Active Carvedilol 12.5 MG 1 tablet with food Orally once a day Active Ipratropium-Albuterol 0.5-2.5 (3) MG/3ML INHALE 1 VIAL VIA NEBULIZER EVERY 6 HOURS NEEDED FOR 30 DAYS for 30 Active Immunizations Vaccine Route Administration Date Status Comme nts [...] High Dose IM Intramuscular 10/16/2024 Administer ed Influenza High Dose Unknown 09/02/2025 Administered Social History Tobacco Use: Social History Observation Description Date Details (start date - stop date) Former Smoker NA - NA Tobacco Use/Smoking Question Answer Notes Patient is [...] Never (0 point) Points 4 Interpretation Positive Problems Problem Type SNOMED Code ICD Code Onset Dates Problem Status W/U Status Risk Notes Problem 03006840 Age-related osteoporosis without current pathological fracture (M81.0) Active confirmed Problem Transient ischemic attack (246570823) TIA (transient ischemic attack) (G45.9) Active confirmed Problem 02014510 Vitamin D defici ency (E55.9) Active confirmed Problem 1809437 Panlobular emphy sema (J43.1) Active confirmed Problem 93458472804673771 Sciatica, righ t side (M54.31) Active confirmed Problem 15333503 Essential hypert ension (I10) Active confirmed Problem 409224178 History of TIA (transient ischemic attack) (Z86.73) Active confirmed Problem 298318704 History of coron meeta artery stent placement (Z95.5) Active confirmed Problem 908792433 Hot flashes (R23.2) Active confirmed Problem 18189400 Hypercholesterol emia (E78.00) Active confirmed Problem 143397404 Age-related inci pient cataract of both eyes (H25.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) Active confirmed Problem 205402221 Stage 3 chronic kidney disease, unspecified whether stage 3a or 3b CKD (N18.30) Active confirmed Vital Signs Blood pressure diastolic 70 mm Hg 03/23/2025 crow ght at home is 148 BP 148/70 Height 66 in 09/27/2025 weight at home is 135 BP not taken today no temp Blood pressure systolic 148 mm Hg 03/23/2025 weig ht at home is 148 BP 148/70 Weight 148 lbs 03/23/2025 weight at home is 148 BP 148/70 BMI 23.89 kg/m2 03/23/2025 weight at home is 148 BP 148/70 Encounters Encounter Location Date Provider Diagnosis Jason Orantes MD [address] [place] [id number] 03/23/2025 Jason Orantes Essential hypertension I10 and Panlobular emphysema J43.1 Jason Orantes MD [address] [place] [id number] 09/27/2025 Jason Orantes Thrush B37.0 and Edema R60.9 Jason Orantes MD [address] [place] [id number] 10/04/2025 Jason Orantes Edema R60.9 Jason Orantes MD [address] [place] [id number] 11/17/2024 Jason Orantes MD [address] [place] [id number] 01/08/2025 Jason Orantes MD [address] [place] [id number] 01/08/2025 Jason Orantse MD [address] [place] [address] [id number] 01/08/2025 Jason Orantes MD [address] [place] [id number] 01/11/2025 Jason Orantes MD [address] [place] [id number] 03/08/2025 Jason Orantes MD [address] [place] [id number] 04/22/2025 Jason Orantes MD [address] [place], [place] [id number] 08/13/2025 Jason Orantes MD [address] [place], [place] [id number] 08/23/2025 Jason Orantes Assessments Encounter Date Diagnosis (ICD Code) Assessment [...] emphysema (ICD-10 - J43.1) doing much better 09/27/2025 Thrush (ICD-10 - B37.0) patient verbalized understandng of medication and directions for use 09/27/2025 Edema (ICD-10 - R60.9) patent verbalized understanding of medication and directions for use 10/04/2025 Edema (ICD-10 - R60.9) doing much better leg ulcer has healed. will adjust her metolozone to stop on day 6. daughter reprots the swelling is better than it has been in months at this point after 6 days on Metolozone 03/23/2025 Other reviewed discharge summary from [facility] and [facility] Plan Of Treatment Pending Test Test Name Order Date Electrocardiogram (EKG) 05/07/2019 XR CHEST 2 VIEW PA & LAT 03/07/2021 Insurance Providers Payer Name Payer Address Payer Phone Subscriber Number Group Number Insured Name Patient Relationship to Insured Coverage Start Date Coverage End Date MEDICARE [address] [place] [address] [id number] Bhavna Gusman Self - patient is the insured [employer] [place] [address] [place] [phone] [id number] Bhavna Gusman Self - patient is the insured Medical (General) History Medical History History ICD Code probable stroke on asa so is on plavix t oo cathie's mother if bp gets normal, then she would pass o ut due to a stenosis in carotid
== END 2025-11-17 16:21 | disposition home or self-care (01) ==
LOC: HO.HKA 15:38
PROVIDERS: PCP Internal Medicine; Visit Provider Internal Medicine Nephrology
DX: I15.0 Renovascular hypertension (principal); N18.31 Chronic kidney disease, stage 3a
CPT/HCPCS: 99214

== ENCOUNTER → 2025-11-17 15:37 | Outpatient (BNVA) | payer MEDICARE, SELFPAY | PROVIDERS: PCP Internal Medicine; Visit Provider Internal Medicine Nephrology | DX: I15.0 Renovascular hypertension (principal); N18.31 Chronic kidney disease, stage 3a | CPT/HCPCS: 99212 ==